=== PATIENT | female | born 1960 | race Caucasian/White ===

== ENCOUNTER 2017-11-16 03:11 | Inpatient (IN) | payer MEDICARE, OTHER ==
[2017-11-16] MEDS ORDERED: PROPOFOL 1,000 MG in EMPTY BAG 1 BAG IV ONE (03:20)
[2017-11-16] MEDS ORDERED: NALOXONE 0.4 MG/ML 1 ML VIAL IV PRN (03:48)
--- NOTE | 2017-11-16 03:53 | ED ---
General Adult HPI - General Chief complaint: Shortness of Breath Stated complaint: pneumonia Time Seen by Provider: 11/16/17 03:15 Source: EMS, RN notes reviewed, old records reviewed Mode of arrival: EMS Limitations: physical limitation - History of Present Illness Initial comments: This is a 57-year-old female to the ER for evaluation. Patient's transfer to [facility] in for evaluation of shortness of breath, patient is ambulate and abated secondary to respiratory failure. Patient is accepted in transfer for ICU admission - Related Data Allergies Allergy/AdvReac Type Severity Reaction Status Date / Time fentanyl AdvReac Unknown Verified 11/16/17 03:32 morphine AdvReac Unknown Verified 11/16/17 03:32 oxycodone AdvReac Unknown Verified 11/16/17 03:32 Penicillins AdvReac Unknown Verified 11/16/17 03:32 prednisone AdvReac Unknown Verified 11/16/17 03:44 pregabalin [From Lyrica] AdvReac Unknown Verified 11/16/17 03:32 Review of Systems ROS Statement: Those systems with pertinent positive or pertinent negative responses have been documented in the HPI. ROS Other: All systems not noted in ROS Statement are negative. Past Medical History Past Medical History: Asthma, Coronary Artery Disease (CAD), COPD, Fibromyalgia , Seizure Disorder Additional Past Medical History / Comment(s): arthritis, Headache, hypoglycemia , osteoporosis History of Any Multi-Drug Resistant Organisms: None Reported Past Surgical History: Hysterectomy Additional Past Surgical History / Comment(s): Arthroscopy of knee, Colonoscopy , EGD, c--section, neck-plate, carpal tunnel release, stents-, right rib 3 beningn tumors, ingrown toenail, liver biopsy, bunionectomy, catheterization of both left and right heart, mediport. Past Psychological History: Anxiety, Depression Smoking Status: Unknown if ever smoked Past Alcohol Use History: Unable to Obtain Past Drug Use History: Unable to Obtain General Exam Limitations: physical limitation General appearance: alert, obtunded, in distress Head exam: Present: atraumatic, normocephalic, normal inspection Eye exam: Present: normal appearance, PERRL, EOMI. Absent: scleral icterus, conjunctival injection, periorbital swelling ENT exam: Present: normal exam, mucous membranes moist Neck exam: Present: normal inspection. Absent: tenderness, meningismus, lymphadenopathy Respiratory exam: Present: respiratory distress, wheezes, accessory muscle use, decreased breath sounds, prolonged expiratory. Absent: rales, rhonchi, stridor Cardiovascular Exam: Present: regular rate, normal rhythm, normal heart sounds. Absent: systolic murmur, diastolic murmur, rubs, gallop, clicks GI/Abdominal exam: Present: soft, normal bowel sounds. Absent: distended, tenderness, guarding, rebound, rigid Extremities exam: Present: normal inspection, full ROM, normal capillary refill. Absent: tenderness, pedal edema, joint swelling, calf tenderness Back exam: Present: normal inspection Neurological exam: Present: alert, oriented X3, CN II-XII intact Psychiatric exam: Present: normal affect, normal mood Skin exam: Present: warm, dry, intact, normal color. Absent: rash Course Vital Signs 11/16/17 03:22 Temperature 97.5 F L Pulse Rate 100 Respiratory 16 Rate Blood Pressure 118/66 O2 Sat by Pulse 100 Oximetry - Reevaluation(s) Reevaluation #1: 11/16/17 03:52 Transferring paperwork is reviewed Reevaluation #2: 11/16/17 03:52 Spoke with transferring facility physician re patient condition Medical Decision Making - Medical Decision Making 57 female the ER for evaluation regarding respiratory failure, no history of lung cancer with severe Estrace stress, no improvement with breathing treatments per secondary facility. Patient was intubated and transferred to Hospital for ICU treatment - Radiology Data Radiology results: report reviewed (Chest x-ray positive pulmonary edema), image reviewed Critical Care Time Critical Care Time: Yes Total Critical Care Time: 31 Disposition Clinical Impression: Acute pulmonary edema, Pleural effusion, Acute respiratory failure Disposition: ADMITTED IP TO THIS [facility] Condition: Critical Referrals: Nonstaff,Physician [Primary Care Provider] - 1-2 days
[2017-11-16 03:58] LABS: ABG Base Excess 8.6 mmol/L; ABG HCO3 35 mmol/L (21-25); ABG PH 7.31 (7.35-7.45); ABG PO2 138 mmHg (83-108); ABG TCO2 37 mmol/L (19-24)
[2017-11-16] MEDS ORDERED: DEXTROSE 5%-0.45% NACL 1,000 ML IV SCH (04:00)
[2017-11-16 04:01] LABS: ABG PCO2 70 mmHg (35-45)
--- NOTE | 2017-11-16 04:17 | XR ---
EXAM: XR Chest, 1 View CLINICAL HISTORY: ITS.REASON XR Reason: Pain TECHNIQUE: Frontal view of the chest. COMPARISON: Chest x-ray dated 01/01/2016. FINDINGS: Lungs: Interval development of mild interstitial prominence in both perihilar and suprahilar regions. This is most notable in the right upper lobe with there is more focal opacity. Mild atelectasis in both lung bases. Pleural space: Unremarkable. No pneumothorax. Heart: Unremarkable. No cardiomegaly. Mediastinum: See above. Bones/joints: Unremarkable. Tubes, lines and devices: Endotracheal tube terminates approximately 1. 5 cm above the yamil. Recommend pulling back slightly. Other findings: Postop findings related to anterior cervical fusion. IMPRESSION: 1. Endotracheal tube terminates approximately 1.5 cm above the yamil. Recommend pulling back slightly. 2. Interval development of mild interstitial prominence in both perihilar and suprahilar regions. This is most notable in the right upper lobe with there is more focal opacity. This may represent scarring with possible superimposed pneumonia.
[2017-11-16 06:09] LABS: Glucose,Whole Blood 242 mg/dL (75-99)
[2017-11-16 06:09] LABS: Glucose,Whole Blood 235 mg/dL (75-99)
[2017-11-16] MEDS: PROPOFOL 1,000 MG in EMPTY BAG 1 BAG IV SCH ×4 (06:10→22:33)
[2017-11-16 06:53] LABS: Basophils % (A) 0 %; Eosinophils % (A) 0 %; HCT 32.9 % (34.0-46.0); HGB 10.4 gm/dL (11.4-16.0); Hypochromasia Slight; Lymphocytes # (A) 0.2 k/uL (1.0-4.8); Lymphocytes % (A) 2 %; MCH 29.9 pg (25.0-35.0); MCHC 31.4 g/dL (31.0-37.0); MCV 95.2 fL (80.0-100.0); Mean Platelet Volume 7.8; Monocytes # (A) 0.4 k/uL (0-1.0); Monocytes % (A) 3 %; Neutrophils # (A) 12.5 k/uL (1.3-7.7); Neutrophils % (A) 95 %; Platelet Count 192 k/uL (150-450); RBC 3.46 m/uL (3.80-5.40); RDW 15.3 % (11.5-15.5); WBC 13.2 k/uL (3.8-10.6)
[2017-11-16 07:11] LABS: Appearance,Urine Clear (Clear); Bacteria,Urine Rare /hpf; Bilirubin,Urine Negative (Negative); Blood,Urine Trace (Negative); Color,Urine Yellow; Glucose,Urine (UA) Negative (Negative); Hyaline Casts,Urine 7 /lpf (0-2); Ketones,Urine Negative (Negative); Leukocyte Esterase,Urine Negative (Negative); Mucus,Urine Few /hpf; Nitrite,Urine Negative (Negative); Protein,Urine 1+ (Negative); RBC,Urine 13 /hpf (0-5); Squamous Epithelial Cell,Urine 1 /hpf (0-4); Urobilinogen,Urine <2.0 mg/dL (<2.0); WBC,Urine 4 /hpf (0-5)
[2017-11-16] MEDS: SODIUM CHLORIDE 0.9% 1,000 ML IV SCH ×3 (07:11→23:49)
[2017-11-16 07:13] LABS: Anion Gap 11 mmol/L; Blood Urea Nitrogen 14 mg/dL (7-17); Calcium 8.8 mg/dL (8.4-10.2); Carbon Dioxide 31 mmol/L (22-30); Chloride 98 mmol/L (98-107); Glucose 214 mg/dL (74-99); Magnesium 2.1 mg/dL (1.6-2.3); Phosphorus 3.6 mg/dL (2.5-4.5); Potassium 3.7 mmol/L (3.5-5.1); Sodium 140 mmol/L (137-145)
[2017-11-16] MEDS: IPRATROPIUM-ALBUTEROL 3 ML NEB INHALATION SCH ×4 (07:30→19:32)
[2017-11-16] MEDS: LEVOFLOXACIN 750MG-D5W PMX 750 MG in DEXTROSE/WATER 1 150ML.BAG IVPB SCH (07:56)
[2017-11-16] MEDS: CHLORHEXIDINE GLUCONATE 15 ML CUP MUCOUS MEM SCH ×2 (07:56→20:10)
[2017-11-16] MEDS ORDERED: Potassium Replacement Protocol 1 EACH MISC MISCELLANE PRN (08:03)
[2017-11-16] MEDS: PANTOPRAZOLE 40 MG/10 ML VIAL IV SCH (08:28)
[2017-11-16] MEDS: ENOXAPARIN 40 MG/0.4 ML SYRINGE SQ SCH (08:28)
[2017-11-16] MEDS ORDERED: POTASSIUM BICARBONATE/CIT AC 20 MEQ TABLET.EFF NG-TUBE SCH (09:00)
[2017-11-16] MEDS: AZTREONAM 1 GM in SODIUM CHLORIDE 0.9% 50 ML IVPB SCH ×3 (10:01→23:49)
[2017-11-16 10:48] LABS: Glucose,Whole Blood 157 mg/dL (75-99)
--- NOTE | 2017-11-16 11:35 | P.HPIM ---
History of Present Illness Patient is a pleasant 57-year-old female came in intubated from [facility]. Patient wasn't a day with the severe exacerbation patient went into respiratory failure initially was on BiPAP subsequently intubated patient is presently on 50% FiO2 PEEP of 5 pedal edema 400. RASS 0 to -1. Patient had occasional upper lobe opacity because of which patient is on antibiotics in the form of levofloxacin and Azetreonam. Patient doesn't have any fevers. No significant out put endotracheal tube. Patient has an NG tube in place. Review of Systems Unable to obtain due to her clinical condition. Past Medical History Past Medical History: Asthma, Coronary Artery Disease (CAD), Cancer, Chest Pain / Angina, COPD, CVA/TIA, Fibromyalgia, GERD/Reflux, Hyperlipidemia, Hypertension , Myocardial Infarction ([place]), Osteoarthritis (OA), Respiratory Disorder, Seizure Disorder, Syncope Additional Past Medical History / Comment(s): Chronic respiratory failure, home O2 2L/NC ATC, R Lung cancer with surgery/chemo/radiation about 1.5 yrs ago (tx at [facility]), bronchitis, [place]-many years ago-exact date unknown, TIA, migraines, last seizure 2012, DJD, chronic back/cervical pain, limited ROM in neck, R knee pain/derangement, osteoporosis, IBS, benign colon lesion, diarrhea- chronic, hiatal hernia, insomnia, hypoglycemia, rhinitis, TMJ syndrome, R hand thumb tendon surgery-limited ROM and pt is R handed. Brother and caregiver state that pt has a very good apetite and eats well but continues to lose weight. Caregiver also jsut learned and is concerned that pt's last BM was a week ago. Last Myocardial Infarction Date:: unkn-years ago History of Any Multi-Drug Resistant Organisms: None Reported Past Surgical History: Section, Heart Catheterization, Heart Catheterization With Stent, Hysterectomy Additional Past Surgical History / Comment(s): R lung lobectomy, mediport, R rib 3 benign tumors, liver bx-nonmalignant tumor, PCI with stent 2011, EGDs, colonoscopy, cervical plate, knee arthroscopy-laterallity unknown, R carpal tunnel release, tendons cut toes bilateral feet, bilateral great toes bunionectomy/ingrown toenails, R thumb tendon surgery. Past Anesthesia/Blood Transfusion Reactions: No Reported Reaction Date of Last Stent Placement:: 08/03/12 Smoking Status: Current every day smoker - Past Family History Father History Unknown: Yes Additional Family Medical History / Comment(s): Father was an alcoholic and was murdered at the age of 52 yrs. Mother Family Medical History: Cancer, Coronary Artery Disease (CAD), Hypertension Additional Family Medical History / Comment(s): Mother of metastatic cancer -primary unknown to family. Medications and Allergies Home Medications Medication Instructions Recorded Confirmed Type Aspirin 81 mg PO DAILY 11/16/17 11/16/17 History Clopidogrel [Plavix] 75 mg PO DAILY 11/16/17 11/16/17 History Dronedarone [Multaq] 400 mg PO AC-BID 11/16/17 11/16/17 History Ezetimibe [Zetia] 10 mg PO DAILY 11/16/17 11/16/17 History Fludrocortisone [Florinef] 0.1 mg PO BID 11/16/17 11/16/17 History Fluticasone/Salmeterol [Advair 1 puff INHALATION RT-DAILY 11/16/17 11/16/17 History 500-50 Diskus] HYDROcodone/APAP 10-325MG [Mojave 10 mg PO TID 11/16/17 11/16/17 History 10-325] Ipratropium/Albuterol Sulfate 1 puff INHALATION RT-QID 11/16/17 11/16/17 History [Combivent Respimat Inhaler] Isosorbide Mononitrate ER [Imdur] 30 mg PO DAILY 11/16/17 11/16/17 History LORazepam [Ativan] 0.5 mg PO BID 11/16/17 11/16/17 History Lubiprostone [Amitiza] 8 mcg PO DAILY 11/16/17 11/16/17 History Midodrine [ProAmatine] 5 mg PO TID 11/16/17 11/16/17 History Montelukast [Singulair] 10 mg PO DAILY 11/16/17 11/16/17 History Nitroglycerin Sl Tabs [Nitrostat] 0.4 mg SUBLINGUAL Q5M PRN 11/16/17 11/16/17 History Pitavastatin Calcium [Livalo] 4 mg PO DAILY 11/16/17 11/16/17 History Potassium Chloride ER [K-Dur 20] 20 meq PO DAILY 11/16/17 11/16/17 History Ranolazine [Ranexa] 500 mg PO BID 11/16/17 11/16/17 History lamoTRIgine [LaMICtal] 200 mg PO DAILY 11/16/17 11/16/17 History Allergies Allergy/AdvReac Type Severity Reaction Status Date / Time fentanyl AdvReac Unknown Verified 11/16/17 07:48 morphine AdvReac Unknown Verified 11/16/17 07:48 oxycodone AdvReac Unknown Verified 11/16/17 07:48 Penicillins AdvReac Unknown Verified 11/16/17 07:48 prednisone AdvReac Unknown Verified 11/16/17 07:48 pregabalin [From Lyrica] AdvReac Unknown Verified 11/16/17 07:48 Physical Exam Vitals: Vital Signs Temp Pulse Resp BP Pulse Ox 11/16/17 11:00 97.2 F L 90 20 133/69 97 11/16/17 10:30 91 18 137/73 97 11/16/17 10:00 89 17 118/65 96 11/16/17 09:30 88 14 125/68 99 11/16/17 09:00 88 19 116/63 100 11/16/17 08:30 89 19 122/66 100 11/16/17 08:00 96.9 F L 90 20 110/64 100 11/16/17 07:52 91 11/16/17 07:33 88 11/16/17 07:30 88 19 111/65 100 11/16/17 07:00 89 20 104/59 100 11/16/17 06:30 89 21 100/58 99 11/16/17 06:15 98.0 F 89 19 140/61 100 11/16/17 06:06 91 11/16/17 05:23 90 16 139/70 94 L 11/16/17 04:30 92 16 116/60 100 11/16/17 03:58 16 11/16/17 03:30 91 18 118/66 100 11/16/17 03:22 97.5 F L 100 16 118/66 100 Intake and Output 11/15/17 11/16/17 11/16/17 22:59 06:59 14:59 Intake Total 1.169 505.923 Output Total 325 160 Balance -323.831 345.923 Intake: IV 475 Sodium Chloride 0.9% 1, 475 000 ml @ 125 mls/hr IV . Q8H [facility] Rx#:[id number] Intake, IV Titration 1.169 30.923 Amount Propofol 1,000 mg In 1.169 Empty Bag 1 bag @ Titrate IV .Q0M [facility] Rx#: [id number] Propofol 1,000 mg In 30.923 Empty Bag 1 bag @ Titrate IV .Q0M [facility] Rx#: [id number] Output: Gastric Drainage 175 Urine 150 160 Uretheral (Bass) 150 Other: Voiding Method Incontinent Incontinent Weight 41.1 kg 41.1 kg PHYSICAL EXAMINATION: GENERAL: Intubated arousable, ventilator settings as mentioned above. HEENT: Pupils are round and equally reacting to light. EOMI. No scleral icterus. No conjunctival pallor. Normocephalic, atraumatic. No pharyngeal erythema. No thyromegaly. CARDIOVASCULAR: S1 and S2 present. No murmurs, rubs, or gallops. PULMONARY: Decreased air entry with expiratory wheezing ABDOMEN: Soft, nontender, nondistended, normoactive bowel sounds. No palpable organomegaly. MUSCULOSKELETAL: No joint swelling or deformity. EXTREMITIES: No cyanosis, clubbing, or pedal edema. NEUROLOGICAL: Moving all 4 limbs SKIN: No rashes. Results CBC & Chem 7: 11/16/17 06:33 11/16/17 06:33 Labs: Abnormal Lab Results - Last 24 Hours (Table) 11/16/17 11/16/17 11/16/17 Range/Units 03:54 06:06 06:07 WBC (3.8-10.6) k/uL RBC (3.80-5.40) m/uL Hgb (11.4-16.0) gm/dL Hct (34.0-46.0) % Neutrophils # (1.3-7.7) k/uL Lymphocytes # (1.0-4.8) k/uL ABG pH 7.31 L (7.35-7.45) ABG pCO2 70 H* (35-45) mmHg ABG pO2 138 H (83-108) mmHg ABG HCO3 35 H (21-25) mmol/L ABG Total CO2 37 H (19-24) mmol/L ABG O2 Saturation 99.0 H (94-97) % Carbon Dioxide (22-30) mmol/L Creatinine (0.52-1.04) mg/dL Glucose (74-99) mg/dL POC Glucose (mg/dL) 242 H 235 H (75-99) mg/dL Urine Protein (Negative) Urine Blood (Negative) Urine RBC (0-5) /hpf Urine Bacteria (None) /hpf Hyaline Casts (0-2) /lpf Urine Mucus (None) /hpf 11/16/17 11/16/17 11/16/17 Range/Units 06:33 06:33 06:45 WBC 13.2 H (3.8-10.6) k/uL RBC 3.46 L (3.80-5.40) m/uL Hgb 10.4 L (11.4-16.0) gm/dL Hct 32.9 L (34.0-46.0) % Neutrophils # 12.5 H (1.3-7.7) k/uL Lymphocytes # 0.2 L (1.0-4.8) k/uL ABG pH (7.35-7.45) ABG pCO2 (35-45) mmHg ABG pO2 (83-108) mmHg ABG HCO3 (21-25) mmol/L ABG Total CO2 (19-24) mmol/L ABG O2 Saturation (94-97) % Carbon Dioxide 31 H (22-30) mmol/L Creatinine 0.35 L (0.52-1.04) mg/dL Glucose 214 H (74-99) mg/dL POC Glucose (mg/dL) (75-99) mg/dL Urine Protein 1+ H (Negative) Urine Blood Trace H (Negative) Urine RBC 13 H (0-5) /hpf Urine Bacteria Rare H (None) /hpf Hyaline Casts 7 H (0-2) /lpf Urine Mucus Few H (None) /hpf 11/16/17 Range/Units 10:45 WBC (3.8-10.6) k/uL RBC (3.80-5.40) m/uL Hgb (11.4-16.0) gm/dL Hct (34.0-46.0) % Neutrophils # (1.3-7.7) k/uL Lymphocytes # (1.0-4.8) k/uL ABG pH (7.35-7.45) ABG pCO2 (35-45) mmHg ABG pO2 (83-108) mmHg ABG HCO3 (21-25) mmol/L ABG Total CO2 (19-24) mmol/L ABG O2 Saturation (94-97) % Carbon Dioxide (22-30) mmol/L Creatinine (0.52-1.04) mg/dL Glucose (74-99) mg/dL POC Glucose (mg/dL) 157 H (75-99) mg/dL Urine Protein (Negative) Urine Blood (Negative) Urine RBC (0-5) /hpf Urine Bacteria (None) /hpf Hyaline Casts (0-2) /lpf Urine Mucus (None) /hpf Microbiology - Last 24 Hours (Table) 11/16/17 03:24 Sputum Culture - Preliminary Sputum 11/16/17 06:45 Urine Culture - Preliminary Urine,Catheterized Thrombosis Risk Factor Assmnt - Choose All That Apply Any of the Below Risk Factors Present?: Yes Each Factor Represents 1 point: Abnormal pulmonary function (COPD), Age 41-60 years, Serious lung disease incl. pneumonia (< 1month) Other Risk Factors: Yes Each Risk Factor Represents 2 Points: Patient confined to bed, Malignancy Other congenital or acquired thrombophilia - If yes, enter type in comment: No Thrombosis Risk Factor Assessment Total Risk Factor Score: 7 Thrombosis Risk Factor Assessment Level: High Risk Assessment and Plan Plan: -Acute hypercapnic respiratory failure: Secondary to COPD exacerbation patient is ventilator dependent at this point of time. Doing clinically well can you assist with strides and medics as mentioned above. She doesn't use oxygen at home. -right upper lobe pneumonia -Mild protein Malnutrition: From chronic smoking. Carotid artery disease -Hyperlipidemia -hypertension -Gases patient is reflux disease for rest of the above-mentioned chronic medical problems patient will be resumed on appropriate home medications.
--- NOTE | 2017-11-16 13:31 | P.CNPUL ---
History of Present Illness Consult date: 11/16/17 Requesting physician: Lori Juarez Reason for consult: other (Acute hypoxic and hypercapnic respiratory failure secondary to COPD) Chief complaint: Shortness of breath cough History of present illness: This is a 57-year-old female with history of severe underlying COPD, patient is O2 dependent, but not prednisone dependent. Known history of lung cancer and previous lobectomy followed by chemotherapy and radiation therapy done in [facility]. Patient never seen a morning nanny, has been followed mostly by her oncologist all along. She is also followed by her primary care physician Dr. Nguyen. On Monday, the patient presented to [facility] complaining of shortness of breath and cough, some workup was done according to the family including a CT of the chest, patient was discharged home and advised to follow-up with her primary care physician. She was told that the workup did not show any significant abnormalities. However she was reevaluated again in the ER complaining of worsening shortness of breath cough and wheezing. Apparently she was in severe respiratory distress and she was intubated. Transferred to [facility], admitted to the ICU, and I was asked to see her on consultation. Patient was felt to have severe hypoxic and hypercapnic respiratory failure requiring intubation and mechanical ventilation. Chest x-ray showed adequate placement of the endotracheal tube, it also showed some mild interstitial prominence in the perihilar and suprahilar regions and a minimal focal opacity noted in the right upper lobe. This is a new finding compared to chest x-ray from December of 2015. Patient was placed on bronchodilators, antibiotics, steroids, and she was also placed on GI and DVT prophylaxis/vent bundle. Patient is sedated, on propofol, however I was able to obtain adequate history from family members at bedside. Review of Systems According to the family patient has been losing significant amount of weight over the last few months. ROS unobtainable: due to endotracheal tube (According to the family, patient has been relatively asymptomatic until 2 days ago. Please refer to the history of present illness. No history suggestive recurrent lung cancer, no headaches no blurred vision no dizziness, no nausea no vomiting no abdominal pain no melena no hematemesis no dysuria and no frequency no urgency.) All systems: negative (Some weight loss according to family members over the last few months.) Past Medical History Past Medical History: Asthma, Coronary Artery Disease (CAD), Cancer, Chest Pain / Angina, COPD, CVA/TIA, Fibromyalgia, GERD/Reflux, Hyperlipidemia, Hypertension , Myocardial Infarction (AR), Osteoarthritis (OA), Respiratory Disorder, Seizure Disorder, Syncope Additional Past Medical History / Comment(s): Chronic respiratory failure, home O2 2L/NC ATC, R Lung cancer with surgery/chemo/radiation about 1.5 yrs ago (tx at [facility]), bronchitis, AR-many years ago-exact date unknown, TIA, migraines, last seizure 2012, DJD, chronic back/cervical pain, limited ROM in neck, R knee pain/derangement, osteoporosis, IBS, benign colon lesion, diarrhea- chronic, hiatal hernia, insomnia, hypoglycemia, rhinitis, TMJ syndrome, R hand thumb tendon surgery-limited ROM and pt is R handed. Brother and caregiver state that pt has a very good apetite and eats well but continues to lose weight. Caregiver also jsut learned and is concerned that pt's last BM was a week ago. Last Myocardial Infarction Date:: unkn-years ago History of Any Multi-Drug Resistant Organisms: None Reported Past Surgical History: Section, Heart Catheterization, Heart Catheterization With Stent, Hysterectomy Additional Past Surgical History / Comment(s): R lung lobectomy, mediport, R rib 3 benign tumors, liver bx-nonmalignant tumor, PCI with stent 2011, EGDs, colonoscopy, cervical plate, knee arthroscopy-laterallity unknown, R carpal tunnel release, tendons cut toes bilateral feet, bilateral great toes bunionectomy/ingrown toenails, R thumb tendon surgery. Past Anesthesia/Blood Transfusion Reactions: No Reported Reaction Date of Last Stent Placement:: 08/03/12 Smoking Status: Current every day smoker - Past Family History Father History Unknown: Yes Additional Family Medical History / Comment(s): Father was an alcoholic and was murdered at the age of 52 yrs. Mother Family Medical History: Cancer, Coronary Artery Disease (CAD), Hypertension Additional Family Medical History / Comment(s): Mother of metastatic cancer -primary unknown to family. Medications and Allergies Home Medications Medication Instructions Recorded Confirmed Type Aspirin 81 mg PO DAILY 11/16/17 11/16/17 History Clopidogrel [Plavix] 75 mg PO DAILY 11/16/17 11/16/17 History Dronedarone [Multaq] 400 mg PO AC-BID 11/16/17 11/16/17 History Ezetimibe [Zetia] 10 mg PO DAILY 11/16/17 11/16/17 History Fludrocortisone [Florinef] 0.1 mg PO BID 11/16/17 11/16/17 History Fluticasone/Salmeterol [Advair 1 puff INHALATION RT-DAILY 11/16/17 11/16/17 History 500-50 Diskus] HYDROcodone/APAP 10-325MG [[place] 10 mg PO TID 11/16/17 11/16/17 History 10-325] Ipratropium/Albuterol Sulfate 1 puff INHALATION RT-QID 11/16/17 11/16/17 History [Combivent Respimat Inhaler] Isosorbide Mononitrate ER [Imdur] 30 mg PO DAILY 11/16/17 11/16/17 History LORazepam [Ativan] 0.5 mg PO BID 11/16/17 11/16/17 History Lubiprostone [Amitiza] 8 mcg PO DAILY 11/16/17 11/16/17 History Midodrine [ProAmatine] 5 mg PO TID 11/16/17 11/16/17 History Montelukast [Singulair] 10 mg PO DAILY 11/16/17 11/16/17 History Nitroglycerin Sl Tabs [Nitrostat] 0.4 mg SUBLINGUAL Q5M PRN 11/16/17 11/16/17 History Pitavastatin Calcium [Livalo] 4 mg PO DAILY 11/16/17 11/16/17 History Potassium Chloride ER [K-Dur 20] 20 meq PO DAILY 11/16/17 11/16/17 History Ranolazine [Ranexa] 500 mg PO BID 11/16/17 11/16/17 History lamoTRIgine [LaMICtal] 200 mg PO DAILY 11/16/17 11/16/17 History Allergies Allergy/AdvReac Type Severity Reaction Status Date / Time fentanyl AdvReac Unknown Verified 11/16/17 07:48 morphine AdvReac Unknown Verified 11/16/17 07:48 oxycodone AdvReac Unknown Verified 11/16/17 07:48 Penicillins AdvReac Unknown Verified 11/16/17 07:48 prednisone AdvReac Unknown Verified 11/16/17 07:48 pregabalin [From Lyrica] AdvReac Unknown Verified 11/16/17 07:48 Physical Exam Vitals: Vital Signs Temp Pulse Resp BP Pulse Ox 11/16/17 13:00 100 18 163/79 96 11/16/17 12:30 90 20 156/75 99 11/16/17 12:00 97.2 F L 90 17 161/80 100 11/16/17 11:57 92 11/16/17 11:33 89 11/16/17 11:30 88 14 154/79 99 11/16/17 11:00 97.2 F L 90 20 133/69 97 11/16/17 10:30 91 18 137/73 97 11/16/17 10:00 89 17 118/65 96 11/16/17 09:30 88 14 125/68 99 11/16/17 09:00 88 19 116/63 100 11/16/17 08:30 89 19 122/66 100 11/16/17 08:00 96.9 F L 90 20 110/64 100 11/16/17 07:52 91 11/16/17 07:33 88 11/16/17 07:30 88 19 111/65 100 11/16/17 07:00 89 20 104/59 100 11/16/17 06:30 89 21 100/58 99 11/16/17 06:15 98.0 F 89 19 140/61 100 11/16/17 06:06 91 11/16/17 05:23 90 16 139/70 94 L 11/16/17 04:30 92 16 116/60 100 11/16/17 03:58 16 11/16/17 03:30 91 18 118/66 100 11/16/17 03:22 97.5 F L 100 16 118/66 100 Intake and Output 11/15/17 11/16/17 11/16/17 22:59 06:59 14:59 Intake Total 1.169 755.923 Output Total 325 275 Balance -323.831 480.923 Intake: IV 725 Sodium Chloride 0.9% 1, 725 000 ml @ 125 mls/hr IV . Q8H [facility] Rx#:[id number] Intake, IV Titration 1.169 30.923 Amount Propofol 1,000 mg In 1.169 Empty Bag 1 bag @ Titrate IV .Q0M [facility] Rx#: [id number] Propofol 1,000 mg In 30.923 Empty Bag 1 bag @ Titrate IV .Q0M [facility] Rx#: [id number] Output: Gastric Drainage 175 Urine 150 275 Uretheral (Bass) 150 Other: Voiding Method Incontinent Incontinent Weight 41.1 kg 41.1 kg Physical Exam: Revealed a 57-year-old female, intubated, on mechanical ventilation. Patient looks cachectic, and chronically ill, frail. Head: Atraumatic, normocephalic, Eyes: PERRLA, EOMI, no icterus. HEENT: Dry mucous membranes. [Neck is supple.] [No neck masses.] [No thyromegaly.] [No JVD.] Endotracheal tube seems to be intact. Chest: [Diminished breath sounds at the bases, some wheezing bilaterally, no chest wall tenderness, symmetrical expansion noted. Cardiac Exam: [Normal S1 and S2, no S3 gallop, no murmur.] Abdomen: [Soft, nontender, no megaly, no rebound, no guarding, normal bowel sounds.] Extremities: [No clubbing, no edema, no cyanosis.] Neurological Exam: Arousable, follows simple instructions, presently on propofol. Psychiatric: Could not be assessed while on mechanical ventilation. Musculoskeletal: Could not be fully assessed. Results - Laboratory Findings CBC and BMP: 11/16/17 06:33 11/16/17 06:33 ABG ABG pH 7.31 (7.35-7.45) L 11/16/17 03:54 ABG pCO2 70 mmHg (35-45) H* 11/16/17 03:54 ABG pO2 138 mmHg (83-108) H 11/16/17 03:54 ABG O2 Saturation 99.0 % (94-97) H 11/16/17 03:54 Abnormal lab findings: Abnormal Labs 11/16/17 11/16/17 11/16/17 03:54 06:06 06:07 WBC RBC Hgb Hct Neutrophils # Lymphocytes # ABG pH 7.31 L ABG pCO2 70 H* ABG pO2 138 H ABG HCO3 35 H ABG Total CO2 37 H ABG O2 Saturation 99.0 H Carbon Dioxide Creatinine Glucose POC Glucose (mg/dL) 242 H 235 H Urine Protein Urine Blood Urine RBC Urine Bacteria Hyaline Casts Urine Mucus 11/16/17 11/16/17 11/16/17 06:33 06:33 06:45 WBC 13.2 H RBC 3.46 L Hgb 10.4 L Hct 32.9 L Neutrophils # 12.5 H Lymphocytes # 0.2 L ABG pH ABG pCO2 ABG pO2 ABG HCO3 ABG Total CO2 ABG O2 Saturation Carbon Dioxide 31 H Creatinine 0.35 L Glucose 214 H POC Glucose (mg/dL) Urine Protein 1+ H Urine Blood Trace H Urine RBC 13 H Urine Bacteria Rare H Hyaline Casts 7 H Urine Mucus Few H 11/16/17 10:45 WBC RBC Hgb Hct Neutrophils # Lymphocytes # ABG pH ABG pCO2 ABG pO2 ABG HCO3 ABG Total CO2 ABG O2 Saturation Carbon Dioxide Creatinine Glucose POC Glucose (mg/dL) 157 H Urine Protein Urine Blood Urine RBC Urine Bacteria Hyaline Casts Urine Mucus - Diagnostic Findings Chest x-ray: image reviewed (As noted in HPI.) Assessment and Plan Assessment: Impression: 1 acute hypoxic and hypercapnic respiratory failure requiring intubation and mechanical ventilation secondary to COPD, suspect underlying right upper lobe community-acquired pneumonia. 2 history of bronchogenic carcinoma, previous lobectomy followed by radiation and chemotherapy in the last few years. 3 acute community-acquired the right upper lobe pneumonia is strongly suspected. 4 history of coronary artery disease 5 history of fibromyalgia 6 history of benign essential hypertension 7 history of previous AR 8 history of seizure disorder, last seizure was in 2012. 9 history of GERD 10 history of migraine cephalgia. 11 history of irritable bowel syndrome with chronic diarrhea. And intermittent constipation. Recommendation: Continue present supportive care measures, continue mechanical ventilation, antibiotics, bronchodilators, steroids, nutritional support, GI and DVT prophylaxis, had a long discussion with all family members at bedside, plan to address reevaluation for possible weaning in the next 24 hours. All her labs, x-rays, medications, were all reviewed. We'll continue to follow closely. Critical care time is 45 minutes. Time with Patient: Greater than 30
[2017-11-16] MEDS: DEXAMETHASONE SOD PHOSPHATE 4 MG/ML 1 ML VIAL IV SCH ×3 (14:14→23:50)
[2017-11-16 14:50] LABS: Hemoglobin A1C 5.5 % (4.0-6.0)
[2017-11-16] MEDS: ATENOLOL 25 MG TAB PO SCH ×2 (15:21→20:10)
[2017-11-16] MEDS ORDERED: ISOSORBIDE MONONITRATE ER 30 MG TAB.ER.24H PO SCH ×2 (15:59→17:00)
[2017-11-16 17:33] LABS: Glucose,Whole Blood 109 mg/dL (75-99)
[2017-11-16] MEDS: ISOSORBIDE DINITRATE 10 MG TAB PO SCH ×2 (17:38→23:49)
[2017-11-16] MEDS: LORazepam 2 MG/ML INJ IV PRN ×2 (18:37→21:34)
[2017-11-16] MEDS: lamoTRIgine 100 MG TAB PO SCH (20:11)
[2017-11-16] MEDS: hydrALAZINE HCL 20 MG/ML 1 ML VIAL IVP PRN (22:34)
[2017-11-17 01:56] LABS: Glucose,Whole Blood 149 mg/dL (75-99)
[2017-11-17 04:44] LABS: Basophils % (A) 0 %; Eosinophils % (A) 0 %; HCT 31.2 % (34.0-46.0); HGB 9.9 gm/dL (11.4-16.0); Hypochromasia Slight; Lymphocytes # (A) 0.3 k/uL (1.0-4.8); Lymphocytes % (A) 4 %; MCH 29.8 pg (25.0-35.0); MCHC 31.6 g/dL (31.0-37.0); MCV 94.5 fL (80.0-100.0); Mean Platelet Volume 8.6; Monocytes # (A) 0.3 k/uL (0-1.0); Monocytes % (A) 4 %; Neutrophils # (A) 7.4 k/uL (1.3-7.7); Neutrophils % (A) 92 %; Platelet Count 187 k/uL (150-450); RDW 15.4 % (11.5-15.5); WBC 8.1 k/uL (3.8-10.6)
[2017-11-17 05:04] LABS: ALT 28 U/L (9-52); AST 11 U/L (14-36); Albumin 2.7 g/dL (3.5-5.0); Alkaline Phosphatase 78 U/L (38-126); Anion Gap 8 mmol/L; Blood Urea Nitrogen 17 mg/dL (7-17); Calcium 9.1 mg/dL (8.4-10.2); Carbon Dioxide 29 mmol/L (22-30); Chloride 103 mmol/L (98-107); Glucose 150 mg/dL (74-99); Magnesium 1.9 mg/dL (1.6-2.3); Phosphorus 3.7 mg/dL (2.5-4.5); Potassium 3.9 mmol/L (3.5-5.1); Sodium 140 mmol/L (137-145); Total Bilirubin 0.2 mg/dL (0.2-1.3); Total Protein 5.2 g/dL (6.3-8.2)
[2017-11-17] MEDS ORDERED: Magnesium Replacement Protocol 1 EACH MISC MISCELLANE PRN (05:30)
[2017-11-17 05:37] LABS: Glucose,Whole Blood 139 mg/dL (75-99)
[2017-11-17] MEDS ORDERED: POTASSIUM BICARBONATE/CIT AC 20 MEQ TABLET.EFF NG-TUBE SCH (06:00)
[2017-11-17] MEDS: MAGNESIUM SULFATE-D5W PMX 1 GM in DEXTROSE/WATER 1 100ML.BAG IVPB SCH ×2 (06:03→08:48)
[2017-11-17] MEDS: DEXAMETHASONE SOD PHOSPHATE 4 MG/ML 1 ML VIAL IV SCH ×3 (06:03→18:31)
[2017-11-17] MEDS: SODIUM CHLORIDE 0.9% 1,000 ML IV SCH ×3 (06:34→23:03)
[2017-11-17] MEDS: LEVOFLOXACIN 750MG-D5W PMX 750 MG in DEXTROSE/WATER 1 150ML.BAG IVPB SCH (07:07)
[2017-11-17] MEDS: IPRATROPIUM-ALBUTEROL 3 ML NEB INHALATION SCH ×4 (07:10→18:33)
[2017-11-17 08:23] LABS: ABG Base Excess 7.8 mmol/L; ABG HCO3 32 mmol/L (21-25); ABG Oxygen Saturation 97.7 % (94-97); ABG PCO2 45 mmHg (35-45); ABG PH 7.46 (7.35-7.45); ABG PO2 102 mmHg (83-108); ABG TCO2 33 mmol/L (19-24)
[2017-11-17] MEDS: PROPOFOL 1,000 MG in EMPTY BAG 1 BAG IV SCH ×2 (08:44→17:12)
[2017-11-17] MEDS: LORazepam 2 MG/ML INJ IV PRN ×2 (08:44→16:18)
[2017-11-17] MEDS: CHLORHEXIDINE GLUCONATE 15 ML CUP MUCOUS MEM SCH ×2 (08:52→21:09)
[2017-11-17] MEDS: ISOSORBIDE DINITRATE 10 MG TAB PO SCH ×3 (08:52→21:09)
[2017-11-17] MEDS: ATENOLOL 25 MG TAB PO SCH ×2 (08:52→21:09)
[2017-11-17] MEDS: ENOXAPARIN 40 MG/0.4 ML SYRINGE SQ SCH (08:52)
[2017-11-17] MEDS: PANTOPRAZOLE 40 MG/10 ML VIAL IV SCH (08:53)
[2017-11-17] MEDS: lamoTRIgine 100 MG TAB PO SCH (08:54)
[2017-11-17] MEDS ORDERED: ISOSORBIDE MONONITRATE ER 30 MG TAB.ER.24H PO SCH (09:00)
[2017-11-17] MEDS ORDERED: lamoTRIgine 100 MG TAB PO SCH (09:00)
--- NOTE | 2017-11-17 09:15 | XR ---
EXAMINATION TYPE: XR chest 1V DATE OF EXAM: 11/17/2017 COMPARISON: 11/16/2017 HISTORY: Pain TECHNIQUE: Single frontal view of the chest is obtained. FINDINGS: Hyperinflation compatible COPD and there is blunting of both costophrenic angles. Prominen ce the right hilum noted. ET tube noted with Mediport catheter. Surgical change overlying the cervica l spine. No sizable pneumothorax. Interstitium is stable. Tenting of the right hemidiaphragm likely i s chronic. IMPRESSION: Correlate for COPD. There is mild improvement of the interstitium. The right hilum does appear to be prominent in size and there is previous surgery. Correlate clinically. Follow-up CT scan could BE obtained as clinically warranted.
[2017-11-17] MEDS ORDERED: BISACODYL 10 MG SUPP RECTAL STA (09:51)
[2017-11-17] MEDS: LACTULOSE 20 GM/30 ML CUP PO SCH ×2 (10:07→21:10)
[2017-11-17] MEDS: AZTREONAM 1 GM in SODIUM CHLORIDE 0.9% 50 ML IVPB SCH (10:10)
[2017-11-17 12:07] LABS: Glucose,Whole Blood 110 mg/dL (75-99)
--- NOTE | 2017-11-17 12:35 | P.PN ---
Subjective Progress Note Date: 11/17/17 Principal diagnosis: Acute hypoxic and hypercapnic respiratory failure secondary to COPD and right upper lobe community-acquired pneumonia. This is a 57-year-old female with history of severe underlying COPD, patient is O2 dependent, but not prednisone dependent. Known history of lung cancer and previous lobectomy followed by chemotherapy and radiation therapy done in [facility]. Patient never seen a professional model, has been followed mostly by her oncologist all along. She is also followed by her primary care physician Dr. Nguyen. On Monday, the patient presented to [facility] complaining of shortness of breath and cough, some workup was done according to the family including a CT of the chest, patient was discharged home and advised to follow-up with her primary care physician. She was told that the workup did not show any significant abnormalities. However she was reevaluated again in the ER complaining of worsening shortness of breath cough and wheezing. Apparently she was in severe respiratory distress and she was intubated. Transferred to [facility], admitted to the ICU, and I was asked to see her on consultation. Patient was felt to have severe hypoxic and hypercapnic respiratory failure requiring intubation and mechanical ventilation. Chest x-ray showed adequate placement of the endotracheal tube, it also showed some mild interstitial prominence in the perihilar and suprahilar regions and a minimal focal opacity noted in the right upper lobe. This is a new finding compared to chest x-ray from December of 2015. Patient was placed on bronchodilators, antibiotics, steroids, and she was also placed on GI and DVT prophylaxis/vent bundle. Patient is sedated, on propofol, however I was able to obtain adequate history from family members at bedside. Reevaluated today on 11/17/2017, patient remains on mechanical ventilation, same vent settings, no evidence of receiving pink, and her plateau pressures are in the teens. ABG showed a pO2 of 102 pCO2 of 45 pH of 7.46. Patient remains on propofol, and at times was given Ativan for sedation and for significantly elevated blood pressure she is also on Apresoline as needed for high blood pressure. Patient continues to have significant amount of secretions via the endotracheal tube, hence no plans to wean and extubate today. Patient has been appropriate as far as the mental status is concerned, I lower dose of sedation she seems to follow all instructions. Her CBC is relatively normal except for hemoglobin of 9.9. Electrolytes and basic metabolic profile are normal. ABG showed a pO2 of 102 pCO2 of 45 pH of 7.46. Reflecting mostly a picture of metabolic alkalosis. And adequate respiratory compensation. Chest x-ray showed mild improvement, however the right hilum does appear a bit prominent. Objective - Vital Signs Vital signs: Vital Signs Temp 98.1 F 11/17/17 08:00 Pulse 84 11/17/17 11:20 Resp 20 11/17/17 11:00 BP 144/78 11/17/17 11:00 Pulse Ox 99 11/17/17 11:00 Intake & Output 11/16/17 11/17/17 11/17/17 18:59 06:59 18:59 Intake Total 9611.153 9221.6 889.667 Output Total 665 900 480 Balance 527.031 7087.6 409.667 Weight 41.1 kg 39.2 kg Intake: IV 1350 1500 325 Sodium Chloride 0.9% 1, 1350 1500 325 000 ml @ 125 mls/hr IV . Q8H [facility] Rx#:[id number] Intake, IV Titration 119.770 161.6 314.667 Amount Aztreonam 1 gm In Sodium 50 Chloride 0.9% 50 ml @ 100 mls/hr IVPB Q8HR [facility] Rx# :[id number] Levofloxacin 750Mg-D5w 150 Pmx 750 mg In Dextrose/ Water 1 150ml.bag @ 100 mls/hr IVPB Q24H [facility] Rx#: [id number] Magnesium Sulfate-D5w Pmx 100 1 gm In Dextrose/Water 1 100ml.bag @ 100 mls/hr IVPB Q1H [facility] Rx#: [id number] Propofol 1,000 mg In 119.770 161.6 14.667 Empty Bag 1 bag @ Titrate IV .Q0M [facility] Rx#: [id number] Tube Feeding 20 322 120 Other 60 130 Output: Urine 665 900 480 Other: Voiding Method Incontinent Indwelling Catheter Indwelling Catheter - Exam Physical Exam: Revealed a 57-year-old female, intubated, on mechanical ventilation. Patient looks cachectic, and chronically ill, frail. Head: Atraumatic, normocephalic, Eyes: PERRLA, EOMI, no icterus. HEENT: Dry mucous membranes. [Neck is supple.] [No neck masses.] [No thyromegaly.] [No JVD.] Endotracheal tube seems to be intact. Chest: [Diminished breath sounds at the bases, some wheezing bilaterally, no chest wall tenderness, symmetrical expansion noted. Cardiac Exam: [Normal S1 and S2, no S3 gallop, no murmur.] Abdomen: [Soft, nontender, no megaly, no rebound, no guarding, normal bowel sounds.] Extremities: [No clubbing, no edema, no cyanosis.] Neurological Exam: Arousable, follows simple instructions, presently on propofol. Psychiatric: Could not be assessed while on mechanical ventilation. Musculoskeletal: Could not be fully assessed. - Labs CBC & Chem 7: 11/17/17 04:32 11/17/17 04:32 Labs: Abnormal Lab Results - Last 24 Hours (Table) 11/16/17 11/17/17 11/17/17 Range/Units 17:31 01:53 04:32 RBC 3.30 L (3.80-5.40) m/uL Hgb 9.9 L (11.4-16.0) gm/dL Hct 31.2 L (34.0-46.0) % Lymphocytes # 0.3 L (1.0-4.8) k/uL ABG pH (7.35-7.45) ABG HCO3 (21-25) mmol/L ABG Total CO2 (19-24) mmol/L ABG O2 Saturation (94-97) % Creatinine (0.52-1.04) mg/dL Glucose (74-99) mg/dL POC Glucose (mg/dL) 109 H 149 H (75-99) mg/dL AST (14-36) U/L Total Protein (6.3-8.2) g/dL Albumin (3.5-5.0) g/dL 11/17/17 11/17/17 11/17/17 Range/Units 04:32 05:36 08:20 RBC (3.80-5.40) m/uL Hgb (11.4-16.0) gm/dL Hct (34.0-46.0) % Lymphocytes # (1.0-4.8) k/uL ABG pH 7.46 H (7.35-7.45) ABG HCO3 32 H (21-25) mmol/L ABG Total CO2 33 H (19-24) mmol/L ABG O2 Saturation 97.7 H (94-97) % Creatinine 0.40 L (0.52-1.04) mg/dL Glucose 150 H (74-99) mg/dL POC Glucose (mg/dL) 139 H (75-99) mg/dL AST 11 L (14-36) U/L Total Protein 5.2 L (6.3-8.2) g/dL Albumin 2.7 L (3.5-5.0) g/dL 11/17/17 Range/Units 12:05 RBC (3.80-5.40) m/uL Hgb (11.4-16.0) gm/dL Hct (34.0-46.0) % Lymphocytes # (1.0-4.8) k/uL ABG pH (7.35-7.45) ABG HCO3 (21-25) mmol/L ABG Total CO2 (19-24) mmol/L ABG O2 Saturation (94-97) % Creatinine (0.52-1.04) mg/dL Glucose (74-99) mg/dL POC Glucose (mg/dL) 110 H (75-99) mg/dL AST (14-36) U/L Total Protein (6.3-8.2) g/dL Albumin (3.5-5.0) g/dL Microbiology - Last 24 Hours (Table) 11/16/17 03:24 Gram Stain - Preliminary Sputum Sputum Culture - Preliminary Moraxella(branhamella) catarra Gram Neg Bacilli 11/16/17 06:45 Urine Culture - Final Urine,Catheterized Assessment and Plan Assessment: Impression: 1 acute hypoxic and hypercapnic respiratory failure requiring intubation and mechanical ventilation secondary to COPD, suspect underlying right upper lobe community-acquired pneumonia. 2 history of bronchogenic carcinoma, previous lobectomy followed by radiation and chemotherapy in the last few years. 3 acute community-acquired the right upper lobe pneumonia is strongly suspected. 4 history of coronary artery disease 5 history of fibromyalgia 6 history of benign essential hypertension 7 history of previous VT 8 history of seizure disorder, last seizure was in 2012. 9 history of GERD 10 history of migraine cephalgia. 11 history of irritable bowel syndrome with chronic diarrhea. And intermittent constipation. Recommendation: Continue present supportive care measures, continue mechanical ventilation, antibiotics, bronchodilators, steroids, nutritional support, GI and DVT prophylaxis, patient will be given lactulose and Dulcolax suppository for her chronic constipation, we'll continue enteral feeding, discussed her condition with family at bedside, clearly the patient is not quite ready to be extubated at this point, would like to see less endotracheal tube secretions before we start any weaning trials. Will continue daily interruption of sedation, and daily assessment. Prognosis remains guarded considering her underlying COPD and underlying bronchogenic carcinoma. Critical care time is 35 minutes. Time with Patient: Greater than 30
[2017-11-17] MEDS: hydrALAZINE HCL 20 MG/ML 1 ML VIAL IVP PRN (13:15)
--- NOTE | 2017-11-17 13:21 | P.PN ---
Subjective Remains intubated patient is found to have Moraxella catarrhalis in his sputum. Patient is having copious amount of sputum production because of which patient did undergo weaning trial today. Patient is on tidal volume of 400, PEEP of 5 FiO2 of 40% on propofol for sedation patient will be continued on levofloxacin other antibiotic will be discontinued. Objective - Vital Signs Vital signs: Vital Signs Temp 99.4 F 11/17/17 12:00 Pulse 87 11/17/17 13:00 Resp 28 H 11/17/17 13:00 BP 177/92 11/17/17 13:00 Pulse Ox 99 11/17/17 13:00 Intake & Output 11/16/17 11/17/17 11/17/17 18:59 06:59 18:59 Intake Total 2059.445 2600.6 1211.667 Output Total 665 900 554 Balance 138.823 4611.6 657.667 Weight 41.1 kg 39.2 kg Intake: IV 1350 1500 575 Sodium Chloride 0.9% 1, 1350 1500 575 000 ml @ 125 mls/hr IV . Q8H [facility] Rx#:[id number] Intake, IV Titration 119.770 161.6 314.667 Amount Aztreonam 1 gm In Sodium 50 Chloride 0.9% 50 ml @ 100 mls/hr IVPB Q8HR [facility] Rx# :[id number] Levofloxacin 750Mg-D5w 150 Pmx 750 mg In Dextrose/ Water 1 150ml.bag @ 100 mls/hr IVPB Q24H [facility] Rx#: [id number] Magnesium Sulfate-D5w Pmx 100 1 gm In Dextrose/Water 1 100ml.bag @ 100 mls/hr IVPB Q1H [facility] Rx#: [id number] Propofol 1,000 mg In 119.770 161.6 14.667 Empty Bag 1 bag @ Titrate IV .Q0M [facility] Rx#: [id number] Tube Feeding 20 322 192 Other 60 130 Output: Urine 665 900 554 Other: Voiding Method Incontinent Indwelling Catheter Indwelling Catheter - Exam PHYSICAL EXAMINATION: GENERAL: Intubated arousable, ventilator settings as mentioned above. HEENT: Pupils are round and equally reacting to light. EOMI. No scleral icterus. No conjunctival pallor. Normocephalic, atraumatic. No pharyngeal erythema. No thyromegaly. CARDIOVASCULAR: S1 and S2 present. No murmurs, rubs, or gallops. PULMONARY: Decreased air entry with expiratory wheezing ABDOMEN: Soft, nontender, nondistended, normoactive bowel sounds. No palpable organomegaly. MUSCULOSKELETAL: No joint swelling or deformity. EXTREMITIES: No cyanosis, clubbing, or pedal edema. NEUROLOGICAL: Moving all 4 limbs SKIN: No rashes. - Labs CBC & Chem 7: 11/17/17 04:32 11/17/17 04:32 Labs: Abnormal Lab Results - Last 24 Hours (Table) 11/16/17 11/17/17 11/17/17 Range/Units 17:31 01:53 04:32 RBC 3.30 L (3.80-5.40) m/uL Hgb 9.9 L (11.4-16.0) gm/dL Hct 31.2 L (34.0-46.0) % Lymphocytes # 0.3 L (1.0-4.8) k/uL ABG pH (7.35-7.45) ABG HCO3 (21-25) mmol/L ABG Total CO2 (19-24) mmol/L ABG O2 Saturation (94-97) % Creatinine (0.52-1.04) mg/dL Glucose (74-99) mg/dL POC Glucose (mg/dL) 109 H 149 H (75-99) mg/dL AST (14-36) U/L Total Protein (6.3-8.2) g/dL Albumin (3.5-5.0) g/dL 11/17/17 11/17/17 11/17/17 Range/Units 04:32 05:36 08:20 RBC (3.80-5.40) m/uL Hgb (11.4-16.0) gm/dL Hct (34.0-46.0) % Lymphocytes # (1.0-4.8) k/uL ABG pH 7.46 H (7.35-7.45) ABG HCO3 32 H (21-25) mmol/L ABG Total CO2 33 H (19-24) mmol/L ABG O2 Saturation 97.7 H (94-97) % Creatinine 0.40 L (0.52-1.04) mg/dL Glucose 150 H (74-99) mg/dL POC Glucose (mg/dL) 139 H (75-99) mg/dL AST 11 L (14-36) U/L Total Protein 5.2 L (6.3-8.2) g/dL Albumin 2.7 L (3.5-5.0) g/dL 11/17/17 Range/Units 12:05 RBC (3.80-5.40) m/uL Hgb (11.4-16.0) gm/dL Hct (34.0-46.0) % Lymphocytes # (1.0-4.8) k/uL ABG pH (7.35-7.45) ABG HCO3 (21-25) mmol/L ABG Total CO2 (19-24) mmol/L ABG O2 Saturation (94-97) % Creatinine (0.52-1.04) mg/dL Glucose (74-99) mg/dL POC Glucose (mg/dL) 110 H (75-99) mg/dL AST (14-36) U/L Total Protein (6.3-8.2) g/dL Albumin (3.5-5.0) g/dL Microbiology - Last 24 Hours (Table) 11/16/17 03:24 Gram Stain - Preliminary Sputum Sputum Culture - Preliminary Moraxella(branhamella) catarra Gram Neg Bacilli 11/16/17 06:45 Urine Culture - Final Urine,Catheterized Assessment and Plan Plan: -Acute hypercapnic respiratory failure: Secondary to COPD exacerbation patient is ventilator dependent at this point of time. Doing clinically well can you assist with strides and medics as mentioned above. She doesn't use oxygen at home. -right upper lobe pneumonia Moroxiella catarrhalis, community-acquired patient will be continued on levofloxacin -Mild protein Malnutrition: From chronic smoking. Carotid artery disease -Hyperlipidemia -hypertension -Gases patient is reflux disease for rest of the above-mentioned chronic medical problems patient will be resumed on appropriate home medications.
[2017-11-17 20:10] LABS: Glucose,Whole Blood 119 mg/dL (75-99)
[2017-11-18] MEDS: DEXAMETHASONE SOD PHOSPHATE 4 MG/ML 1 ML VIAL IV SCH ×4 (00:13→18:03)
[2017-11-18] MEDS: LORazepam 2 MG/ML INJ IV PRN ×3 (02:55→22:14)
[2017-11-18] MEDS: hydrALAZINE HCL 20 MG/ML 1 ML VIAL IVP PRN ×3 (03:08→18:01)
[2017-11-18 04:26] LABS: Basophils % (A) 0 %; Eosinophils % (A) 0 %; HCT 30.4 % (34.0-46.0); Hypochromasia Slight; Lymphocytes # (A) 0.3 k/uL (1.0-4.8); Lymphocytes % (A) 4 %; MCH 30.6 pg (25.0-35.0); MCHC 32.9 g/dL (31.0-37.0); MCV 93.1 fL (80.0-100.0); Mean Platelet Volume 7.9; Monocytes # (A) 0.3 k/uL (0-1.0); Monocytes % (A) 4 %; Neutrophils % (A) 91 %; Platelet Count 190 k/uL (150-450); RBC 3.27 m/uL (3.80-5.40); RDW 15.4 % (11.5-15.5); WBC 7.7 k/uL (3.8-10.6)
[2017-11-18 04:41] LABS: Anion Gap 8 mmol/L; Blood Urea Nitrogen 17 mg/dL (7-17); Carbon Dioxide 29 mmol/L (22-30); Chloride 105 mmol/L (98-107); Glucose 124 mg/dL (74-99); Phosphorus 4.4 mg/dL (2.5-4.5); Potassium 4.1 mmol/L (3.5-5.1); Sodium 142 mmol/L (137-145)
[2017-11-18] MEDS: SODIUM CHLORIDE 0.9% 1,000 ML IV SCH (06:20)
[2017-11-18] MEDS: LEVOFLOXACIN 750MG-D5W PMX 750 MG in DEXTROSE/WATER 1 150ML.BAG IVPB SCH (06:20)
--- NOTE | 2017-11-18 06:33 | XR ---
EXAMINATION TYPE: XR chest 1V DATE OF EXAM: 11/18/2017 HISTORY: intubated. REFERENCE: Previous study dated 11/17/2017. FINDINGS: There has been a previous ACDF. There is a MediPort in place on the left. Its tip is in the superior vena cava. The patient is ET tube and NG tube remain in place, unchanged in appearance. The lungs are overinflated. There are coarse interstitial changes. The heart is upper limits of normal i n size. There is blunting of the right CP angle. IMPRESSION: 1. COPD. 2. COARSENED INTERSTITIUM. PART OF THIS APPEARS CHRONIC. IT WOULD BE DIFFICULT TO EXCLUDE SOME SUPERI MPOSED EDEMA. 3. I CANNOT EXCLUDE A SMALL RIGHT EFFUSION.
[2017-11-18] MEDS: IPRATROPIUM-ALBUTEROL 3 ML NEB INHALATION SCH ×4 (07:33→20:08)
[2017-11-18 07:42] LABS: ABG Base Excess 6.6 mmol/L; ABG HCO3 30 mmol/L (21-25); ABG Oxygen Saturation 98.8 % (94-97); ABG PCO2 42 mmHg (35-45); ABG PH 7.46 (7.35-7.45); ABG PO2 107 mmHg (83-108); ABG TCO2 32 mmol/L (19-24)
[2017-11-18 07:44] LABS: Glucose,Whole Blood 122 mg/dL (75-99)
[2017-11-18] MEDS: CHLORHEXIDINE GLUCONATE 15 ML CUP MUCOUS MEM SCH (08:02)
[2017-11-18] MEDS: ENOXAPARIN 40 MG/0.4 ML SYRINGE SQ SCH (08:02)
[2017-11-18] MEDS: ISOSORBIDE DINITRATE 10 MG TAB PO SCH ×3 (08:02→21:40)
[2017-11-18] MEDS: ATENOLOL 25 MG TAB PO SCH ×2 (08:02→20:43)
[2017-11-18] MEDS: LACTULOSE 20 GM/30 ML CUP PO SCH ×2 (08:02→20:43)
[2017-11-18] MEDS: lamoTRIgine 100 MG TAB PO SCH (08:03)
[2017-11-18] MEDS: PANTOPRAZOLE 40 MG/10 ML VIAL IV SCH (08:20)
[2017-11-18] MEDS: PROPOFOL 1,000 MG in EMPTY BAG 1 BAG IV SCH (08:39)
--- NOTE | 2017-11-18 10:48 | P.PN ---
Subjective Progress Note Date: 11/18/17 Principal diagnosis: Acute hypoxic and hypercapnic respiratory failure secondary to COPD and right upper lobe community-acquired pneumonia. This is a 57-year-old female with history of severe underlying COPD, patient is O2 dependent, but not prednisone dependent. Known history of lung cancer and previous lobectomy followed by chemotherapy and radiation therapy done in [facility]. Patient never seen a digital retoucher, has been followed mostly by her oncologist all along. She is also followed by her primary care physician Dr. Nguyen. On Monday, the patient presented to [facility] complaining of shortness of breath and cough, some workup was done according to the family including a CT of the chest, patient was discharged home and advised to follow-up with her primary care physician. She was told that the workup did not show any significant abnormalities. However she was reevaluated again in the ER complaining of worsening shortness of breath cough and wheezing. Apparently she was in severe respiratory distress and she was intubated. Transferred to [facility], admitted to the ICU, and I was asked to see her on consultation. Patient was felt to have severe hypoxic and hypercapnic respiratory failure requiring intubation and mechanical ventilation. Chest x-ray showed adequate placement of the endotracheal tube, it also showed some mild interstitial prominence in the perihilar and suprahilar regions and a minimal focal opacity noted in the right upper lobe. This is a new finding compared to chest x-ray from December of 2015. Patient was placed on bronchodilators, antibiotics, steroids, and she was also placed on GI and DVT prophylaxis/vent bundle. Patient is sedated, on propofol, however I was able to obtain adequate history from family members at bedside. Reevaluated today on 11/17/2017, patient remains on mechanical ventilation, same vent settings, no evidence of receiving pink, and her plateau pressures are in the teens. ABG showed a pO2 of 102 pCO2 of 45 pH of 7.46. Patient remains on propofol, and at times was given Ativan for sedation and for significantly elevated blood pressure she is also on Apresoline as needed for high blood pressure. Patient continues to have significant amount of secretions via the endotracheal tube, hence no plans to wean and extubate today. Patient has been appropriate as far as the mental status is concerned, I lower dose of sedation she seems to follow all instructions. Her CBC is relatively normal except for hemoglobin of 9.9. Electrolytes and basic metabolic profile are normal. ABG showed a pO2 of 102 pCO2 of 45 pH of 7.46. Reflecting mostly a picture of metabolic alkalosis. And adequate respiratory compensation. Chest x-ray showed mild improvement, however the right hilum does appear a bit prominent. Reevaluated today on 11/18/2017, patient remains on mechanical ventilation, same vent settings on assist control mode of mechanical ventilation. ABG showed a pO2 of 107 pCO2 of 42 pH of 7.46. Rest of the labs were noted to be unremarkable. Normal CBC except for hemoglobin of 10 normal basic metabolic profile, normal renal profile. Objective - Vital Signs Vital signs: Vital Signs Temp 98.9 F 11/18/17 08:00 Pulse 84 11/18/17 10:00 Resp 21 11/18/17 10:00 BP 163/82 11/18/17 10:00 Pulse Ox 99 11/18/17 10:00 Intake & Output 11/17/17 11/18/17 11/18/17 18:59 06:59 18:59 Intake Total 6636.922 5855 602.578 Output Total 1054 1140 175 Balance 806.667 869 427.578 Weight 39.2 kg 39.2 kg Intake: IV 1200 1625 300 Sodium Chloride 0.9% 1, 1200 1625 300 000 ml @ 125 mls/hr IV . Q8H [facility] Rx#:[id number] Intake, IV Titration 314.667 260.578 Amount Aztreonam 1 gm In Sodium 50 Chloride 0.9% 50 ml @ 100 mls/hr IVPB Q8HR [facility] Rx# :[id number] Levofloxacin 750Mg-D5w 150 150 Pmx 750 mg In Dextrose/ Water 1 150ml.bag @ 100 mls/hr IVPB Q24H [facility] Rx#: [id number] Magnesium Sulfate-D5w Pmx 100 1 gm In Dextrose/Water 1 100ml.bag @ 100 mls/hr IVPB Q1H [facility] Rx#: [id number] Propofol 1,000 mg In 14.667 110.578 Empty Bag 1 bag @ Titrate IV .Q0M [facility] Rx#: [id number] Tube Feeding 216 384 12 Other 130 30 Output: Urine 1054 1140 175 Other: Voiding Method Indwelling Catheter Indwelling Catheter Indwelling Catheter # Bowel Movements 1 1 - Exam Physical Exam: Revealed a 57-year-old female, intubated, on mechanical ventilation. Patient looks cachectic, and chronically ill, frail. On mechanical ventilation. Head: Atraumatic, normocephalic, Eyes: PERRLA, EOMI, no icterus. HEENT: Dry mucous membranes. [Neck is supple.] [No neck masses.] [No thyromegaly.] [No JVD.] Endotracheal tube seems to be intact. Chest: [Diminished breath sounds at the bases, some wheezing bilaterally, no chest wall tenderness, symmetrical expansion noted. Cardiac Exam: [Normal S1 and S2, no S3 gallop, no murmur.] Abdomen: [Soft, nontender, no megaly, no rebound, no guarding, normal bowel sounds.] Extremities: [No clubbing, no edema, no cyanosis.] Neurological Exam: Arousable, follows simple instructions, off propofol Psychiatric: Could not be assessed while on mechanical ventilation. Musculoskeletal: Normal range of motion, no focal deficit noted, no deformities. - Labs CBC & Chem 7: 11/18/17 03:58 11/18/17 03:58 Labs: Abnormal Lab Results - Last 24 Hours (Table) 11/17/17 11/17/17 11/18/17 Range/Units 12:05 20:08 03:58 RBC 3.27 L (3.80-5.40) m/uL Hgb 10.0 L (11.4-16.0) gm/dL Hct 30.4 L (34.0-46.0) % Lymphocytes # 0.3 L (1.0-4.8) k/uL ABG pH (7.35-7.45) ABG HCO3 (21-25) mmol/L ABG Total CO2 (19-24) mmol/L ABG O2 Saturation (94-97) % Creatinine (0.52-1.04) mg/dL Glucose (74-99) mg/dL POC Glucose (mg/dL) 110 H 119 H (75-99) mg/dL 11/18/17 11/18/17 11/18/17 Range/Units 03:58 07:39 07:41 RBC (3.80-5.40) m/uL Hgb (11.4-16.0) gm/dL Hct (34.0-46.0) % Lymphocytes # (1.0-4.8) k/uL ABG pH 7.46 H (7.35-7.45) ABG HCO3 30 H (21-25) mmol/L ABG Total CO2 32 H (19-24) mmol/L ABG O2 Saturation 98.8 H (94-97) % Creatinine 0.40 L (0.52-1.04) mg/dL Glucose 124 H (74-99) mg/dL POC Glucose (mg/dL) 122 H (75-99) mg/dL Microbiology - Last 24 Hours (Table) 11/16/17 03:24 Gram Stain - Preliminary Sputum Sputum Culture - Preliminary Moraxella(branhamella) catarra Gram Neg Bacilli 11/16/17 06:45 Urine Culture - Final Urine,Catheterized Assessment and Plan Assessment: Impression: 1 acute hypoxic and hypercapnic respiratory failure requiring intubation and mechanical ventilation secondary to COPD, suspect underlying right upper lobe community-acquired pneumonia. 2 history of bronchogenic carcinoma, previous lobectomy followed by radiation and chemotherapy in the last few years. 3 acute community-acquired the right upper lobe pneumonia is strongly suspected. 4 history of coronary artery disease 5 history of fibromyalgia 6 history of benign essential hypertension 7 history of previous OR 8 history of seizure disorder, last seizure was in 2012. 9 history of GERD 10 history of migraine cephalgia. 11 history of irritable bowel syndrome with chronic diarrhea. And intermittent constipation. Recommendation: Patient will be given a trial of pressure support and CPAP, will check weaning parameters, and if they are both reasonable, we'll proceed with extubating the patient. Discussed her condition with all her family members at bedside. And I will likely proceed to extubating the patient today. Postextubation the patient will be kept on oxygen, antibiotics, bronchodilators, steroids, and will adjust diet accordingly. We'll continue GI and DVT prophylaxis. And continue antibiotics. Critical care time is 40 minutes. Time with Patient: Greater than 30
[2017-11-18] MEDS: HYDROcodone/APAP 10-325MG 1 EACH TAB PO PRN ×2 (12:23→19:45)
--- NOTE | 2017-11-18 12:50 | P.PN ---
Subjective Remains intubated patient is found to have Moraxella catarrhalis in his sputum. Patient is having copious amount of sputum production because of which patient did undergo weaning trial today. Patient is on tidal volume of 400, PEEP of 5 FiO2 of 40% on propofol for sedation patient will be continued on levofloxacin other antibiotic will be discontinued. 11/18/2017 Patient is expected clinical doing well wanted to be discharged patient has pseudomonas as well as the Moraxella, sensitive to levofloxacin which will be continued. Patient wanted to go home. She is presently on 4 L fogs and which we're tapering down.Constitutional: Denied any fatigue denied any fever. Cardio vascular: denied any chest pain, palpitations Gastrointestinal denied any nausea vomiting Pulmonary: Denied any shortness of breath cough Neurologic denied any new focal deficits Objective - Vital Signs Vital signs: Vital Signs Temp 98.1 F 11/18/17 12:00 Pulse 94 11/18/17 12:00 Resp 16 11/18/17 12:00 BP 177/82 11/18/17 12:00 Pulse Ox 96 11/18/17 12:00 Intake & Output 11/17/17 11/18/17 11/18/17 18:59 06:59 18:59 Intake Total 0471.061 3867 852.578 Output Total 1054 1140 950 Balance 806.667 869 -97.422 Weight 39.2 kg 41.5 kg Intake: IV 1200 1625 550 Sodium Chloride 0.9% 1, 1200 1625 550 000 ml @ 125 mls/hr IV . Q8H [facility] Rx#:[id number] Intake, IV Titration 314.667 260.578 Amount Aztreonam 1 gm In Sodium 50 Chloride 0.9% 50 ml @ 100 mls/hr IVPB Q8HR [facility] Rx# :[id number] Levofloxacin 750Mg-D5w 150 150 Pmx 750 mg In Dextrose/ Water 1 150ml.bag @ 100 mls/hr IVPB Q24H [facility] Rx#: [id number] Magnesium Sulfate-D5w Pmx 100 1 gm In Dextrose/Water 1 100ml.bag @ 100 mls/hr IVPB Q1H [facility] Rx#: [id number] Propofol 1,000 mg In 14.667 110.578 Empty Bag 1 bag @ Titrate IV .Q0M [facility] Rx#: [id number] Tube Feeding 216 384 12 Other 130 30 Output: Urine 1054 1140 950 Other: Voiding Method Indwelling Catheter Indwelling Catheter Indwelling Catheter # Bowel Movements 1 1 - Exam PHYSICAL EXAMINATION: GENERAL: The patient is alert and oriented x3, not in any acute distress. Thin built HEENT: Pupils are round and equally reacting to light. EOMI. No scleral icterus. No conjunctival pallor. Normocephalic, atraumatic. No pharyngeal erythema. No thyromegaly. CARDIOVASCULAR: S1 and S2 present. No murmurs, rubs, or gallops. PULMONARY: Chest is clear to auscultation, no wheezing or crackles. ABDOMEN: Soft, nontender, nondistended, normoactive bowel sounds. No palpable organomegaly. MUSCULOSKELETAL: No joint swelling or deformity. EXTREMITIES: No cyanosis, clubbing, or pedal edema. NEUROLOGICAL: Gross neurological examination did not reveal any focal deficits. SKIN: No rashes. - Labs CBC & Chem 7: 11/18/17 03:58 11/18/17 03:58 Labs: Abnormal Lab Results - Last 24 Hours (Table) 11/17/17 11/18/17 11/18/17 Range/Units 20:08 03:58 03:58 RBC 3.27 L (3.80-5.40) m/uL Hgb 10.0 L (11.4-16.0) gm/dL Hct 30.4 L (34.0-46.0) % Lymphocytes # 0.3 L (1.0-4.8) k/uL ABG pH (7.35-7.45) ABG HCO3 (21-25) mmol/L ABG Total CO2 (19-24) mmol/L ABG O2 Saturation (94-97) % Creatinine 0.40 L (0.52-1.04) mg/dL Glucose 124 H (74-99) mg/dL POC Glucose (mg/dL) 119 H (75-99) mg/dL 11/18/17 11/18/17 Range/Units 07:39 07:41 RBC (3.80-5.40) m/uL Hgb (11.4-16.0) gm/dL Hct (34.0-46.0) % Lymphocytes # (1.0-4.8) k/uL ABG pH 7.46 H (7.35-7.45) ABG HCO3 30 H (21-25) mmol/L ABG Total CO2 32 H (19-24) mmol/L ABG O2 Saturation 98.8 H (94-97) % Creatinine (0.52-1.04) mg/dL Glucose (74-99) mg/dL POC Glucose (mg/dL) 122 H (75-99) mg/dL Microbiology - Last 24 Hours (Table) 11/16/17 03:24 Gram Stain - Final Sputum Sputum Culture - Final Moraxella(branhamella) catarra Pseudomonas aeruginosa 11/16/17 06:45 Urine Culture - Final Urine,Catheterized Assessment and Plan Plan: -Acute hypercapnic respiratory failure: Secondary to COPD exacerbation patient is ventilator dependent at this point of time. Patient is extubated clinically doing well -right upper lobe pneumonia Moroxiella catarrhalis, and a pseudomonal pneumonia community-acquired patient will be continued on levofloxacin -Mild protein calorie Malnutrition: From chronic smoking. Carotid artery disease -Hyperlipidemia -hypertension -Gases patient is reflux disease for rest of the above-mentioned chronic medical problems patient will be resumed on appropriate home medications.
[2017-11-18 13:10] LABS: Glucose,Whole Blood 93 mg/dL (75-99)
[2017-11-18] MEDS ORDERED: CEFEPIME 1 GM in SODIUM CHLORIDE 0.9% 50 ML IVPB SCH (16:00)
[2017-11-18] MEDS: amLODIPine 5 MG TAB PO SCH (20:43)
[2017-11-18] MEDS ORDERED: amLODIPine 5 MG TAB PO SCH (21:00)
[2017-11-18] MEDS: NICOTINE 21MG/24HR PATCH TRANSDERM SCH (21:39)
[2017-11-18 21:46] LABS: Glucose,Whole Blood 150 mg/dL (75-99)
[2017-11-19] MEDS: DEXAMETHASONE SOD PHOSPHATE 4 MG/ML 1 ML VIAL IV SCH ×3 (00:41→15:42)
[2017-11-19] MEDS: hydrALAZINE HCL 20 MG/ML 1 ML VIAL IVP PRN ×3 (00:41→21:48)
[2017-11-19] MEDS: LORazepam 2 MG/ML INJ IV PRN (00:42)
[2017-11-19] MEDS: HYDROcodone/APAP 10-325MG 1 EACH TAB PO PRN ×4 (01:27→22:27)
[2017-11-19 05:08] LABS: Basophils % (A) 0 %; Eosinophils # (A) 0.1 k/uL (0-0.7); Eosinophils % (A) 1 %; HCT 38.8 % (34.0-46.0); HGB 12.2 gm/dL (11.4-16.0); Hypochromasia Slight; Lymphocytes # (A) 0.4 k/uL (1.0-4.8); Lymphocytes % (A) 4 %; MCH 29.4 pg (25.0-35.0); MCHC 31.5 g/dL (31.0-37.0); MCV 93.5 fL (80.0-100.0); Mean Platelet Volume 9.7; Monocytes # (A) 0.3 k/uL (0-1.0); Monocytes % (A) 2 %; Neutrophils # (A) 10.3 k/uL (1.3-7.7); Neutrophils % (A) 93 %; Platelet Count 274 k/uL (150-450); RBC 4.16 m/uL (3.80-5.40); RDW 15.4 % (11.5-15.5); WBC 11.1 k/uL (3.8-10.6)
[2017-11-19 05:38] LABS: Anion Gap 13 mmol/L; Blood Urea Nitrogen 11 mg/dL (7-17); Calcium 9.3 mg/dL (8.4-10.2); Carbon Dioxide 31 mmol/L (22-30); Chloride 98 mmol/L (98-107); Glucose 146 mg/dL (74-99); Magnesium 1.7 mg/dL (1.6-2.3); Phosphorus 3.6 mg/dL (2.5-4.5); Potassium 3.9 mmol/L (3.5-5.1); Sodium 142 mmol/L (137-145)
--- NOTE | 2017-11-19 06:42 | XR ---
EXAMINATION TYPE: XR chest 1V DATE OF EXAM: 11/19/2017 HISTORY: intubated. REFERENCE: Previous study dated 11/18/2017. FINDINGS: There has been a previous ACDF of the lower cervical spine. The patient is ET tube and NG tube have been removed. There is a Mediport in place on the left. Its t ip is in the superior vena cava. The lungs are overinflated. There is chronic tenting of the right hemidiaphragm. Lungs otherwise rosalba r. Pleural space are clear. The heart is not enlarged. IMPRESSION: COPD.
[2017-11-19] MEDS: MAGNESIUM SULFATE-D5W PMX 1 GM in DEXTROSE/WATER 1 100ML.BAG IVPB SCH ×2 (06:54→08:18)
[2017-11-19] MEDS ORDERED: POTASSIUM CHLORIDE ER 20 MEQ TAB.ER PO SCH (07:00)
[2017-11-19 07:27] LABS: Glucose,Whole Blood 132 mg/dL (75-99)
[2017-11-19] MEDS: LEVOFLOXACIN 750MG-D5W PMX 750 MG in DEXTROSE/WATER 1 150ML.BAG IVPB SCH (07:51)
[2017-11-19] MEDS: SODIUM CHLORIDE 0.9% 1,000 ML IV SCH (07:53)
[2017-11-19] MEDS: amLODIPine 5 MG TAB PO SCH ×2 (08:18→20:49)
[2017-11-19] MEDS: NICOTINE 21MG/24HR PATCH TRANSDERM SCH (08:21)
[2017-11-19] MEDS: PANTOPRAZOLE 40 MG/10 ML VIAL IV SCH (08:21)
[2017-11-19] MEDS: LACTULOSE 20 GM/30 ML CUP PO SCH ×2 (08:22→09:03)
[2017-11-19] MEDS: ENOXAPARIN 40 MG/0.4 ML SYRINGE SQ SCH (08:22)
[2017-11-19] MEDS: ATENOLOL 25 MG TAB PO SCH ×2 (08:22→20:49)
[2017-11-19] MEDS: ISOSORBIDE DINITRATE 10 MG TAB PO SCH ×3 (08:24→21:49)
[2017-11-19] MEDS: lamoTRIgine 100 MG TAB PO SCH (08:24)
[2017-11-19] MEDS: IPRATROPIUM-ALBUTEROL 3 ML NEB INHALATION SCH ×4 (08:45→20:32)
[2017-11-19] MEDS ORDERED: LORazepam 0.5 MG TAB PO SCH ×2 (09:00→21:00)
[2017-11-19] MEDS ORDERED: cloNIDine HCL 0.1 MG TAB PO SCH (09:00)
[2017-11-19] MEDS ORDERED: amLODIPine 5 MG TAB PO SCH (09:00)
[2017-11-19 12:07] LABS: Glucose,Whole Blood 482 mg/dL (75-99)
[2017-11-19 12:24] LABS: Glucose,Whole Blood 133 mg/dL (75-99)
[2017-11-19 12:24] LABS: Glucose,Whole Blood 136 mg/dL (75-99)
--- NOTE | 2017-11-19 12:24 | P.PN ---
Subjective Progress Note Date: 11/19/17 Principal diagnosis: Acute hypoxic and hypercapnic respiratory failure secondary to COPD and right upper lobe community-acquired pneumonia. This is a 57-year-old female with history of severe underlying COPD, patient is O2 dependent, but not prednisone dependent. Known history of lung cancer and previous lobectomy followed by chemotherapy and radiation therapy done in [facility]. Patient never seen a supply chain generalist, has been followed mostly by her oncologist all along. She is also followed by her primary care physician Dr. Nguyen. On Monday, the patient presented to [place] ER complaining of shortness of breath and cough, some workup was done according to the family including a CT of the chest, patient was discharged home and advised to follow-up with her primary care physician. She was told that the workup did not show any significant abnormalities. However she was reevaluated again in the ER complaining of worsening shortness of breath cough and wheezing. Apparently she was in severe respiratory distress and she was intubated. Transferred to [facility], admitted to the ICU, and I was asked to see her on consultation. Patient was felt to have severe hypoxic and hypercapnic respiratory failure requiring intubation and mechanical ventilation. Chest x-ray showed adequate placement of the endotracheal tube, it also showed some mild interstitial prominence in the perihilar and suprahilar regions and a minimal focal opacity noted in the right upper lobe. This is a new finding compared to chest x-ray from December of 2015. Patient was placed on bronchodilators, antibiotics, steroids, and she was also placed on GI and DVT prophylaxis/vent bundle. Patient is sedated, on propofol, however I was able to obtain adequate history from family members at bedside. Reevaluated today on 11/17/2017, patient remains on mechanical ventilation, same vent settings, no evidence of receiving pink, and her plateau pressures are in the teens. ABG showed a pO2 of 102 pCO2 of 45 pH of 7.46. Patient remains on propofol, and at times was given Ativan for sedation and for significantly elevated blood pressure she is also on Apresoline as needed for high blood pressure. Patient continues to have significant amount of secretions via the endotracheal tube, hence no plans to wean and extubate today. Patient has been appropriate as far as the mental status is concerned, I lower dose of sedation she seems to follow all instructions. Her CBC is relatively normal except for hemoglobin of 9.9. Electrolytes and basic metabolic profile are normal. ABG showed a pO2 of 102 pCO2 of 45 pH of 7.46. Reflecting mostly a picture of metabolic alkalosis. And adequate respiratory compensation. Chest x-ray showed mild improvement, however the right hilum does appear a bit prominent. Reevaluated today on 11/18/2017, patient remains on mechanical ventilation, same vent settings on assist control mode of mechanical ventilation. ABG showed a pO2 of 107 pCO2 of 42 pH of 7.46. Rest of the labs were noted to be unremarkable. Normal CBC except for hemoglobin of 10 normal basic metabolic profile, normal renal profile. Reevaluated today on 11/19/2017, patient was extubated yesterday, tolerated the extubation quite well. Overnight we had some issues with her elevated blood pressure, however now she is on atenolol, Norvasc, and clonidine. She is also on her usual dose of Ativan, seems to be working quite well. No cough, she continues to have intermittent wheezing, no fever no chills no hemoptysis and no chest pain.labs from today were unremarkable including CBC and basic metabolic profile.chest x-ray showed improvement, there is hyperinflation, no evidence of infiltrate at present, and there is chronic deformity of the right hemidiaphragm. Objective - Vital Signs Vital signs: Vital Signs Temp 97.7 F 11/19/17 12:00 Pulse 83 11/19/17 12:00 Resp 16 11/19/17 12:00 BP 115/66 11/19/17 12:00 Pulse Ox 98 11/19/17 12:00 Intake & Output 11/18/17 11/19/17 11/19/17 18:59 06:59 18:59 Intake Total 1287.578 840 430 Output Total 2024 2400 1100 Balance -737.422 -1560 -670 Weight 41.5 kg 39.4 kg 39.4 kg Intake: IV 985 240 80 Sodium Chloride 0.9% 1, 985 240 80 000 ml @ 20 mls/hr IV . Q24H [facility] Rx#:[id number] Intake, IV Titration 260.578 350 Amount Levofloxacin 750Mg-D5w 150 Pmx 750 mg In Dextrose/ Water 1 150ml.bag @ 100 mls/hr IVPB Q24H [facility] Rx#: [id number] Levofloxacin 750Mg-D5w 150 Pmx 750 mg In Dextrose/ Water 1 150ml.bag @ 100 mls/hr IVPB Q24H [facility] Rx#: [id number] Magnesium Sulfate-D5w Pmx 200 1 gm In Dextrose/Water 1 100ml.bag @ 100 mls/hr IVPB Q1H [facility] Rx#: [id number] Propofol 1,000 mg In 110.578 Empty Bag 1 bag @ Titrate IV .Q0M [facility] Rx#: [id number] Oral 600 Tube Feeding 12 Other 30 Output: Urine 5 2400 1100 Other: Voiding Method Indwelling Catheter Indwelling Catheter Indwelling Catheter # Bowel Movements 1 1 - Exam Physical Exam: Revealed a 57-year-old female, sitting in chair, on 3liters oxygen via nasal cannula, in no distress. Head: Atraumatic, normocephalic, Eyes: PERRLA, EOMI, no icterus. HEENT: Dry mucous membranes. [Neck is supple.] [No neck masses.] [No thyromegaly.] [No JVD.] Chest: [Diminished breath sounds at the bases, some wheezing bilaterally, no chest wall tenderness, symmetrical expansion noted. Cardiac Exam: [Normal S1 and S2, no S3 gallop, no murmur.] Abdomen: [Soft, nontender, no megaly, no rebound, no guarding, normal bowel sounds.] Extremities: [No clubbing, no edema, no cyanosis.] Neurological Exam: alert oriented 3, no gross focal neurologic deficit. Psychiatric: normal mood affect and normal mental status examination.. Musculoskeletal: Normal range of motion, no focal deficit noted, no deformities. - Labs CBC & Chem 7: 11/19/17 04:12 11/19/17 04:12 Labs: Abnormal Lab Results - Last 24 Hours (Table) 11/18/17 11/19/17 11/19/17 Range/Units 21:45 04:12 04:12 WBC 11.1 H (3.8-10.6) k/uL Neutrophils # 10.3 H (1.3-7.7) k/uL Lymphocytes # 0.4 L (1.0-4.8) k/uL Carbon Dioxide 31 H (22-30) mmol/L Creatinine 0.40 L (0.52-1.04) mg/dL Glucose 146 H (74-99) mg/dL POC Glucose (mg/dL) 150 H (75-99) mg/dL 11/19/17 11/19/17 Range/Units 07:26 12:06 WBC (3.8-10.6) k/uL Neutrophils # (1.3-7.7) k/uL Lymphocytes # (1.0-4.8) k/uL Carbon Dioxide (22-30) mmol/L Creatinine (0.52-1.04) mg/dL Glucose (74-99) mg/dL POC Glucose (mg/dL) 132 H 482 H (75-99) mg/dL Microbiology - Last 24 Hours (Table) 11/16/17 03:24 Gram Stain - Final Sputum Sputum Culture - Final Moraxella(branhamella) catarra Pseudomonas aeruginosa Assessment and Plan Assessment: Impression: 1 acute hypoxic and hypercapnic respiratory failure requiring intubation and mechanical ventilation secondary to COPD, suspect underlying right upper lobe community-acquired pneumonia.patient was extubated on 11/18/2017, tolerated the extubation quite well so far. 2 history of bronchogenic carcinoma, previous lobectomy followed by radiation and chemotherapy in the last few years. 3 acute community-acquired the right upper lobe pneumonia is strongly suspected.significantly improved on follow-up chest x-ray today. Patient remains on antibiotics. 4 history of coronary artery disease 5 history of fibromyalgia 6 history of benign essential hypertension 7 history of previous [place] 8 history of seizure disorder, last seizure was in 2012. 9 history of GERD 10 history of migraine cephalgia. 11 history of irritable bowel syndrome with chronic diarrhea. And intermittent constipation.patient responded well to lactulose Recommendation:continue present supportive care measures including bronchodilators, antibiotics, steroids, her dose of Decadron will be decreased, and will taper it further down in the next couple of days, patient will remain in the ICU today, and possible transfer to a medical floor in the next 24 hours. Time with Patient: Less than 30
[2017-11-19] MEDS: LORazepam 0.5 MG TAB PO PRN ×2 (15:17→22:27)
[2017-11-19] MEDS ORDERED: HYDROcodone/APAP 10-325MG 1 EACH TAB PO SCH (16:00)
[2017-11-19 16:55] LABS: Glucose,Whole Blood 99 mg/dL (75-99)
[2017-11-19] MEDS ORDERED: MIDODRINE 5 MG TAB PO SCH (17:30)
[2017-11-19] MEDS: cloNIDine HCL 0.1 MG TAB PO SCH (21:48)
[2017-11-19] MEDS: MAG HYDROX/AL HYDROX/SIMETH 30 ML CUP PO PRN (22:28)
[2017-11-19] MEDS: RANOLAZINE 500 MG TAB.ER.12H PO SCH (22:45)
[2017-11-20] MEDS: DEXAMETHASONE SOD PHOSPHATE 4 MG/ML 1 ML VIAL IV SCH ×4 (00:09→23:39)
[2017-11-20 00:15] LABS: Glucose,Whole Blood 141 mg/dL (75-99)
[2017-11-20] MEDS: MAG HYDROX/AL HYDROX/SIMETH 30 ML CUP PO PRN ×3 (02:04→14:19)
[2017-11-20] MEDS: HYDROcodone/APAP 10-325MG 1 EACH TAB PO PRN ×3 (04:18→19:11)
[2017-11-20] MEDS: hydrALAZINE HCL 20 MG/ML 1 ML VIAL IVP PRN (04:19)
[2017-11-20 04:41] LABS: Basophils % (A) 0 %; Eosinophils # (A) 0.1 k/uL (0-0.7); Eosinophils % (A) 1 %; HCT 38.1 % (34.0-46.0); HGB 12.5 gm/dL (11.4-16.0); Lymphocytes # (A) 0.6 k/uL (1.0-4.8); Lymphocytes % (A) 6 %; MCH 30.3 pg (25.0-35.0); MCHC 32.9 g/dL (31.0-37.0); Mean Platelet Volume 8.8; Monocytes # (A) 0.3 k/uL (0-1.0); Monocytes % (A) 3 %; Neutrophils # (A) 9.2 k/uL (1.3-7.7); Neutrophils % (A) 90 %; Platelet Count 256 k/uL (150-450); RBC 4.14 m/uL (3.80-5.40); RDW 15.1 % (11.5-15.5); WBC 10.2 k/uL (3.8-10.6)
[2017-11-20 04:55] LABS: Anion Gap 11 mmol/L; Blood Urea Nitrogen 13 mg/dL (7-17); Calcium 9.7 mg/dL (8.4-10.2); Carbon Dioxide 33 mmol/L (22-30); Chloride 95 mmol/L (98-107); Glucose 132 mg/dL (74-99); Magnesium 2.1 mg/dL (1.6-2.3); Phosphorus 4.3 mg/dL (2.5-4.5); Potassium 4.2 mmol/L (3.5-5.1); Sodium 139 mmol/L (137-145)
[2017-11-20] MEDS: LEVOFLOXACIN 750MG-D5W PMX 750 MG in DEXTROSE/WATER 1 150ML.BAG IVPB SCH (06:14)
[2017-11-20 07:25] LABS: Glucose,Whole Blood 139 mg/dL (75-99)
[2017-11-20] MEDS: IPRATROPIUM-ALBUTEROL 3 ML NEB INHALATION SCH ×4 (08:13→19:16)
[2017-11-20] MEDS: SYMBICORT 160-4.5 MCG INHALER INHALATION SCH ×2 (08:14→19:16)
[2017-11-20] MEDS: EZETIMIBE 10 MG TAB PO SCH (08:24)
[2017-11-20] MEDS: CLOPIDOGREL 75 MG TAB PO SCH (08:24)
[2017-11-20] MEDS: ATENOLOL 25 MG TAB PO SCH ×2 (08:25→20:36)
[2017-11-20] MEDS: ASPIRIN 81 MG PO SCH (08:25)
[2017-11-20] MEDS: MONTELUKAST 10 MG TAB PO SCH (08:25)
[2017-11-20] MEDS: ISOSORBIDE MONONITRATE ER 30 MG TAB.ER.24H PO SCH (08:25)
[2017-11-20] MEDS: cloNIDine HCL 0.1 MG TAB PO SCH ×2 (08:25→20:36)
[2017-11-20] MEDS: NICOTINE 21MG/24HR PATCH TRANSDERM SCH (08:25)
--- NOTE | 2017-11-20 08:25 | XR ---
EXAMINATION TYPE: XR chest 1V DATE OF EXAM: 11/20/2017 COMPARISON: 11/19/2017 HISTORY: intubated TECHNIQUE: Single frontal view of the chest is obtained. FINDINGS: Hyperinflation compatible COPD and there is blunting of both costophrenic angles. Prominen ce the right hilum noted. ET tube noted with Mediport catheter. Surgical change overlying the cervica l spine. No sizable pneumothorax. Interstitium is stable. Tenting of the right hemidiaphragm likely i s chronic. IMPRESSION: Correlate for COPD. There is mild improvement of the interstitium. The right hilum does appear to be prominent in size and there is previous surgery. Correlate clinically. .
[2017-11-20] MEDS: SODIUM CHLORIDE 0.9% 1,000 ML IV SCH (08:26)
[2017-11-20] MEDS: PANTOPRAZOLE 40 MG/10 ML VIAL IV SCH (08:26)
[2017-11-20] MEDS: amLODIPine 5 MG TAB PO SCH ×2 (08:26→20:36)
[2017-11-20] MEDS: ENOXAPARIN 40 MG/0.4 ML SYRINGE SQ SCH (08:26)
[2017-11-20] MEDS: ATORVASTATIN 20 MG TAB PO SCH (08:26)
[2017-11-20] MEDS: RANOLAZINE 500 MG TAB.ER.12H PO SCH ×2 (08:27→20:36)
[2017-11-20] MEDS: lamoTRIgine 100 MG TAB PO SCH (08:27)
[2017-11-20] MEDS: LACTULOSE 20 GM/30 ML CUP PO SCH ×2 (08:27→17:46)
[2017-11-20] MEDS ORDERED: NON-FORMULARY DRUG (Lamotrigine [Lamictal] 200 MG) PO SCH (09:00)
--- NOTE | 2017-11-20 09:28 | P.PN ---
Subjective Progress Note Date: 11/20/17 Principal diagnosis: Acute hypoxic and hypercapnic respiratory failure secondary to COPD and right upper lobe community-acquired pneumonia This is a 57-year-old female with history of severe underlying COPD, patient is O2 dependent, but not prednisone dependent. Known history of lung cancer and previous lobectomy followed by chemotherapy and radiation therapy done in [facility]. Patient never seen a pipe line maintenance supervisor, has been followed mostly by her oncologist all along. She is also followed by her primary care physician Dr. Nguyen. On Monday, the patient presented to [place] ER complaining of shortness of breath and cough, some workup was done according to the family including a CT of the chest, patient was discharged home and advised to follow-up with her primary care physician. She was told that the workup did not show any significant abnormalities. However she was reevaluated again in the ER complaining of worsening shortness of breath cough and wheezing. Apparently she was in severe respiratory distress and she was intubated. Transferred to [facility], admitted to the ICU, and I was asked to see her on consultation. Patient was felt to have severe hypoxic and hypercapnic respiratory failure requiring intubation and mechanical ventilation. Chest x-ray showed adequate placement of the endotracheal tube, it also showed some mild interstitial prominence in the perihilar and suprahilar regions and a minimal focal opacity noted in the right upper lobe. This is a new finding compared to chest x-ray from December of 2015. Patient was placed on bronchodilators, antibiotics, steroids, and she was also placed on GI and DVT prophylaxis/vent bundle. Patient is sedated, on propofol, however I was able to obtain adequate history from family members at bedside. Reevaluated today on 11/17/2017, patient remains on mechanical ventilation, same vent settings, no evidence of receiving pink, and her plateau pressures are in the teens. ABG showed a pO2 of 102 pCO2 of 45 pH of 7.46. Patient remains on propofol, and at times was given Ativan for sedation and for significantly elevated blood pressure she is also on Apresoline as needed for high blood pressure. Patient continues to have significant amount of secretions via the endotracheal tube, hence no plans to wean and extubate today. Patient has been appropriate as far as the mental status is concerned, I lower dose of sedation she seems to follow all instructions. Her CBC is relatively normal except for hemoglobin of 9.9. Electrolytes and basic metabolic profile are normal. ABG showed a pO2 of 102 pCO2 of 45 pH of 7.46. Reflecting mostly a picture of metabolic alkalosis. And adequate respiratory compensation. Chest x-ray showed mild improvement, however the right hilum does appear a bit prominent. Reevaluated today on 11/18/2017, patient remains on mechanical ventilation, same vent settings on assist control mode of mechanical ventilation. ABG showed a pO2 of 107 pCO2 of 42 pH of 7.46. Rest of the labs were noted to be unremarkable. Normal CBC except for hemoglobin of 10 normal basic metabolic profile, normal renal profile. Reevaluated today on 11/19/2017, patient was extubated yesterday, tolerated the extubation quite well. Overnight we had some issues with her elevated blood pressure, however now she is on atenolol, Norvasc, and clonidine. She is also on her usual dose of Ativan, seems to be working quite well. No cough, she continues to have intermittent wheezing, no fever no chills no hemoptysis and no chest pain.labs from today were unremarkable including CBC and basic metabolic profile.chest x-ray showed improvement, there is hyperinflation, no evidence of infiltrate at present, and there is chronic deformity of the right hemidiaphragm. On 11/20/2017 patient seen again in the intensive care unit. She is awake, alert, in no acute distress, sitting up in the chair, currently on 3 L per nasal cannula with O2 sat 97%, afebrile, hemodynamically stable. Today's chest x-ray has been reviewed and shows mostly normal chest x-ray with minimal atelectasis in the right lower lobe. Patient is currently on IV 0.9 normal saline at 20 mL an hour. Lung sounds are positive for scattered wheezes and rhonchi. Patient has occasional productive cough. Patient has been tolerating extubation well, she was extubated on 11/18/2017. Sputum culture was positive for Moraxella catarrhalis and pseudomonas aeruginosa with sensitivity to Levaquin, which the patient is currently on. Patient is tolerating oral intake. No acute events overnight. Bass catheter is in place draining clear yellow urine. From pulmonary standpoint patient is stable for transfer out of the intensive care today. Patient remains sinus rhythm on the monitor. Objective - Vital Signs Vital signs: Vital Signs Temp 98.0 F 11/20/17 08:00 Pulse 78 11/20/17 08:24 Resp 15 11/20/17 08:14 BP 137/69 11/20/17 08:00 Pulse Ox 97 11/20/17 08:00 Intake & Output 11/19/17 11/20/17 11/20/17 18:59 06:59 18:59 Intake Total 1370 840 510 Output Total 2375 2470 575 Balance -1005 -1630 -65 Weight 39.4 kg 39.4 kg Intake: IV 120 0 150 Levofloxacin 750Mg-D5w 150 Pmx 750 mg In Dextrose/ Water 1 150ml.bag @ 100 mls/hr IVPB Q24H [facility] Rx#: [id number] Sodium Chloride 0.9% 1, 120 0 000 ml @ 20 mls/hr IV . Q24H [facility] Rx#:[id number] Intake, IV Titration 350 Amount Levofloxacin 750Mg-D5w 150 Pmx 750 mg In Dextrose/ Water 1 150ml.bag @ 100 mls/hr IVPB Q24H [facility] Rx#: [id number] Magnesium Sulfate-D5w Pmx 200 1 gm In Dextrose/Water 1 100ml.bag @ 100 mls/hr IVPB Q1H [facility] Rx#: [id number] Oral 900 840 360 Output: Urine 2375 2470 575 Other: Voiding Method Indwelling Catheter Indwelling Catheter Indwelling Catheter # Bowel Movements 1 - Exam GENERAL EXAM: Alert, pleasant, thin 57-year-old white female comfortable in no apparent distress. HEAD: Normocephalic/atraumatic. EYES: Normal reaction of pupils, equal size. Conjunctiva pink, sclera white. NOSE: Clear with pink turbinates. THROAT: No erythema or exudates. NECK: No masses, no JVD, no thyroid enlargement, no adenopathy. CHEST: No chest wall deformity. Symmetrical expansion. LUNGS: Equal air entry scattered wheezes and coarse rhonchi, particularly over the right lung CVS: Regular rate and rhythm, normal S1 and S2, no gallops, no murmurs, no rubs ABDOMEN: Soft, nontender. No hepatosplenomegaly, normal bowel sounds, no guarding or rigidity. EXTREMITIES: No clubbing, no edema, no cyanosis, 2+ pulses and upper and lower extremities. MUSCULOSKELETAL: Muscle strength and tone normal. SPINE: No scoliosis or deformity SKIN: No rashes CENTRAL NERVOUS SYSTEM: Alert and oriented -3. No focal deficits, tone is normal in all 4 extremities. PSYCHIATRIC: Alert and oriented -3. Appropriate affect. Intact judgment and insight. - Labs CBC & Chem 7: 11/20/17 04:07 11/20/17 04:07 Labs: Abnormal Lab Results - Last 24 Hours (Table) 11/19/17 11/19/17 11/19/17 Range/Units 12:06 12:21 12:23 Neutrophils # (1.3-7.7) k/uL Lymphocytes # (1.0-4.8) k/uL Chloride (98-107) mmol/L Carbon Dioxide (22-30) mmol/L Creatinine (0.52-1.04) mg/dL Glucose (74-99) mg/dL POC Glucose (mg/dL) 482 H 133 H 136 H (75-99) mg/dL 11/20/17 11/20/17 11/20/17 Range/Units 00:13 04:07 04:07 Neutrophils # 9.2 H (1.3-7.7) k/uL Lymphocytes # 0.6 L (1.0-4.8) k/uL Chloride 95 L (98-107) mmol/L Carbon Dioxide 33 H (22-30) mmol/L Creatinine 0.40 L (0.52-1.04) mg/dL Glucose 132 H (74-99) mg/dL POC Glucose (mg/dL) 141 H (75-99) mg/dL 11/20/17 Range/Units 07:23 Neutrophils # (1.3-7.7) k/uL Lymphocytes # (1.0-4.8) k/uL Chloride (98-107) mmol/L Carbon Dioxide (22-30) mmol/L Creatinine (0.52-1.04) mg/dL Glucose (74-99) mg/dL POC Glucose (mg/dL) 139 H (75-99) mg/dL Assessment and Plan Plan: Assessment: 1 acute hypoxic and hypercapnic respiratory failure requiring intubation and mechanical ventilation secondary to COPD, suspect underlying right upper lobe community-acquired pneumonia.patient was extubated on 11/18/2017, tolerated the extubation quite well so far. 2 history of bronchogenic carcinoma, previous lobectomy followed by radiation and chemotherapy in the last few years. 3 acute community-acquired the right upper lobe pneumonia is strongly suspected.significantly improved on follow-up chest x-ray today. Patient remains on antibiotics. Sputum cultures positive for Moraxella catarrhalis and pseudomonas aeruginosa with sensitivity to Levaquin. Today's chest x-ray shows mostly normal chest x-ray with atelectasis in the right lower lobe 4 history of coronary artery disease 5 history of fibromyalgia 6 history of benign essential hypertension 7 history of previous [place] 8 history of seizure disorder, last seizure was in 2012. 9 history of GERD 10 history of migraine cephalgia. 11 history of irritable bowel syndrome with chronic diarrhea. And intermittent constipation.patient responded well to lactulose Plan: Increase activity as tolerated. Weaning FiO2, continue supportive care including bronchodilators, Levaquin, steroids. Patient remains stable, no acute events overnight, has been tolerating extubation quite well so far. Discontinue indwelling catheter, patient may transfer out of ICU to a regular medical surgical floor today. I performed a history & physical examination of the patient and discussed their management with my nurse practitioner, Pamela Cool. I reviewed the nurse practitioner's note and agree with the documented findings and plan of care. Lung sounds are positive for scattered wheezes and rhonchi on the right. The findings and the impression was discussed with the patient. I attest to the documentation by the nurse practitioner. Critical care time over 30 minutes Time with Patient: Greater than 30
[2017-11-20] MEDS: Lubiprostone [Amitiza] 8 MCG PO SCH (09:30)
[2017-11-20 10:21] VITALS: BMI 14.0
[2017-11-20] MEDS: LORazepam 0.5 MG TAB PO PRN ×2 (10:41→19:11)
[2017-11-20 17:12] LABS: Glucose,Whole Blood 155 mg/dL (75-99)
--- NOTE | 2017-11-20 18:47 | P.PN ---
Subjective Remains intubated patient is found to have Moraxella catarrhalis in his sputum. Patient is having copious amount of sputum production because of which patient did undergo weaning trial today. Patient is on tidal volume of 400, PEEP of 5 FiO2 of 40% on propofol for sedation patient will be continued on levofloxacin other antibiotic will be discontinued. 11/19/2017 Patient is expected clinical doing well wanted to be discharged patient has pseudomonas as well as the Moraxella, sensitive to levofloxacin which will be continued. Patient wanted to go home. She is presently on 4 L fogs and which we're tapering down. 11/20/2017 Patient is clinically doing well and will be transferred out of ICU probably can be discharged tomorrow. Constitutional: Denied any fatigue denied any fever. Cardio vascular: denied any chest pain, palpitations Gastrointestinal denied any nausea vomiting Pulmonary: Denied any shortness of breath cough Neurologic denied any new focal deficits Objective - Vital Signs Vital signs: Vital Signs Temp 97.9 F 11/20/17 15:00 Pulse 74 11/20/17 16:00 Resp 18 11/20/17 16:00 BP 126/60 11/20/17 15:00 Pulse Ox 97 11/20/17 15:00 Intake & Output 11/19/17 11/20/17 11/20/17 18:59 06:59 18:59 Intake Total 1370 840 510 Output Total 2375 2470 575 Balance -1005 -1630 -65 Weight 39.4 kg 39.4 kg Intake: IV 120 0 150 Levofloxacin 750Mg-D5w 150 Pmx 750 mg In Dextrose/ Water 1 150ml.bag @ 100 mls/hr IVPB Q24H [facility] Rx#: [id number] Sodium Chloride 0.9% 1, 120 0 000 ml @ 20 mls/hr IV . Q24H [facility] Rx#:[id number] Intake, IV Titration 350 Amount Levofloxacin 750Mg-D5w 150 Pmx 750 mg In Dextrose/ Water 1 150ml.bag @ 100 mls/hr IVPB Q24H [facility] Rx#: [id number] Magnesium Sulfate-D5w Pmx 200 1 gm In Dextrose/Water 1 100ml.bag @ 100 mls/hr IVPB Q1H [facility] Rx#: [id number] Oral 900 840 360 Output: Urine 2375 2470 575 Other: Voiding Method Indwelling Catheter Indwelling Catheter Indwelling Catheter # Voids 1 # Bowel Movements 1 - Exam PHYSICAL EXAMINATION: GENERAL: The patient is alert and oriented x3, not in any acute distress. Thin built HEENT: Pupils are round and equally reacting to light. EOMI. No scleral icterus. No conjunctival pallor. Normocephalic, atraumatic. No pharyngeal erythema. No thyromegaly. CARDIOVASCULAR: S1 and S2 present. No murmurs, rubs, or gallops. PULMONARY: Chest is clear to auscultation, no wheezing or crackles. ABDOMEN: Soft, nontender, nondistended, normoactive bowel sounds. No palpable organomegaly. MUSCULOSKELETAL: No joint swelling or deformity. EXTREMITIES: No cyanosis, clubbing, or pedal edema. NEUROLOGICAL: Gross neurological examination did not reveal any focal deficits. SKIN: No rashes. - Labs CBC & Chem 7: 11/20/17 04:07 11/20/17 04:07 Labs: Abnormal Lab Results - Last 24 Hours (Table) 11/20/17 11/20/17 11/20/17 Range/Units 00:13 04:07 04:07 Neutrophils # 9.2 H (1.3-7.7) k/uL Lymphocytes # 0.6 L (1.0-4.8) k/uL Chloride 95 L (98-107) mmol/L Carbon Dioxide 33 H (22-30) mmol/L Creatinine 0.40 L (0.52-1.04) mg/dL Glucose 132 H (74-99) mg/dL POC Glucose (mg/dL) 141 H (75-99) mg/dL 11/20/17 11/20/17 Range/Units 07:23 17:10 Neutrophils # (1.3-7.7) k/uL Lymphocytes # (1.0-4.8) k/uL Chloride (98-107) mmol/L Carbon Dioxide (22-30) mmol/L Creatinine (0.52-1.04) mg/dL Glucose (74-99) mg/dL POC Glucose (mg/dL) 139 H 155 H (75-99) mg/dL Assessment and Plan Plan: -Acute hypercapnic respiratory failure: Secondary to COPD exacerbation .. Patient is status post extubation regarding well probably can be discharged tomorrow -right upper lobe pneumonia Moroxiella catarrhalis, and a pseudomonal pneumonia community-acquired patient will be continued on levofloxacin -Mild protein calorie Malnutrition: From chronic smoking. Carotid artery disease -Hyperlipidemia -hypertension -Gases patient is reflux disease for rest of the above-mentioned chronic medical problems patient will be resumed on appropriate home medications.
[2017-11-20 19:58] LABS: Glucose,Whole Blood 201 mg/dL (75-99)
[2017-11-21] MEDS: HYDROcodone/APAP 10-325MG 1 EACH TAB PO PRN ×2 (05:57→14:18)
[2017-11-21] MEDS: LORazepam 0.5 MG TAB PO PRN ×2 (05:57→14:18)
[2017-11-21] MEDS ORDERED: LEVOFLOXACIN 750 MG TAB PO SCH (06:00)
[2017-11-21 06:13] LABS: Glucose,Whole Blood 163 mg/dL (75-99)
[2017-11-21] MEDS ORDERED: PANTOPRAZOLE 40 MG TABLET PO SCH (07:30)
[2017-11-21 07:52] LABS: Basophils % (A) 0 %; Eosinophils % (A) 0 %; HGB 12.3 gm/dL (11.4-16.0); Hypochromasia Slight; Lymphocytes # (A) 0.6 k/uL (1.0-4.8); Lymphocytes % (A) 7 %; MCH 29.2 pg (25.0-35.0); MCHC 31.5 g/dL (31.0-37.0); MCV 92.7 fL (80.0-100.0); Mean Platelet Volume 8.5; Monocytes # (A) 0.4 k/uL (0-1.0); Monocytes % (A) 5 %; Neutrophils # (A) 7.5 k/uL (1.3-7.7); Neutrophils % (A) 86 %; Platelet Count 283 k/uL (150-450); RBC 4.21 m/uL (3.80-5.40); RDW 15.6 % (11.5-15.5); WBC 8.7 k/uL (3.8-10.6)
[2017-11-21 07:56] VITALS: BP 139/71; TEMP 98.1
[2017-11-21] MEDS: NICOTINE 21MG/24HR PATCH TRANSDERM SCH (08:01)
[2017-11-21] MEDS: EZETIMIBE 10 MG TAB PO SCH (08:02)
[2017-11-21] MEDS: lamoTRIgine 100 MG TAB PO SCH (08:02)
[2017-11-21] MEDS: ATENOLOL 25 MG TAB PO SCH (08:02)
[2017-11-21] MEDS: RANOLAZINE 500 MG TAB.ER.12H PO SCH (08:02)
[2017-11-21] MEDS: CLOPIDOGREL 75 MG TAB PO SCH (08:02)
[2017-11-21] MEDS: ATORVASTATIN 20 MG TAB PO SCH (08:02)
[2017-11-21 08:03] LABS: Anion Gap 11 mmol/L; Blood Urea Nitrogen 15 mg/dL (7-17); Calcium 9.4 mg/dL (8.4-10.2); Carbon Dioxide 30 mmol/L (22-30); Chloride 95 mmol/L (98-107); Glucose 116 mg/dL (74-99); Phosphorus 3.8 mg/dL (2.5-4.5); Potassium 4.5 mmol/L (3.5-5.1); Sodium 136 mmol/L (137-145)
[2017-11-21] MEDS: MONTELUKAST 10 MG TAB PO SCH (08:03)
[2017-11-21] MEDS: ISOSORBIDE MONONITRATE ER 30 MG TAB.ER.24H PO SCH (08:03)
[2017-11-21] MEDS: ASPIRIN 81 MG PO SCH (08:03)
[2017-11-21] MEDS: amLODIPine 5 MG TAB PO SCH (08:03)
[2017-11-21] MEDS: ENOXAPARIN 40 MG/0.4 ML SYRINGE SQ SCH (08:03)
[2017-11-21] MEDS: DEXAMETHASONE SOD PHOSPHATE 4 MG/ML 1 ML VIAL IV SCH ×2 (08:04→15:28)
[2017-11-21] MEDS: cloNIDine HCL 0.1 MG TAB PO SCH (08:04)
[2017-11-21] MEDS: LACTULOSE 20 GM/30 ML CUP PO SCH (08:05)
[2017-11-21] MEDS: IPRATROPIUM-ALBUTEROL 3 ML NEB INHALATION SCH ×2 (09:09→12:27)
[2017-11-21] MEDS: SYMBICORT 160-4.5 MCG INHALER INHALATION SCH (09:09)
[2017-11-21 09:11] VITALS: RESP 18
--- NOTE | 2017-11-21 10:33 | XR ---
EXAMINATION TYPE: XR chest 2V DATE OF EXAM: 11/21/2017 COMPARISON: Prior chest x-ray 11/20/2017 HISTORY: Shortness of breath, COPD, lung cancer TECHNIQUE: Frontal and lateral views of the chest are obtained. FINDINGS: Port-A-Cath is stable, distal tip is present over the right atrium. Postop changes noted t o the cervical spine thoracic spine level. Prominent lung volumes may be indicative of COPD. Volume l oss present in the right hemithorax, some tenting of the right hemidiaphragm. Possible calcified gall stone right upper quadrant. The heart is small. IMPRESSION: Postop changes. No acute abnormality. Correlate for possible cholelithiasis.
[2017-11-21] MEDS: Lubiprostone [Amitiza] 8 MCG PO SCH (10:45)
[2017-11-21 11:23] LABS: Glucose,Whole Blood 173 mg/dL (75-99)
[2017-11-21 12:29] VITALS: PULSE 84
--- NOTE | 2017-11-21 12:46 | P.PN ---
Subjective Progress Note Date: 11/21/17 Principal diagnosis: Acute hypoxic and hypercapnic respiratory failure secondary to COPD and right upper lobe community-acquired pneumonia This is a 57-year-old female with history of severe underlying COPD, patient is O2 dependent, but not prednisone dependent. Known history of lung cancer and previous lobectomy followed by chemotherapy and radiation therapy done in [facility]. Patient never seen a ndt inspector, has been followed mostly by her oncologist all along. She is also followed by her primary care physician Dr. Nguyen. On Monday, the patient presented to [place] [facility] complaining of shortness of breath and cough, some workup was done according to the family including a CT of the chest, patient was discharged home and advised to follow-up with her primary care physician. She was told that the workup did not show any significant abnormalities. However she was reevaluated again in the ER complaining of worsening shortness of breath cough and wheezing. Apparently she was in severe respiratory distress and she was intubated. Transferred to [facility], admitted to the ICU, and I was asked to see her on consultation. Patient was felt to have severe hypoxic and hypercapnic respiratory failure requiring intubation and mechanical ventilation. Chest x-ray showed adequate placement of the endotracheal tube, it also showed some mild interstitial prominence in the perihilar and suprahilar regions and a minimal focal opacity noted in the right upper lobe. This is a new finding compared to chest x-ray from December of 2015. Patient was placed on bronchodilators, antibiotics, steroids, and she was also placed on GI and DVT prophylaxis/vent bundle. Patient is sedated, on propofol, however I was able to obtain adequate history from family members at bedside. Reevaluated today on 11/17/2017, patient remains on mechanical ventilation, same vent settings, no evidence of receiving pink, and her plateau pressures are in the teens. ABG showed a pO2 of 102 pCO2 of 45 pH of 7.46. Patient remains on propofol, and at times was given Ativan for sedation and for significantly elevated blood pressure she is also on Apresoline as needed for high blood pressure. Patient continues to have significant amount of secretions via the endotracheal tube, hence no plans to wean and extubate today. Patient has been appropriate as far as the mental status is concerned, I lower dose of sedation she seems to follow all instructions. Her CBC is relatively normal except for hemoglobin of 9.9. Electrolytes and basic metabolic profile are normal. ABG showed a pO2 of 102 pCO2 of 45 pH of 7.46. Reflecting mostly a picture of metabolic alkalosis. And adequate respiratory compensation. Chest x-ray showed mild improvement, however the right hilum does appear a bit prominent. Reevaluated today on 11/18/2017, patient remains on mechanical ventilation, same vent settings on assist control mode of mechanical ventilation. ABG showed a pO2 of 107 pCO2 of 42 pH of 7.46. Rest of the labs were noted to be unremarkable. Normal CBC except for hemoglobin of 10 normal basic metabolic profile, normal renal profile. Reevaluated today on 11/19/2017, patient was extubated yesterday, tolerated the extubation quite well. Overnight we had some issues with her elevated blood pressure, however now she is on atenolol, Norvasc, and clonidine. She is also on her usual dose of Ativan, seems to be working quite well. No cough, she continues to have intermittent wheezing, no fever no chills no hemoptysis and no chest pain.labs from today were unremarkable including CBC and basic metabolic profile.chest x-ray showed improvement, there is hyperinflation, no evidence of infiltrate at present, and there is chronic deformity of the right hemidiaphragm. On 11/20/2017 patient seen again in the intensive care unit. She is awake, alert, in no acute distress, sitting up in the chair, currently on 3 L per nasal cannula with O2 sat 97%, afebrile, hemodynamically stable. Today's chest x-ray has been reviewed and shows mostly normal chest x-ray with minimal atelectasis in the right lower lobe. Patient is currently on IV 0.9 normal saline at 20 mL an hour. Lung sounds are positive for scattered wheezes and rhonchi. Patient has occasional productive cough. Patient has been tolerating extubation well, she was extubated on 11/18/2017. Sputum culture was positive for Moraxella catarrhalis and pseudomonas aeruginosa with sensitivity to Levaquin, which the patient is currently on. Patient is tolerating oral intake. No acute events overnight. Bass catheter is in place draining clear yellow urine. From pulmonary standpoint patient is stable for transfer out of the intensive care today. Patient remains sinus rhythm on the monitor. On 11/21/2017 patient seen in follow-up. Overall she reports significant improvement, denies any dyspnea, denies any chest wall tenderness, denies any fever or chills. Lung sounds are positive for just a few scattered rhonchi, no wheezes, no rhonchi noted. On 3 L per nasal cannula, with O2 sat at 97%, afebrile, vital signs are stable. Sputum culture from 11/16/2017 was positive for Moraxella catarrhalis, and pseudomonas aeruginosa for which the patient is on Levaquin. Today's labs were reviewed, WBCs within normal limits at 8.7, sodium is 136, potassium is 4.5, chloride is 95, renal profile is within normal limits, no acute events overnight, from pulmonary standpoint patient is stable for discharge home today. Follow up with her regular ndt inspector from the [facility]. Objective - Vital Signs Vital signs: Vital Signs Temp 98.1 F 11/21/17 07:00 Pulse 84 11/21/17 12:38 Resp 18 11/21/17 09:09 BP 139/71 11/21/17 07:00 Pulse Ox 97 11/21/17 07:00 Intake & Output 11/20/17 11/21/17 11/21/17 18:59 06:59 18:59 Intake Total 510 Output Total 575 Balance -65 Weight 39.4 kg 39.4 kg Intake: IV 150 Levofloxacin 750Mg-D5w 150 Pmx 750 mg In Dextrose/ Water 1 150ml.bag @ 100 mls/hr IVPB Q24H [facility] Rx#: [id number] Oral 360 Output: Urine 575 Other: Voiding Method Indwelling Catheter Toilet Toilet # Voids 1 2 - Exam GENERAL EXAM: Alert, pleasant, thin 57-year-old white female comfortable in no apparent distress. HEAD: Normocephalic/atraumatic. EYES: Normal reaction of pupils, equal size. Conjunctiva pink, sclera white. NOSE: Clear with pink turbinates. THROAT: No erythema or exudates. NECK: No masses, no JVD, no thyroid enlargement, no adenopathy. CHEST: No chest wall deformity. Symmetrical expansion. LUNGS: Equal air entry with a few scattered rhonchi, particularly over the right lung CVS: Regular rate and rhythm, normal S1 and S2, no gallops, no murmurs, no rubs ABDOMEN: Soft, nontender. No hepatosplenomegaly, normal bowel sounds, no guarding or rigidity. EXTREMITIES: No clubbing, no edema, no cyanosis, 2+ pulses and upper and lower extremities. MUSCULOSKELETAL: Muscle strength and tone normal. SPINE: No scoliosis or deformity SKIN: No rashes CENTRAL NERVOUS SYSTEM: Alert and oriented -3. No focal deficits, tone is normal in all 4 extremities. PSYCHIATRIC: Alert and oriented -3. Appropriate affect. Intact judgment and insight. - Labs CBC & Chem 7: 11/21/17 07:08 11/21/17 07:08 Labs: Abnormal Lab Results - Last 24 Hours (Table) 11/20/17 11/20/17 11/21/17 Range/Units 17:10 19:56 06:11 RDW (11.5-15.5) % Lymphocytes # (1.0-4.8) k/uL Sodium (137-145) mmol/L Chloride (98-107) mmol/L Creatinine (0.52-1.04) mg/dL Glucose (74-99) mg/dL POC Glucose (mg/dL) 155 H 201 H 163 H (75-99) mg/dL 11/21/17 11/21/17 11/21/17 Range/Units 07:08 07:08 11:21 RDW 15.6 H (11.5-15.5) % Lymphocytes # 0.6 L (1.0-4.8) k/uL Sodium 136 L (137-145) mmol/L Chloride 95 L (98-107) mmol/L Creatinine 0.37 L (0.52-1.04) mg/dL Glucose 116 H (74-99) mg/dL POC Glucose (mg/dL) 173 H (75-99) mg/dL Assessment and Plan Plan: Assessment: 1 acute hypoxic and hypercapnic respiratory failure requiring intubation and mechanical ventilation secondary to COPD, suspect underlying right upper lobe community-acquired pneumonia.patient was extubated on 11/18/2017, tolerated the extubation quite well so far. 2 history of bronchogenic carcinoma, previous lobectomy followed by radiation and chemotherapy in the last few years. 3 acute community-acquired the right upper lobe pneumonia is strongly suspected.significantly improved on follow-up chest x-ray today. Patient remains on antibiotics. Sputum cultures positive for Moraxella catarrhalis and pseudomonas aeruginosa with sensitivity to Levaquin. Today's chest x-ray shows mostly normal chest x-ray with atelectasis in the right lower lobe 4 history of coronary artery disease 5 history of fibromyalgia 6 history of benign essential hypertension 7 history of previous DE 8 history of seizure disorder, last seizure was in 2012. 9 history of GERD 10 history of migraine cephalgia. 11 history of irritable bowel syndrome with chronic diarrhea. And intermittent constipation.patient responded well to lactulose Plan: Patient continues to improve, vital signs are stable, denies any fever or chills , denies any chest wall tenderness, denies any worsening dyspnea, tolerating activity well, tolerating oral intake, no acute events overnight, patient remains on Levaquin for evidence of Moraxella catarrhalis and pseudomonas aeruginosa in her sputum. Smoking cessation was strongly advised. From pulmonary standpoint patient is stable for discharge home today, she can follow up with her regular ndt inspector from the [facility]. I performed a history & physical examination of the patient and discussed their management with my nurse practitioner, Pamela Cool. I reviewed the nurse practitioner's note and agree with the documented findings and plan of care. Lung sounds are positive for scattered rhonchi on the right. The findings and the impression was discussed with the patient. I attest to the documentation by the nurse practitioner. Critical care time over 30 minutes Time with Patient: Less than 30
--- NOTE | 2017-11-21 17:24 | P.DS ---
Providers Date of admission: 11/16/17 03:48 Expected date of discharge: 11/21/17 Attending physician: Opal Juarez Consults: 11/16/17 03:48 Consult Physician Routine Consulting Provider: Suhas Chin Consult Reason/Comments: icy Do you want consulting provider notified?: Yes Primary care physician: Physician Nonstaff Hospital Course: Final Diagnoses: -Acute hypercapnic respiratory failure: Secondary to COPD exacerbation .. Patient is status post extubation regarding well probably can be discharged tomorrow -right upper lobe pneumonia Moroxiella catarrhalis, and a pseudomonal pneumonia community-acquired patient will be continued on levofloxacin -Mild protein calorie Malnutrition: From chronic smoking. Carotid artery disease -Hyperlipidemia -hypertension -Gases patient is reflux disease Hospital course:Patient is a pleasant 57-year-old female came in intubated from [facility]. Patient wasn't a day with the severe exacerbation patient went into respiratory failure initially was on BiPAP subsequently intubated patient is presently on 50% FiO2 PEEP of 5 pedal edema 400. RASS 0 to -1. Patient had occasional upper lobe opacity because of which patient is on antibiotics in the form of levofloxacin and Azetreonam. Patient doesn't have any fevers. No significant out put endotracheal tube. Patient has an NG tube in place. Evaluated by pulmonary. Extubated, maintaining O2 sats in the high 90s on 3 L nasal cannula. Maintained on IV antibiotics; Moraxella catarrhalis and pseudomonas in her sputum. Significant clinical improvement. Patient has been cleared for discharge by pulmonary. Patient is being discharged home in stable condition with guarded prognosis. Physical Exam:VSS, alert and oriented 3 no acute distress. CARDIOVASCULAR: S1 and S2 present. No murmurs, rubs, or gallops. PULMONARY: Chest is clear to auscultation, no wheezing or crackles.ABDOMEN: Soft , nontender, nondistended, normoactive bowel sounds. NEUROLOGICAL: Gross neurological examination did not reveal any focal deficits The impression and plan of care has been dictated as directed. : I performed a history and examination of this patient, discussed the same with the dictator. I agree with the dictator's note ,documented as a scribe. Any additional findings or plans will be noted. Time taken: 35 minutes Patient Condition at Discharge: Stable Plan - Discharge Summary Discharge Rx Participant: Yes New Discharge Prescriptions: New Ipratropium-Albuterol Nebulize [Duoneb 0.5 mg-3 mg/3 ml Soln] 3 ml INHALATION RT-QID #120 ampul.neb Levofloxacin [Levaquin] 500 mg PO DAILY #9 tab amLODIPine [Norvasc] 5 mg PO BID #60 tab cloNIDine HCL [Catapres] 0.1 mg PO BID #60 tab Lactulose [Cephulac] 30 gm PO DAILY #300 ml Nicotine 21Mg/24Hr Patch [Habitrol] 1 patch TRANSDERM DAILY #30 patch Pantoprazole [Protonix] 40 mg PO AC-BRKFST #15 tablet. Atenolol [Tenormin] 25 mg PO BID #60 tab Continue Fludrocortisone [Florinef] 0.1 mg PO BID Ranolazine [Ranexa] 500 mg PO BID Pitavastatin Calcium [Livalo] 4 mg PO DAILY Montelukast [Singulair] 10 mg PO DAILY Midodrine [ProAmatine] 5 mg PO TID LORazepam [Ativan] 0.5 mg PO BID HYDROcodone/APAP 10-325MG [[place] 10-325] 1 tab PO TID Fluticasone/Salmeterol [Advair 500-50 Diskus] 1 puff INHALATION RT-DAILY Aspirin 81 mg PO DAILY lamoTRIgine [LaMICtal] 200 mg PO DAILY Potassium Chloride ER [K-Dur 20] 20 meq PO DAILY Nitroglycerin Sl Tabs [Nitrostat] 0.4 mg SUBLINGUAL Q5M PRN PRN Reason: Chest Pain Ipratropium/Albuterol Sulfate [Combivent Respimat Inhaler] 1 puff INHALATION RT-QID Ezetimibe [Zetia] 10 mg PO DAILY Lubiprostone [Amitiza] 8 mcg PO DAILY Clopidogrel [Plavix] 75 mg PO DAILY Isosorbide Mononitrate ER [Imdur] 30 mg PO DAILY Discontinued Dronedarone [Multaq] 400 mg PO AC-BID Discharge Medication List Aspirin 81 mg PO DAILY 11/16/17 [History] Clopidogrel [Plavix] 75 mg PO DAILY 11/16/17 [History] Ezetimibe [Zetia] 10 mg PO DAILY 11/16/17 [History] Fludrocortisone [Florinef] 0.1 mg PO BID 11/16/17 [History] Fluticasone/Salmeterol [Advair 500-50 Diskus] 1 puff INHALATION RT-DAILY [History] HYDROcodone/APAP 10-325MG [[place] 10-325] 1 tab PO TID 11/16/17 [History] Ipratropium/Albuterol Sulfate [Combivent Respimat Inhaler] 1 puff INHALATION RT- QID 11/16/17 [History] Isosorbide Mononitrate ER [Imdur] 30 mg PO DAILY 11/16/17 [History] LORazepam [Ativan] 0.5 mg PO BID 11/16/17 [History] Lubiprostone [Amitiza] 8 mcg PO DAILY 11/16/17 [History] Midodrine [ProAmatine] 5 mg PO TID 11/16/17 [History] Montelukast [Singulair] 10 mg PO DAILY 11/16/17 [History] Nitroglycerin Sl Tabs [Nitrostat] 0.4 mg SUBLINGUAL Q5M PRN 11/16/17 [History] Pitavastatin Calcium [Livalo] 4 mg PO DAILY 11/16/17 [History] Potassium Chloride ER [K-Dur 20] 20 meq PO DAILY 11/16/17 [History] Ranolazine [Ranexa] 500 mg PO BID 11/16/17 [History] lamoTRIgine [LaMICtal] 200 mg PO DAILY 11/16/17 [History] Atenolol [Tenormin] 25 mg PO BID #60 tab 11/21/17 [Rx] Ipratropium-Albuterol Nebulize [Duoneb 0.5 mg-3 mg/3 ml Soln] 3 ml INHALATION RT -QID #120 ampul.neb 11/21/17 [Rx] Lactulose [Cephulac] 30 gm PO DAILY #300 ml 11/21/17 [Rx] Levofloxacin [Levaquin] 500 mg PO DAILY #9 tab 11/21/17 [Rx] Nicotine 21Mg/24Hr Patch [Habitrol] 1 patch TRANSDERM DAILY #30 patch 11/21/17 [ Rx] Pantoprazole [Protonix] 40 mg PO AC-BRKFST #15 tablet. 11/21/17 [Rx] amLODIPine [Norvasc] 5 mg PO BID #60 tab 11/21/17 [Rx] cloNIDine HCL [Catapres] 0.1 mg PO BID #60 tab 11/21/17 [Rx] Follow up Appointment(s)/Referral(s): Dr. Navi PCP in [place] [Other] - 1 Week Suhas Chin MD [STAFF PHYSICIAN] - 12/12/17 1:00 pm Ambulatory/Diagnostic Orders: Complete Blood Count w/diff [LAB.AMB] Time Frame: 3 Days, Location: Determined By Patient Patient Instructions/Handouts: Atenolol (By mouth), Clonidine (By mouth), Nicotine (Absorbed through the skin), Lactulose (By mouth), Amlodipine (By mouth ), Levofloxacin (By mouth), Ipratropium/Albuterol (By breathing), Dexamethasone (By mouth), Pantoprazole (By mouth), COPD (Chronic Obstructive Pulmonary Disease ) (DC) Activity/Diet/Wound Care/Special Instructions: Decadron taper, manual rx given Discharge Disposition: HOME SELF-CARE
== END 2017-11-21 16:57 | disposition home or self-care (01) | DRG 208 ==
LOC: EC 03:11 → 6ICU 03:48 → 5ONC 11-20 09:33
PROVIDERS: ADMIT Hospitalist; ATTEND Hospitalist
PROC: 5A1945Z Respiratory Ventilation, 24-96 Consecutive Hours (ICD-10-PCS; principal; 2017-11-16)
DX: J96.22 Acute and chronic respiratory failure with hypercapnia (principal); J15.6 Pneumonia due to other Gram-negative bacteria; J15.1 Pneumonia due to Pseudomonas; R64 Cachexia; E44.1 Mild protein-calorie malnutrition; E87.3 Alkalosis; J44.0 Chronic obstructive pulmonary disease with (acute) lower respiratory infection; J44.1 Chronic obstructive pulmonary disease with (acute) exacerbation; Z68.1 Body mass index [BMI] 19.9 or less, adult; J98.11 Atelectasis; J96.21 Acute and chronic respiratory failure with hypoxia; Z99.81 Dependence on supplemental oxygen; I10 Essential (primary) hypertension; I25.10 Atherosclerotic heart disease of native coronary artery without angina pectoris; E78.5 Hyperlipidemia, unspecified; K21.9 Gastro-esophageal reflux disease without esophagitis; M79.7 Fibromyalgia; I25.2 Old myocardial infarction; M19.91 Primary osteoarthritis, unspecified site; G40.909 Epilepsy, unspecified, not intractable, without status epilepticus; G43.909 Migraine, unspecified, not intractable, without status migrainosus; M81.0 Age-related osteoporosis without current pathological fracture; K58.0 Irritable bowel syndrome with diarrhea; K44.9 Diaphragmatic hernia without obstruction or gangrene; G47.00 Insomnia, unspecified; J31.0 Chronic rhinitis; I77.9 Disorder of arteries and arterioles, unspecified; M26.609 Unspecified temporomandibular joint disorder, unspecified side; M54.2 Cervicalgia; M54.9 Dorsalgia, unspecified; G89.29 Other chronic pain; F17.200 Nicotine dependence, unspecified, uncomplicated; Z71.6 Tobacco abuse counseling; Z79.82 Long term (current) use of aspirin; Z79.02 Long term (current) use of antithrombotics/antiplatelets; Z79.51 Long term (current) use of inhaled steroids; Z79.899 Other long term (current) drug therapy; Z74.01 Bed confinement status; Z95.5 Presence of coronary angioplasty implant and graft; Z90.710 Acquired absence of both cervix and uterus; Z98.1 Arthrodesis status; Z85.118 Personal history of other malignant neoplasm of bronchus and lung; Z90.2 Acquired absence of lung [part of]; Z92.3 Personal history of irradiation; Z92.21 Personal history of antineoplastic chemotherapy; Z87.19 Personal history of other diseases of the digestive system; Z88.5 Allergy status to narcotic agent; Z88.0 Allergy status to penicillin; Z88.8 Allergy status to other drugs, medicaments and biological substances; Z86.73 Personal history of transient ischemic attack (TIA), and cerebral infarction without residual deficits; Z81.1 Family history of alcohol abuse and dependence; Z80.9 Family history of malignant neoplasm, unspecified; Z82.49 Family history of ischemic heart disease and other diseases of the circulatory system
CPT/HCPCS: 36600; 51702; 71045; 71046; 80048; 80053; 81001; 82805; 83036; 83605; 83735; 83880; 84100; 85025; 87070; 87077; 87086; 87186; 87205; 94002; 94003; 94640; 96365; 96366; 99291

== ENCOUNTER 2018-01-20 14:14 | Inpatient (IN) | payer MEDICARE, OTHER ==
[2018-01-20] MEDS ORDERED: ALBUTEROL NEBULIZED 2.5 MG/3 ML INHALATION STA (14:24)
[2018-01-20] MEDS ORDERED: SODIUM CHLORIDE 0.9% 1,000 ML IV STA (14:24)
[2018-01-20] MEDS ORDERED: EPINEPHrine 1 MG/ML 1 ML AMP SQ STA (14:24)
[2018-01-20] MEDS ORDERED: LORazepam 2 MG/ML INJ IV STA ×2 (14:39→16:11)
[2018-01-20 14:56] LABS: ABG Base Excess 13.2 mmol/L; ABG Oxygen Saturation 99.6 % (94-97); ABG PH 7.31 (7.35-7.45); ABG PO2 247 mmHg (83-108); ABG TCO2 42 mmol/L (19-24)
[2018-01-20 15:00] LABS: Anisocytosis Slight; Basophils % (A) 0 %; Eosinophils # (A) 0.1 k/uL (0-0.7); Eosinophils % (A) 1 %; HCT 38.5 % (34.0-46.0); HGB 12.4 gm/dL (11.4-16.0); Hypochromasia Slight; Lymphocytes # (A) 0.3 k/uL (1.0-4.8); Lymphocytes % (A) 3 %; MCH 29.5 pg (25.0-35.0); MCHC 32.1 g/dL (31.0-37.0); MCV 91.8 fL (80.0-100.0); Mean Platelet Volume 8.1; Monocytes # (A) 0.3 k/uL (0-1.0); Monocytes % (A) 3 %; Neutrophils # (A) 9.6 k/uL (1.3-7.7); Neutrophils % (A) 92 %; Platelet Count 209 k/uL (150-450); RDW 16.7 % (11.5-15.5); WBC 10.5 k/uL (3.8-10.6)
[2018-01-20 15:02] LABS: ALT 35 U/L (9-52); AST 26 U/L (14-36); Albumin 3.7 g/dL (3.5-5.0); Alkaline Phosphatase 100 U/L (38-126); Anion Gap 13 mmol/L; Blood Urea Nitrogen 20 mg/dL (7-17); Calcium 9.5 mg/dL (8.4-10.2); Carbon Dioxide 36 mmol/L (22-30); Chloride 92 mmol/L (98-107); Glucose 122 mg/dL (74-99); INR 1.2 (<1.2); Potassium 3.8 mmol/L (3.5-5.1); Prothrombin Time 11.1 sec (9.0-12.0); Sodium 141 mmol/L (137-145); Total Bilirubin 0.3 mg/dL (0.2-1.3); Total Protein 6.4 g/dL (6.3-8.2)
[2018-01-20 15:06] LABS: ABG HCO3 40 mmol/L (21-25); ABG PCO2 79 mmHg (35-45)
[2018-01-20 15:16] LABS: Creatine Kinase 44 U/L (30-135)
[2018-01-20 15:17] LABS: D-Dimer 0.79 mg/L FEU (<0.60); Partial Thromboplastin Time 19.2 sec (22.0-30.0)
[2018-01-20 15:27] LABS: Troponin I <0.012 ng/mL (0.000-0.034)
--- NOTE | 2018-01-20 15:43 | XR ---
EXAMINATION TYPE: XR chest 1V portable DATE OF EXAM: 01/20/2018 COMPARISON: 11/21/2017 HISTORY: Shortness of breath TECHNIQUE: Single frontal view of the chest is obtained. FINDINGS: Port-A-Cath is stable, distal tip is present over the right atrium. Postop changes noted t o the cervical spine . Prominent lung volumes may be indicative of COPD. Volume loss present in the r ight hemithorax, some tenting of the right hemidiaphragm. Possible calcified gallstone right upper qu adrant. The heart is stable. IMPRESSION: 1. Stable chronic pleural-parenchymal changes on the right with right hilar fullness which may relate a history of malignancy. 2. There is new area of consolidation involving the right lung apex could been the basis of infiltrat e. Correlate clinically.
[2018-01-20] MEDS ORDERED: TEMAZEPAM 15 MG CAP PO PRN (16:37)
[2018-01-20] MEDS ORDERED: ALPRAZolam 0.25 MG TAB PO PRN (16:37)
[2018-01-20] MEDS ORDERED: NITROGLYCERIN SL TABS 0.4 MG TAB SUBLINGUAL PRN (16:39)
[2018-01-20] MEDS ORDERED: IPRATROPIUM-ALBUTEROL 3 ML NEB INHALATION SCH (16:45)
[2018-01-20] MEDS ORDERED: INSULIN ASPART 100 UNIT/ML 1 ML 10 ML VIAL SQ SCH (17:30)
--- NOTE | 2018-01-20 18:06 | CT ---
EXAMINATION TYPE: CT angio chest DATE OF EXAM: 01/20/2018 5:47 PM COMPARISON: Chest x-ray 01/20/2018 and 11/21/2017 HISTORY: Difficulty breathing. CT DLP: 117.1 mGycm Automated exposure control for dose reduction was used. CONTRAST: CTA scan of the thorax is performed with IV Contrast, patient injected with 63ml mL of Isovue 370, pu lmonary embolism protocol. . FINDINGS: LUNGS: There is soft tissue fullness along the right paratracheal region extending in the right lung apex. This could represent adenopathy or mass. Right-sided pleural effusion and consolidation noted. There is abnormal attenuation the subcarinal region. This may represent adenopathy. This extends comfort g the right periaortic region. Chronic underlying interstitial lung disease suspected. There is no pn eumothorax. Traction bronchiectasis involving the right upper lobe noted. 1 cm nodule along the left hemidiaphragm. MEDIASTINUM: There is satisfactory enhancement of the pulmonary artery and its branches, there is no CT evidence for pulmonary embolism. There are no greater than 1 cm hilar or mediastinal lymph nodes. No pericardial effusion is seen. Pulmonary arteries enhance normally. Atherosclerotic change of th e aorta. No evidence of aneurysm. OTHER: Hypertrophic and degenerative changes of the vertebral column. Postsurgical change involving the cervical spine. Simple esophageal wall is thickened correlate clinically for esophagitis. Liver i s diffusely reduced in attenuation. There is a large area of soft tissue edema in the mesentery surro unding the aorta extending of liver which may represent massive adenopathy. IMPRESSION: 1. No diagnostic evidence of pulmonary embolism 2. Pleural-parenchymal changes on the right which appear to be chronic, however, there appears to be increased attenuation along the right paraspinal line, periaortic region, subcarinal soft tissue dens ity and particularly noted in the right hilum and right paratracheal structures extending into the ri ght lung apex relative to the previous chest x-ray. This appears to be new finding relative to the pr evious chest x-ray. This could represent progression of neoplastic disease or adenopathy. Differentia l diagnosis would also include infiltrates with regard to the right upper lobe. 3. There is a 1 cm left lower lobe nodule adjacent to the diaphragm. Neoplastic process in the differ ential diagnosis. 4. Findings suggest underlying COPD with chronic interstitial lung disease. 5. Reduced attenuation the liver may represent hepatic steatosis. However, there is marked abnormal s oft tissue mesentery extending into the periaortic region suggestive of massive adenopathy.
[2018-01-20] MEDS: NICOTINE 14MG/24HR PATCH TRANSDERM SCH (18:08)
[2018-01-20] MEDS: LEVOFLOXACIN 500MG-D5W PMX 500 MG in DEXTROSE/WATER 1 100ML.BAG IVPB SCH (18:09)
[2018-01-20] MEDS ORDERED: IPRATROPIUM-ALBUTEROL 3 ML NEB INHALATION PRN (18:43)
--- NOTE | 2018-01-20 18:43 | ED ---
SOB HPI - General Chief Complaint: Shortness of Breath Stated Complaint: DIFFICULTY BREATHING Time Seen by Provider: 01/20/18 14:23 Source: EMS Mode of arrival: EMS Limitations: no limitations - History of Present Illness Initial Comments: 57 years O female comes with a shortness of breath shortness of breath is ongoing for a few hours, it got to the point that she can even converse she does wear oxygen at home 3 L EMS reported that on their arrival to her house O2 sat was 84% room she is complaining about chest pain it gets worse with the deep breaths denies she is coughing with purulent sputum. Denies any abdominal pain no frequency urgency dysuria no symptoms of TIA or CVA - Related Data Home Medications Medication Instructions Recorded Confirmed Aspirin 81 mg PO DAILY 11/16/17 01/20/18 Clopidogrel [Plavix] 75 mg PO DAILY 11/16/17 01/20/18 Ezetimibe [Zetia] 10 mg PO DAILY 11/16/17 01/20/18 Fludrocortisone [Florinef] 0.1 mg PO BID 11/16/17 01/20/18 Fluticasone/Salmeterol [Advair 1 puff INHALATION RT-DAILY 11/16/17 01/20/18 500-50 Diskus] HYDROcodone/APAP 10-325MG [[place] 1 tab PO TID 11/16/17 01/20/18 10-325] Ipratropium/Albuterol Sulfate 1 puff INHALATION RT-QID 11/16/17 01/20/18 [Combivent Respimat Inhaler] Isosorbide Mononitrate ER [Imdur] 30 mg PO DAILY 11/16/17 01/20/18 LORazepam [Ativan] 0.5 mg PO QID PRN 11/16/17 01/20/18 Lubiprostone [Amitiza] 8 mcg PO DAILY 11/16/17 01/20/18 Montelukast [Singulair] 10 mg PO DAILY 11/16/17 01/20/18 Nitroglycerin Sl Tabs [Nitrostat] 0.4 mg SUBLINGUAL Q5M PRN 11/16/17 01/20/18 Pitavastatin Calcium [Livalo] 4 mg PO DAILY 11/16/17 01/20/18 Potassium Chloride ER [K-Dur 20] 20 meq PO DAILY 11/16/17 01/20/18 Ranolazine [Ranexa] 500 mg PO BID 11/16/17 01/20/18 lamoTRIgine [LaMICtal] 200 mg PO DAILY 11/16/17 01/20/18 Cyproheptadine HCl [Periactin] 4 mg PO TID 01/20/18 01/20/18 Dronedarone [Multaq] 400 mg PO AC-BID 01/20/18 01/20/18 Escitalopram [Lexapro] 20 mg PO DAILY 01/20/18 01/20/18 Gabapentin [Neurontin] 300 mg PO BID 01/20/18 01/20/18 Omeprazole [PriLOSEC] 40 mg PO BID 01/20/18 01/20/18 Previous Rx's Medication Instructions Recorded Atenolol [Tenormin] 25 mg PO BID #60 tab 11/21/17 Ipratropium-Albuterol Nebulize 3 ml INHALATION RT-QID #120 11/21/17 [Duoneb 0.5 mg-3 mg/3 ml Soln] ampul.neb Lactulose [Cephulac] 30 gm PO DAILY #300 ml 11/21/17 amLODIPine [Norvasc] 5 mg PO BID #60 tab 11/21/17 cloNIDine HCL [Catapres] 0.1 mg PO BID #60 tab 11/21/17 Allergies Allergy/AdvReac Type Severity Reaction Status Date / Time fentanyl AdvReac Unknown Verified 01/20/18 15:53 morphine AdvReac Unknown Verified 01/20/18 15:53 oxycodone AdvReac Unknown Verified 01/20/18 15:53 Penicillins AdvReac Unknown Verified 01/20/18 15:53 prednisone AdvReac Unknown Verified 01/20/18 15:53 pregabalin [From Lyrica] AdvReac Unknown Verified 01/20/18 15:53 Review of Systems ROS Statement: Those systems with pertinent positive or pertinent negative responses have been documented in the HPI. ROS Other: All systems not noted in ROS Statement are negative. Past Medical History Past Medical History: Asthma, Coronary Artery Disease (CAD), Cancer, Chest Pain / Angina, COPD, CVA/TIA, Fibromyalgia, GERD/Reflux, Hyperlipidemia, Hypertension , Myocardial Infarction ([place]), Osteoarthritis (OA), Respiratory Disorder, Seizure Disorder, Syncope Additional Past Medical History / Comment(s): Chronic respiratory failure, home O2 2L/NC ATC, R Lung cancer with surgery/chemo/radiation about 1.5 yrs ago (tx at [facility]), bronchitis, [place]-many years ago-exact date unknown, TIA, migraines, last seizure 2012, DJD, chronic back/cervical pain, limited ROM in neck, R knee pain/derangement, osteoporosis, IBS, benign colon lesion, diarrhea- chronic, hiatal hernia, insomnia, hypoglycemia, rhinitis, TMJ syndrome, R hand thumb tendon surgery-limited ROM and pt is R handed. Brother and caregiver state that pt has a very good apetite and eats well but continues to lose weight. Caregiver also jsut learned and is concerned that pt's last BM was a week ago. Last Myocardial Infarction Date:: unkn-years ago History of Any Multi-Drug Resistant Organisms: None Reported Past Surgical History: Section, Heart Catheterization, Heart Catheterization With Stent, Hysterectomy Additional Past Surgical History / Comment(s): R lung lobectomy, mediport, R rib 3 benign tumors, liver bx-nonmalignant tumor, PCI with stent 2011, EGDs, colonoscopy, cervical plate, knee arthroscopy-laterallity unknown, R carpal tunnel release, tendons cut toes bilateral feet, bilateral great toes bunionectomy/ingrown toenails, R thumb tendon surgery. Past Anesthesia/Blood Transfusion Reactions: No Reported Reaction Date of Last Stent Placement:: 08/03/12 Past Psychological History: Anxiety, Depression Smoking Status: Current every day smoker Past Alcohol Use History: None Reported Past Drug Use History: None Reported - Past Family History Father History Unknown: Yes Additional Family Medical History / Comment(s): Father was an alcoholic and was murdered at the age of 52 yrs. Mother Family Medical History: Cancer, Coronary Artery Disease (CAD), Hypertension Additional Family Medical History / Comment(s): Mother of metastatic cancer -primary unknown to family. General Exam - General Exam Comments Initial Comments: General: The patient is awake and alert, in in severe distress him unable to talk, using accessory muscles Skin: Skin is warm and dry and no rashes or lesions are noted. Eye: Pupils are equal, round and reactive to light, extra-ocular movements are intact; there is normal conjunctiva bilaterally. Ears, nose, mouth and throat: There are moist mucous membranes and no oral lesions. Neck: The neck is supple, there is no tenderness Cardiovascular: There is a regular rate and rhythm. No murmur, rub or gallop is appreciated. Respiratory: To auscultation bilateral, barely moving any air Gastrointestinal: Soft, non-distended, non-tender abdomen without masses or organomegaly noted. There is no rebound or guarding present. Bowel sounds are unremarkable. Back: There is no tenderness to palpation in the midline. There is no obvious deformity. Musculoskeletal: Normal ROM, no tenderness, There is no pedal edema. There is no calf tenderness or swelling. No cords were appreciated. Neurological: CN II-XII intact, Cranial nerves III through XII are intact. There are no obvious motor or sensory deficits. Coordination appears grossly intact. Speech is normal. Psychiatric: Cooperative, appropriate mood & affect, normal judgment. Limitations: no limitations Course Vital Signs 01/20/18 01/20/18 01/20/18 14:20 14:56 15:07 Temperature 97 F L Pulse Rate 108 H 108 H 108 H Respiratory 24 24 Rate Blood Pressure 155/71 155/71 O2 Sat by Pulse 99 100 Oximetry 01/20/18 01/20/18 01/20/18 15:12 15:16 15:55 Temperature Pulse Rate 125 H 118 H 117 H Respiratory 30 H 28 H Rate Blood Pressure 167/94 143/67 O2 Sat by Pulse 100 98 Oximetry 01/20/18 17:32 Temperature Pulse Rate 112 H Respiratory 28 H Rate Blood Pressure 166/77 O2 Sat by Pulse 99 Oximetry EKG is a sinus tachycardia ventricular rate is 107 VA interval is 148 QRS duration is 90 QT is/QTc is 376/501 review of this EKG does not reveal any ST elevation or ST depression Medical Decision Making - Lab Data Result diagrams: 01/20/18 14:25 01/20/18 14:25 Lab Results 01/20/18 01/20/18 01/20/18 Range/Units 14:25 14:25 14:25 WBC 10.5 (3.8-10.6) k/uL RBC 4.20 (3.80-5.40) m/uL Hgb 12.4 (11.4-16.0) gm/dL Hct 38.5 (34.0-46.0) % MCV 91.8 (80.0-100.0) fL MCH 29.5 (25.0-35.0) pg MCHC 32.1 (31.0-37.0) g/dL RDW 16.7 H (11.5-15.5) % Plt Count 209 (150-450) k/uL Neutrophils % 92 % Lymphocytes % 3 % Monocytes % 3 % Eosinophils % 1 % Basophils % 0 % Neutrophils # 9.6 H (1.3-7.7) k/uL Lymphocytes # 0.3 L (1.0-4.8) k/uL Monocytes # 0.3 (0-1.0) k/uL Eosinophils # 0.1 (0-0.7) k/uL Basophils # 0.0 (0-0.2) k/uL Hypochromasia Slight Anisocytosis Slight PT (9.0-12.0) sec INR (<1.2) APTT (22.0-30.0) sec D-Dimer (<0.60) mg/L FEU Sample Site ABG pH (7.35-7.45) ABG pCO2 (35-45) mmHg ABG pO2 (83-108) mmHg ABG HCO3 (21-25) mmol/L ABG Total CO2 (19-24) mmol/L ABG O2 Saturation (94-97) % ABG Base Excess mmol/L Edgardo Test FiO2 % Sodium 141 (137-145) mmol/L Potassium 3.8 (3.5-5.1) mmol/L Chloride 92 L (98-107) mmol/L Carbon Dioxide 36 H (22-30) mmol/L Anion Gap 13 mmol/L BUN 20 H (7-17) mg/dL Creatinine 0.40 L (0.52-1.04) mg/dL Est GFR (CKD-EPI)AfAm >90 (>60 ml/min/1.73 sqM) Est GFR (CKD-EPI)NonAf >90 (>60 ml/min/1.73 sqM) Glucose 122 H (74-99) mg/dL Calcium 9.5 (8.4-10.2) mg/dL Total Bilirubin 0.3 (0.2-1.3) mg/dL AST 26 (14-36) U/L ALT 35 (9-52) U/L Alkaline Phosphatase 100 (38-126) U/L Total Creatine Kinase 44 (30-135) U/L CK-MB (CK-2) 3.0 H* (0.0-2.4) ng/mL CK-MB (CK-2) Rel Index 6.8 Troponin I <0.012 (0.000-0.034) ng/mL NT-Pro-B Natriuret Pep pg/mL Total Protein 6.4 (6.3-8.2) g/dL Albumin 3.7 (3.5-5.0) g/dL 01/20/18 01/20/18 01/20/18 Range/Units 14:25 14:25 14:50 WBC (3.8-10.6) k/uL RBC (3.80-5.40) m/uL Hgb (11.4-16.0) gm/dL Hct (34.0-46.0) % MCV (80.0-100.0) fL MCH (25.0-35.0) pg MCHC (31.0-37.0) g/dL RDW (11.5-15.5) % Plt Count (150-450) k/uL Neutrophils % % Lymphocytes % % Monocytes % % Eosinophils % % Basophils % % Neutrophils # (1.3-7.7) k/uL Lymphocytes # (1.0-4.8) k/uL Monocytes # (0-1.0) k/uL Eosinophils # (0-0.7) k/uL Basophils # (0-0.2) k/uL Hypochromasia Anisocytosis PT 11.1 (9.0-12.0) sec INR 1.2 H (<1.2) APTT 19.2 L (22.0-30.0) sec D-Dimer 0.79 H (<0.60) mg/L FEU Sample Site L RAD ABG pH 7.31 L (7.35-7.45) ABG pCO2 79 H* (35-45) mmHg ABG pO2 247 H (83-108) mmHg ABG HCO3 40 H* (21-25) mmol/L ABG Total CO2 42 H (19-24) mmol/L ABG O2 Saturation 99.6 H (94-97) % ABG Base Excess 13.2 mmol/L Edgardo Test Yes FiO2 60 % Sodium (137-145) mmol/L Potassium (3.5-5.1) mmol/L Chloride (98-107) mmol/L Carbon Dioxide (22-30) mmol/L Anion Gap mmol/L BUN (7-17) mg/dL Creatinine (0.52-1.04) mg/dL Est GFR (CKD-EPI)AfAm (>60 ml/min/1.73 sqM) Est GFR (CKD-EPI)NonAf (>60 ml/min/1.73 sqM) Glucose (74-99) mg/dL Calcium (8.4-10.2) mg/dL Total Bilirubin (0.2-1.3) mg/dL AST (14-36) U/L ALT (9-52) U/L Alkaline Phosphatase (38-126) U/L Total Creatine Kinase (30-135) U/L CK-MB (CK-2) (0.0-2.4) ng/mL CK-MB (CK-2) Rel Index Troponin I (0.000-0.034) ng/mL NT-Pro-B Natriuret Pep 363 pg/mL Total Protein (6.3-8.2) g/dL Albumin (3.5-5.0) g/dL Critical Care Time Total Critical Care Time: 30 Critical Care Time: She came in now with a tachycardia and tachypnea she was so distressed out she couldn't speak she was in a CPAP when EMS and we converted that to BiPAP CBC is unremarkable d-dimer is quite elevated CO2 is 80, his metabolic panel is unremarkable troponin is normal EKG was unremarkable x-rays showed pneumonia and now there is a question of mass lung mass in his question of lung nodules patient be admitted with the bronchodilators with IV steroids with the inhaled steroids be consulted with pulmonary medicine Dr. Chin or she be admitted to Dr. Webster service Disposition Clinical Impression: Tachycardia, Tachypnea, Lung mass, Lung nodule Disposition: ADMITTED IP TO THIS HOSP Condition: Good Referrals: None,Stated [Primary Care Provider] - 1-2 days
--- NOTE | 2018-01-20 19:07 | HP ---
HISTORY AND PHYSICAL CHIEF COMPLAINT: Shortness of breath. HISTORY OF PRESENT ILLNESS: This 57-year-old woman with a past medical history of multiple medical problems including COPD, history of CAD, fibromyalgia, hypertension, hyperlipidemia, being followed by Dr. Denney from the [facility], was admitted COPD acute exacerbation. Patient apparently continues to smoke. The patient's shortness of breath increasing for the last several days. Patient had shortness of breath for the last 2 months and the patient came to [facility] and found to have acute hypoxic respiratory failure. Patient started on BiPAP at 50% and 14 and 5 and the patient has been closely monitored at this time. There is no history of fever, rigors. No history of headache, loss of consciousness, seizures. PAST MEDICAL HISTORY: Asthma, COPD, history of CVA, TIA, fibromyalgia, GERD, hypertension, hyperlipidemia. MEDICATIONS: Prior to admission, home medications are reviewed and include: 1. Lamictal 200 mg p.o. daily. 2. Catapres 0.1 p.o. b.i.d. 3. Norvasc 5 mg p.o. b.i.d. 4. Ranexa 500 mg p.o. b.i.d. 5. K-Dur 20 mg p.o. daily. 6. Livalo 4 mg p.o. daily. 7. Prilosec 40 mg p.o. daily. 8. Nitrostat 0.4 sublingual p.r.n. 10.Amitiza 8 mcg p.o. daily. 11.Cephulac 30 30 g. p.o. daily. 12.Ativan 0.5 mg q.i.d. p.r.n. 13.Imdur 30 mg p.o. daily. 14.Combivent q.i.d. and DuoNeb q.i.d. and p.r.n. 15.[place] 10 mg t.i.d. 16.Neurontin 300 mg p.o. b.i.d. 17.Advair 5 one puff b.i.d. 18.Florinef 0.1 p.o. b.i.d. 19.Zetia 10 mg p.o. daily. 20.Lexapro 20 mg. 21.Multaq 400 mg a.c. b.i.d. 22.Periactin 4 mg p.o. t.i.d. 23.Plavix 75 mg p.o. daily. 24.Tenormin 25 mg p.o. b.i.d. 25.Aspirin 81 mg p.o. daily. ALLERGIES: VENTOLIN, MORPHINE, OXYCODONE, PENICILLIN, PREDNISONE, LYRICA. FAMILY HISTORY: History of CAD, cancer, hypertension, alcohol in the family. SOCIAL HISTORY: History of alcohol. History of smoking. REVIEW OF SYSTEMS: ENT: Diminished hearing or vision. CARDIOVASCULAR: No angina. RESPIRATORY: As mentioned earlier. GI: No nausea. : No dysuria. NERVOUS SYSTEM: As mentioned earlier. ALLERGY/IMMUNOLOGY: No asthma. MUSCULOSKELETAL: As mentioned earlier. HEMATOLOGY/ONCOLOGY: No history of anemia. ENDOCRINE: As mentioned earlier. CONSTITUTIONAL: As mentioned earlier. DERMATOLOGY: Negative. RHEUMATOLOGY: Negative. PSYCHIATRIC: As mentioned earlier. PHYSICAL EXAM: Patient is alert, oriented x3. The pulse is 118, blood pressure 160/94, respirations 30, temperature normal. Pulse ox 100% on BiPAP. HEENT: Conjunctivae normal. Oral mucosa moist. Breathing efforts are markedly increased. Patient is on BiPAP. Neck is no jugular venous distention. No carotid bruit. No lymph node enlargement. CARDIOVASCULAR: S1, S2. RESPIRATORY: Breath sounds diminished in the bases. Bilateral scattered rhonchi and coarse crackles bilaterally. Breathing efforts are markedly increased. Expiratory wheezing also present. ABDOMEN: Soft, scaphoid, nontender. LEGS: No edema, no swelling. NERVOUS SYSTEM: Higher function as mentioned, moves all 4 limbs. No focal motor deficits. LYMPHATICS: No lymphadenopathy in the neck, axillae, groin. SKIN: No ulcer, rash, bleeding. LABS: WBC 10.5, hemoglobin 12.4, and creatinine 0.4. ABG showed pH of 7.31, pCO2 of 79, and PO2 of 247. ASSESSMENT: 1. Acute hypoxic hypercapnic respiratory failure with chronic obstructive pulmonary disease acute exacerbation and as well as acute purulent tracheobronchitis. 2. Continued ongoing nicotine dependence. 3. Mild protein calorie malnutrition. 4. History of asthma, chronic obstructive pulmonary disease. 5. History of coronary artery disease. 6. Cerebrovascular accident, transient ischemic attack. 7. Fibromyalgia. 8. Gastroesophageal reflux disease. 9. Hypertension. 10.Hyperlipidemia. 11.History of myocardial infarction. 12.History of seizure disorder. 13.Chronic hypoxic respiratory failure on 2 L nasal cannula. 14.History of right lung cancer treated at [facility] previously. 15.History of transient ischemic attack. 16.History of migraine. 17.History of coronary artery disease, stent. 18.History anxiety, depression. RECOMMENDATIONS AND DISCUSSION: This 57-year-old woman who presented with multiple complex medical issues, will monitor the patient closely. Continue the current management, symptomatic treatment. Will initiate broad-spectrum IV antibiotics, otherwise I would also recommend intensive bronchodilators. Patient is ALLERGIC TO STEROIDS so we will continue to monitor and further recommendations to follow. Will closely follow with Dr. Chin. Prognosis guarded. Smoking cessation advice has been given. Further recommendations to follow. MMODL / IJN: [id number] / MTDHomar
[2018-01-20] MEDS ORDERED: HYDROcodone/APAP 10-325MG 1 EACH TAB PO ONE (19:30)
[2018-01-20] MEDS ORDERED: IPRATROPIUM 0.5 MG/2.5 ML NEBU INHALATION SCH (20:00)
[2018-01-20] MEDS: ATENOLOL 25 MG TAB PO SCH (20:48)
[2018-01-20] MEDS: FLUDROCORTISONE 0.1 MG TAB PO SCH (20:48)
[2018-01-20] MEDS: GABAPENTIN 300 MG CAP PO SCH (20:48)
[2018-01-20] MEDS: HEPARIN SODIUM,PORCINE 5,000 UNIT/ML 1 ML VIAL SQ SCH (20:48)
[2018-01-20] MEDS: DRONEDARONE 400 MG TAB PO SCH (20:48)
[2018-01-20] MEDS: RANOLAZINE 500 MG TAB.ER.12H PO SCH (20:49)
[2018-01-20] MEDS: CYPROHEPTADINE 4 MG TABLET PO SCH (20:49)
[2018-01-20] MEDS ORDERED: amLODIPine 5 MG TAB PO STA (20:51)
[2018-01-20] MEDS ORDERED: ISOSORBIDE MONONITRATE ER 30 MG TAB.ER.24H PO STA (20:54)
[2018-01-20] MEDS ORDERED: cloNIDine HCL 0.1 MG TAB PO SCH (21:00)
[2018-01-20] MEDS ORDERED: amLODIPine 5 MG TAB PO SCH (21:00)
[2018-01-20 21:07] LABS: Glucose,Whole Blood 139 mg/dL (75-99)
[2018-01-20] MEDS: FORMOTEROL FUMARATE 20 MCG/2 ML NEBU INHALATION SCH (21:14)
[2018-01-20] MEDS: BUDESONIDE 0.5 MG/2 ML NEBU INHALATION SCH (21:14)
[2018-01-20] MEDS: IPRATROPIUM-ALBUTEROL 3 ML NEB INHALATION SCH (21:14)
[2018-01-20] MEDS: LORazepam 0.5 MG TAB PO PRN (21:41)
[2018-01-20] MEDS ORDERED: PROPOFOL 100 ML IV ONE (22:48)
[2018-01-20] MEDS: PROPOFOL 1,000 MG in EMPTY BAG 1 BAG IV SCH (22:50)
--- NOTE | 2018-01-20 23:29 | XR ---
EXAMINATION TYPE: XR chest 1V portable DATE OF EXAM: 01/20/2018 COMPARISON: Today HISTORY: Intubation TECHNIQUE: Single frontal view of the chest is obtained. FINDINGS: Endotracheal tube is 2.5 cm from the yamil. There is a mild infiltrate in the periphery o f the right upper lobe. There is left side central venous catheter with the tip in the superior vena cava. Cervical spine fusion surgery is noted. There is slight blunting of right costophrenic angle. T here is no heart failure. IMPRESSION: Endotracheal tube is in fairly good position. There is an infiltrate in the periphery of the right upper lobe that is new compared to exam earlier today. No heart failure. Stable small righ t pleural effusion.
[2018-01-20 23:30] LABS: Glucose,Whole Blood 140 mg/dL (75-99)
[2018-01-20 23:36] LABS: Hemoglobin A1C 5.7 % (4.0-6.0)
[2018-01-20 23:39] LABS: ABG PH 7.31 (7.35-7.45)
[2018-01-20 23:40] LABS: ABG Base Excess 6.6 mmol/L; ABG HCO3 34 mmol/L (21-25); ABG Oxygen Saturation 92.7 % (94-97); ABG PCO2 71 mmHg (35-45); ABG PO2 71 mmHg (83-108)
--- NOTE | 2018-01-20 23:40 | XR ---
EXAMINATION TYPE: XR chest 1V DATE OF EXAM: 01/20/2018 COMPARISON: Today HISTORY: Tube placement TECHNIQUE: Single frontal view of the chest is obtained. FINDINGS: Endotracheal tube is 2.5 cm from the yamil. There is nasogastric tube in good position. C ervical spine fusion surgery is noted. There are chest leads. There is left-sided central venous cath eter with the tip in the superior vena cava. There is no pneumothorax. There is some tubing over the right upper chest that is producing some artifact. There is blunting of right costophrenic angle. IMPRESSION: Artifact over the right chest. I do not see definite infiltrate in the right lung. There is stable Right pleural effusion compared to earlier exam. Nasogastric tube appears in good position . No heart failure.
[2018-01-20] MEDS: HYDROcodone/APAP 10-325MG 1 EACH TAB PO SCH (23:53)
[2018-01-21] MEDS ORDERED: methylPREDNISolone SOD SUCCI 125 MG/2 ML VIAL IV SCH
[2018-01-21] MEDS: AZTREONAM 1 GM in SODIUM CHLORIDE 0.9% 50 ML IVPB SCH ×4 (00:09→23:25)
[2018-01-21] MEDS: DEXAMETHASONE SOD PHOSPHATE 4 MG/ML 1 ML VIAL IV SCH ×5 (00:10→23:25)
[2018-01-21] MEDS: CHLORHEXIDINE GLUCONATE 15 ML CUP MUCOUS MEM SCH ×3 (01:54→20:27)
[2018-01-21 05:04] LABS: Anisocytosis Slight; Basophils % (A) 0 %; Eosinophils % (A) 1 %; HCT 37.4 % (34.0-46.0); HGB 11.7 gm/dL (11.4-16.0); Hypochromasia Slight; Lymphocytes # (A) 0.4 k/uL (1.0-4.8); Lymphocytes % (A) 5 %; MCH 29.1 pg (25.0-35.0); MCHC 31.4 g/dL (31.0-37.0); MCV 92.5 fL (80.0-100.0); Mean Platelet Volume 7.9; Monocytes # (A) 0.2 k/uL (0-1.0); Monocytes % (A) 3 %; Neutrophils # (A) 6.1 k/uL (1.3-7.7); Neutrophils % (A) 90 %; Platelet Count 224 k/uL (150-450); RBC 4.04 m/uL (3.80-5.40); RDW 16.8 % (11.5-15.5); WBC 6.8 k/uL (3.8-10.6)
[2018-01-21] MEDS: HYDROcodone/APAP 10-325MG 1 EACH TAB PO SCH (05:09)
[2018-01-21] MEDS ORDERED: ACETAMINOPHEN IV (For NPO) 1,000 MG in EMPTY BAG 1 BAG IVPB PRN (05:15)
[2018-01-21 05:22] LABS: Anion Gap 12 mmol/L; Blood Urea Nitrogen 19 mg/dL (7-17); Calcium 9.3 mg/dL (8.4-10.2); Carbon Dioxide 33 mmol/L (22-30); Chloride 98 mmol/L (98-107); Glucose 98 mg/dL (74-99); Potassium 3.9 mmol/L (3.5-5.1); Sodium 143 mmol/L (137-145)
[2018-01-21] MEDS: PROPOFOL 1,000 MG in EMPTY BAG 1 BAG IV SCH ×3 (06:25→17:56)
[2018-01-21] MEDS ORDERED: PANTOPRAZOLE 40 MG TABLET PO SCH ×2 (07:30)
--- NOTE | 2018-01-21 07:31 | XR ---
EXAMINATION: XR chest 1V portable DATE AND TIME: 01/21/2018 6:26 AM ORDERING PROVIDER: Suhas Chin MD~[id number] CLINICAL INDICATION: resp failure TECHNIQUE: AP portable upright COMPARISON: 01/20/2018 at 11:26 PM DESCRIPTION: ET tube tip superimposed over the mid trachea. Left subclavian Port-A-Cath tip superimposed over the cavoatrial junction. Small right pleural effusion. No pneumothorax. Chronic right-sided cicatrizing changes redemonstrated; no definite acute pulmonary process. Cardiac silhouette and bones and soft tissues are unremarkable. IMPRESSION: STABLE APPEARANCE.
[2018-01-21] MEDS: IPRATROPIUM-ALBUTEROL 3 ML NEB INHALATION SCH ×4 (07:59→19:51)
[2018-01-21] MEDS: BUDESONIDE 0.5 MG/2 ML NEBU INHALATION SCH (07:59)
[2018-01-21] MEDS: FORMOTEROL FUMARATE 20 MCG/2 ML NEBU INHALATION SCH ×2 (07:59→19:51)
[2018-01-21 08:13] LABS: ABG Base Excess 9.2 mmol/L; ABG HCO3 34 mmol/L (21-25); ABG Oxygen Saturation 99.6 % (94-97); ABG PCO2 60 mmHg (35-45); ABG PH 7.37 (7.35-7.45); ABG PO2 234 mmHg (83-108); ABG TCO2 36 mmol/L (19-24)
[2018-01-21] MEDS: DRONEDARONE 400 MG TAB PO SCH ×2 (08:56→17:08)
[2018-01-21] MEDS ORDERED: ISOSORBIDE MONONITRATE ER 30 MG TAB.ER.24H PO SCH (09:00)
[2018-01-21] MEDS: ASPIRIN 81 MG PO SCH (09:17)
[2018-01-21] MEDS: ATENOLOL 25 MG TAB PO SCH ×2 (09:17→20:26)
[2018-01-21] MEDS: HEPARIN SODIUM,PORCINE 5,000 UNIT/ML 1 ML VIAL SQ SCH ×2 (09:18→20:27)
[2018-01-21] MEDS: GABAPENTIN 300 MG CAP PO SCH ×2 (09:18→20:27)
[2018-01-21] MEDS: ESCITALOPRAM 20 MG TAB PO SCH (09:18)
[2018-01-21] MEDS: CLOPIDOGREL 75 MG TAB PO SCH (09:18)
[2018-01-21] MEDS: EZETIMIBE 10 MG TAB PO SCH (09:18)
[2018-01-21] MEDS: FLUDROCORTISONE 0.1 MG TAB PO SCH ×2 (09:18→20:26)
[2018-01-21] MEDS: CYPROHEPTADINE 4 MG TABLET PO SCH ×3 (09:18→20:27)
[2018-01-21] MEDS: ATORVASTATIN 20 MG TAB PO SCH (09:18)
[2018-01-21] MEDS: lamoTRIgine 100 MG TAB PO SCH (09:19)
[2018-01-21] MEDS: MONTELUKAST 10 MG TAB PO SCH (09:19)
[2018-01-21] MEDS: LACTULOSE 20 GM/30 ML CUP PO SCH (09:19)
[2018-01-21] MEDS: NICOTINE 14MG/24HR PATCH TRANSDERM SCH (09:19)
[2018-01-21] MEDS: RANOLAZINE 500 MG TAB.ER.12H PO SCH ×2 (09:20→20:42)
[2018-01-21] MEDS: POTASSIUM CHLORIDE ER 20 MEQ TAB.ER PO SCH (09:20)
[2018-01-21] MEDS: PANTOPRAZOLE 40 MG/10 ML VIAL IVP SCH (09:20)
[2018-01-21] MEDS ORDERED: SODIUM CHLORIDE 0.9% 1,000 ML IV ONE (09:24)
[2018-01-21] MEDS: SODIUM CHLORIDE 0.9% 1,000 ML IV SCH ×2 (09:50→20:27)
[2018-01-21] MEDS: LORazepam 0.5 MG TAB PO PRN ×2 (09:59→17:08)
[2018-01-21] MEDS: Lubiprostone [Amitiza] PO SCH (09:59)
[2018-01-21 10:54] LABS: Glucose,Whole Blood 102 mg/dL (75-99)
--- NOTE | 2018-01-21 11:43 | P.CNPUL ---
History of Present Illness Consult date: 01/21/18 Reason for consult: other (Acute hypoxic and hypercapnic respiratory failure) Chief complaint: Shortness of breath History of present illness: This is a 57-year-old female with history of severe underlying COPD, O2 dependent, not prednisone dependent, history of lung cancer previous lobectomy on the right side, followed by chemotherapy and radiation therapy done in [facility]. is being followed closely by her oncologist, does not follow up on a regular basis with a third officer. Although back in November, patient had an episode of respiratory failure requiring intubation and mechanical ventilation, and I happen to take care of the patient, she was on mechanical ventilation for a couple of days, she was eventually discharged home within a few days. Patient presented this time with a similar resident patient mostly symptoms of increased shortness of breath, and some vague right-sided chest pain. Seen in the ER, CT angiogram of the chest was negative for pulmonary embolism, but it showed mostly postoperative changes in the right lung , possibility of pneumonia is not entirely ruled out, possibility of recurrent lung cancer is not entirely ruled out. Patient was admitted to the medical floor, and shortly after she arrived to the medical floor, her pulmonary status deteriorated. Patient developed hypoxic and hypercapnic respiratory failure, I was notified by the nurses taking care of the patient that she was struggling to breathe. Hence I recommended immediate intubation, and she was admitted to the intensive care unit. Patient has been on mechanical ventilation since last night, her ABG significantly improved. Her chest x-ray showed mostly chronic changes in the right upper lobe, some pleural pulmonary scarring noted, no clear -cut acute process was noted. Endotracheal tube was noted to be intact. Nasogastric tube was also in the proper position. ABG this morning showed a pO2 of 234 pCO2 of 60 0 pH of 7.37. Hence I changed her ventilator settings and she is presently now on FiO2 of 35%, tidal volume of 325 assist control rate of 18, and PEEP is 7. Patient is on propofol, she is hemodynamically stable, not requiring any pressors. And there is clearly no evidence of clear- cut infection at this point. CBC was noted to be relatively normal. Basic metabolic profile and renal profile were normal except for a relatively elevated bicarb level which is expected considering the patient's underlying COPD. Review of Systems ROS unobtainable: due to endotracheal tube (No family members available) Past Medical History Past Medical History: Asthma, Coronary Artery Disease (CAD), Cancer, Chest Pain / Angina, COPD, CVA/TIA, Fibromyalgia, GERD/Reflux, Hyperlipidemia, Hypertension , Myocardial Infarction (FL), Osteoarthritis (OA), Respiratory Disorder, Seizure Disorder, Syncope Additional Past Medical History / Comment(s): Chronic respiratory failure, home O2 2L/NC ATC, R Lung cancer with surgery/chemo/radiation about 1.5 yrs ago (tx at [facility]), bronchitis, FL-many years ago-exact date unknown, TIA, migraines, last seizure 2012, DJD, chronic back/cervical pain, limited ROM in neck, R knee pain/derangement, osteoporosis, IBS, benign colon lesion, diarrhea- chronic, hiatal hernia, insomnia, hypoglycemia, rhinitis, TMJ syndrome, R hand thumb tendon surgery-limited ROM and pt is R handed. Brother and caregiver state that pt has a very good apetite and eats well but continues to lose weight. Caregiver also jsut learned and is concerned that pt's last BM was a week ago. Last Myocardial Infarction Date:: unkn-years ago History of Any Multi-Drug Resistant Organisms: None Reported Past Surgical History: Section, Heart Catheterization, Heart Catheterization With Stent, Hysterectomy Additional Past Surgical History / Comment(s): R lung lobectomy, mediport, R rib 3 benign tumors, liver bx-nonmalignant tumor, PCI with stent 2011, EGDs, colonoscopy, cervical plate, knee arthroscopy-laterallity unknown, R carpal tunnel release, tendons cut toes bilateral feet, bilateral great toes bunionectomy/ingrown toenails, R thumb tendon surgery. Past Anesthesia/Blood Transfusion Reactions: No Reported Reaction Date of Last Stent Placement:: 08/03/12 Past Psychological History: Anxiety, Depression Additional Psychological History / Comment(s): Pt resides alone in her apartment. Her neiceTess is her care program resident and is with her a couple hours to half the day, daily. volleyball assistant coach assists with laundry, meals, medications and cleans. Pt no longer drives. She has a friend who takes her to her doctors appts or family will give her rides. She uses a cane to ambulate and has a walker. She also has home Oxygen/nebulizer. Smoking Status: Current every day smoker Past Alcohol Use History: None Reported Additional Past Alcohol Use History / Comment(s): Pt started smoking in 1975 and is a ppd smoker. Past Drug Use History: None Reported Additional Drug Use History / Comment(s): Pt smokes marijuana a couple times a week. - Past Family History Father History Unknown: Yes Additional Family Medical History / Comment(s): Father was an alcoholic and was murdered at the age of 52 yrs. Mother Family Medical History: Cancer, Coronary Artery Disease (CAD), Hypertension Additional Family Medical History / Comment(s): Mother of metastatic cancer -primary unknown to family. Medications and Allergies Home Medications Medication Instructions Recorded Confirmed Type Aspirin 81 mg PO DAILY 11/16/17 01/20/18 History Clopidogrel [Plavix] 75 mg PO DAILY 11/16/17 01/20/18 History Ezetimibe [Zetia] 10 mg PO DAILY 11/16/17 01/20/18 History Fludrocortisone [Florinef] 0.1 mg PO BID 11/16/17 01/20/18 History Fluticasone/Salmeterol [Advair 1 puff INHALATION RT-DAILY 11/16/17 01/20/18 History 500-50 Diskus] HYDROcodone/APAP 10-325MG [[place] 1 tab PO TID 11/16/17 01/20/18 History 10-325] Ipratropium/Albuterol Sulfate 1 puff INHALATION RT-QID 11/16/17 01/20/18 History [Combivent Respimat Inhaler] Isosorbide Mononitrate ER [Imdur] 30 mg PO DAILY 11/16/17 01/20/18 History LORazepam [Ativan] 0.5 mg PO QID PRN 11/16/17 01/20/18 History Lubiprostone [Amitiza] 8 mcg PO DAILY 11/16/17 01/20/18 History Montelukast [Singulair] 10 mg PO DAILY 11/16/17 01/20/18 History Nitroglycerin Sl Tabs [Nitrostat] 0.4 mg SUBLINGUAL Q5M PRN 11/16/17 01/20/18 History Pitavastatin Calcium [Livalo] 4 mg PO DAILY 11/16/17 01/20/18 History Potassium Chloride ER [K-Dur 20] 20 meq PO DAILY 11/16/17 01/20/18 History Ranolazine [Ranexa] 500 mg PO BID 11/16/17 01/20/18 History lamoTRIgine [LaMICtal] 200 mg PO DAILY 11/16/17 01/20/18 History Atenolol [Tenormin] 25 mg PO BID #60 tab 11/21/17 01/20/18 Rx Ipratropium-Albuterol Nebulize 3 ml INHALATION RT-QID #120 11/21/17 01/20/18 Rx [Duoneb 0.5 mg-3 mg/3 ml Soln] ampul.neb Lactulose [Cephulac] 30 gm PO DAILY #300 ml 11/21/17 01/20/18 Rx amLODIPine [Norvasc] 5 mg PO BID #60 tab 11/21/17 01/20/18 Rx cloNIDine HCL [Catapres] 0.1 mg PO BID #60 tab 11/21/17 01/20/18 Rx Cyproheptadine HCl [Periactin] 4 mg PO TID 01/20/18 01/20/18 History Dronedarone [Multaq] 400 mg PO AC-BID 01/20/18 01/20/18 History Escitalopram [Lexapro] 20 mg PO DAILY 01/20/18 01/20/18 History Gabapentin [Neurontin] 300 mg PO BID 01/20/18 01/20/18 History Omeprazole [PriLOSEC] 40 mg PO BID 01/20/18 01/20/18 History Allergies Allergy/AdvReac Type Severity Reaction Status Date / Time fentanyl AdvReac Unknown Verified 01/20/18 15:53 morphine AdvReac Unknown Verified 01/20/18 15:53 oxycodone AdvReac Unknown Verified 01/20/18 15:53 Penicillins AdvReac Unknown Verified 01/20/18 15:53 prednisone AdvReac Unknown Verified 01/20/18 15:53 pregabalin [From Lyrica] AdvReac Unknown Verified 01/20/18 15:53 Physical Exam Vitals: Vital Signs Temp Pulse Pulse Resp BP BP Pulse Ox 01/21/18 11:31 91 01/21/18 11:00 93 18 129/70 99 01/21/18 10:30 96 18 111/66 99 01/21/18 10:00 98 18 142/77 98 01/21/18 09:30 98 18 154/75 98 01/21/18 09:00 98 18 120/78 98 01/21/18 08:39 98 01/21/18 08:30 97 18 151/81 100 01/21/18 08:29 98 01/21/18 08:14 98 01/21/18 08:00 98.7 F 96 18 128/73 100 01/21/18 07:30 95 18 148/79 100 01/21/18 07:00 96 21 132/74 100 01/21/18 06:30 96 20 149/81 100 01/21/18 06:00 98 25 H 145/80 100 01/21/18 05:30 98 19 128/71 100 01/21/18 05:00 101 H 26 H 145/76 99 01/21/18 04:30 98 21 129/68 100 01/21/18 04:00 100.5 F H 97 21 136/74 100 01/21/18 03:30 96 27 H 127/71 100 01/21/18 03:00 96 20 121/68 100 01/21/18 02:30 95 18 131/75 100 01/21/18 02:00 93 20 109/67 100 01/21/18 01:30 93 20 114/64 100 01/21/18 01:05 92 19 126/66 100 01/21/18 00:30 92 18 112/66 100 01/21/18 00:00 98.6 F 90 18 113/60 100 01/20/18 23:51 90 18 128/61 100 01/20/18 23:50 90 18 128/61 100 01/20/18 23:40 91 17 131/67 01/20/18 23:33 98.5 F 93 18 127/63 93 L 01/20/18 23:30 93 18 107/77 100 01/20/18 23:20 94 17 109/64 100 01/20/18 23:10 98 19 84/53 100 01/20/18 23:00 98.5 F 101 H 17 110/69 100 01/20/18 22:50 103 H 106/63 100 01/20/18 22:40 166/72 100 01/20/18 22:36 100 01/20/18 21:44 116 H 33 H 152/101 99 01/20/18 21:43 118 H 01/20/18 21:37 116 H 01/20/18 21:20 119 H 29 H 203/97 98 01/20/18 21:18 116 H 01/20/18 20:20 113 H 33 H 01/20/18 19:53 196/86 01/20/18 19:38 110 H 17 200/93 100 01/20/18 19:34 98.2 F 109 H 24 224/104 98 01/20/18 19:00 97.8 F 106 H 26 H 178/88 98 01/20/18 17:32 112 H 28 H 166/77 99 01/20/18 15:55 117 H 28 H 143/67 98 01/20/18 15:16 118 H 01/20/18 15:12 125 H 30 H 167/94 100 01/20/18 15:07 108 H 24 155/71 100 01/20/18 14:56 108 H 01/20/18 14:20 97 F L 108 H 24 155/71 99 Intake and Output 01/20/18 01/21/18 01/21/18 22:59 06:59 14:59 Intake Total 60 086.062 3313.150 Output Total 790 145 Balance 60 16.863 1519.150 Intake: IV 750 1500 Aztreonam 1 gm In Sodium 50 100 Chloride 0.9% 50 ml @ 100 mls/hr IVPB Q8HR SANDRA Rx# :[id number] Sodium Chloride 0.9% 1, 300 000 ml @ 100 mls/hr IV . Q10H SANDRA Rx#:[id number] Sodium Chloride 0.9% 1, 700 100 000 ml @ 100 mls/hr IV . Q10H STA Rx#:[id number] Sodium Chloride 0.9% 1, 1000 000 ml @ 999 mls/hr IV . Q1H1M ONE Rx#:[id number] Intake, IV Titration 56.863 44.150 Amount Propofol 1,000 mg In 56.863 44.150 Empty Bag 1 bag @ Titrate IV .Q0M SANDRA Rx#: [id number] Oral 60 Other 120 Output: Gastric Drainage 450 Urine 340 145 Other: Voiding Method Bedpan Indwelling Catheter Indwelling Catheter Weight 38.5 kg 37.6 kg 37.6 kg Physical Exam: Revealed a 57-year-old female, intubated, on mechanical ventilation. Patient looks cachectic, and chronically ill, frail. Head: Atraumatic, normocephalic, Eyes: PERRLA, EOMI, no icterus. HEENT: Dry mucous membranes. [Neck is supple.] [No neck masses.] [No thyromegaly.] [No JVD.] Endotracheal tube seems to be intact. Chest: [Diminished breath sounds at the bases, some wheezing bilaterally, no chest wall tenderness, symmetrical expansion noted. Cardiac Exam: [Normal S1 and S2, no S3 gallop, no murmur.] Abdomen: [Soft, nontender, no megaly, no rebound, no guarding, normal bowel sounds.] Extremities: [No clubbing, no edema, no cyanosis.] Neurological Exam: Cannot be assessed, patient is sedated, on propofol. Psychiatric: Could not be assessed while on mechanical ventilation. Musculoskeletal: Could not be fully assessed. Results - Laboratory Findings CBC and BMP: 01/21/18 04:40 01/21/18 04:40 ABG ABG pH 7.37 (7.35-7.45) 01/21/18 08:03 ABG pCO2 60 mmHg (35-45) H 01/21/18 08:03 ABG pO2 234 mmHg (83-108) H 01/21/18 08:03 ABG O2 Saturation 99.6 % (94-97) H 01/21/18 08:03 PT/INR, D-dimer PT 11.1 sec (9.0-12.0) 01/20/18 14:25 INR 1.2 (<1.2) H 01/20/18 14:25 D-Dimer 0.79 mg/L FEU (<0.60) H 01/20/18 14:25 Abnormal lab findings: Abnormal Labs 01/20/18 01/20/18 01/20/18 14:25 14:25 14:25 RDW 16.7 H Neutrophils # 9.6 H Lymphocytes # 0.3 L INR APTT D-Dimer ABG pH ABG pCO2 ABG pO2 ABG HCO3 ABG Total CO2 ABG O2 Saturation Chloride 92 L Carbon Dioxide 36 H BUN 20 H Creatinine 0.40 L Glucose 122 H POC Glucose (mg/dL) CK-MB (CK-2) 3.0 H* 01/20/18 01/20/18 01/20/18 14:25 14:50 21:05 RDW Neutrophils # Lymphocytes # INR 1.2 H APTT 19.2 L D-Dimer 0.79 H ABG pH 7.31 L ABG pCO2 79 H* ABG pO2 247 H ABG HCO3 40 H* ABG Total CO2 42 H ABG O2 Saturation 99.6 H Chloride Carbon Dioxide BUN Creatinine Glucose POC Glucose (mg/dL) 139 H CK-MB (CK-2) 01/20/18 01/20/18 01/21/18 23:20 23:27 04:40 RDW 16.8 H Neutrophils # Lymphocytes # 0.4 L INR APTT D-Dimer ABG pH 7.31 L ABG pCO2 71 H* ABG pO2 71 L ABG HCO3 34 H ABG Total CO2 ABG O2 Saturation 92.7 L Chloride Carbon Dioxide BUN Creatinine Glucose POC Glucose (mg/dL) 140 H CK-MB (CK-2) 01/21/18 01/21/18 01/21/18 04:40 08:03 10:53 RDW Neutrophils # Lymphocytes # INR APTT D-Dimer ABG pH ABG pCO2 60 H ABG pO2 234 H ABG HCO3 34 H ABG Total CO2 36 H ABG O2 Saturation 99.6 H Chloride Carbon Dioxide 33 H BUN 19 H Creatinine 0.30 L Glucose POC Glucose (mg/dL) 102 H CK-MB (CK-2) - Diagnostic Findings Chest x-ray: image reviewed CT scan - chest: image reviewed (As noted in HPI.) Assessment and Plan Assessment: 1 acute hypoxic and hypercapnic respiratory failure requiring intubation and mechanical ventilation secondary to COPD, doubt underlying pneumonia. 2 history of bronchogenic carcinoma, previous lobectomy followed by radiation and chemotherapy in the last few years. 3 history of coronary artery disease 4 history of fibromyalgia 5 history of benign essential hypertension 6 history of previous FL 7 history of seizure disorder, last seizure was in 2012. 8 history of GERD 9 history of migraine cephalgia. 10 history of irritable bowel syndrome with chronic diarrhea. And intermittent constipation. Recommendation: Patient will remain on mechanical ventilation, continue bronchodilators, steroids, empiric antibiotics, nutritional support, enteral feeding, GI and DVT prophylaxis, we'll address weaning and possibly extubation in the next 24 hours. Patient is critically ill, critical care time is 45 minutes. Time with Patient: Greater than 30
[2018-01-21] MEDS: LEVOFLOXACIN 500MG-D5W PMX 500 MG in DEXTROSE/WATER 1 100ML.BAG IVPB SCH (15:50)
--- NOTE | 2018-01-21 16:02 | PN ---
PROGRESS NOTE DATE OF SERVICE: 01/21/2018 This 57-year-old woman who was admitted with COPD acute exacerbation also had acute hypoxic hypercapnic respiratory failure. The patient initially was tried on BiPAP. Subsequently patient had significant respiratory acidosis and the patient is mechanically intubated. Patient was clinically sedated. The patient closely monitored. Dr. Chin is following the patient closely. Patient's current vent settings are 325 tidal volume, 34% FiO2 and 7 of PEEP and with 18 rate and the saturation 100%, but apparently the patient is sedated with 70 mL of propofol. Patient also noted to have some blood pressure changes which is being closely monitored. PAST MEDICAL HISTORY: Reviewed. REVIEW OF SYSTEMS: Could not be taken. The patient mechanically. CURRENT MEDICATIONS: 1. Tylenol p.r.n. 2. DuoNeb q.i.d. and p.r.n. 3. Aspirin 81 mg daily. 4. Tenormin 25 mg p.o. b.i.d. 5. Lipitor 20 mg. 6. Aztreonam 1 g IV q.8h. 7. Pulmicort 1 mg b.i.d. 8. Peridex 15 mL b.i.d. 9. Plavix 75 daily. 10.Decadron. 11.Multaq. 12.Lexapro. 13.Florinef 0.1 b.i.d. 14.Perforomist 20 mg b.i.d. 16.Lamictal. 17.Levaquin. 18.Singulair. 19.Habitrol. 20.Nitrostat. 21.Protonix. 22.Ranexa. 23.P.r.n. medications. PHYSICAL EXAM: Patient is mechanically ventilated and sedated. Ventilation settings are noted. HEENT: Conjunctivae normal. Oral mucosa moist. Neck is no jugular venous distention. No carotid bruit. No lymph node enlargement. CARDIOVASCULAR: S1, S2. No S3, no S4. RESPIRATORY: Breath sounds diminished in the bases. Bilateral scattered rhonchi and crackles. Patient mechanically ventilated. ABDOMEN: Soft, scaphoid, nontender. No mass palpable. LEGS: No edema, no swelling. NERVOUS SYSTEM: Patient is mechanically sedated. SKIN: No ulcer, rash, bleeding. LYMPHATICS: No lymphadenopathy in the neck, axillae, groin. JOINTS: No active deforming arthropathy. LABS: At this time shows WBC 6.8, hemoglobin 11.7, ABGs noted. pH is currently 7.37, pCO2 is still elevated at 60 and CO2 is 33 and the BMP and chest x-ray noted. ASSESSMENT: 1. Chronic obstructive pulmonary disease acute exacerbation with acute hypoxic hypercarbic respiratory failure as well as acute purulent tracheobronchitis. 2. Continued ongoing nicotine dependence. 3. Mild protein calorie malnutrition. 4. History of asthma, chronic obstructive pulmonary disease. 5. History of coronary artery disease. 6. History of cerebrovascular accident, transient ischemic attack. 7. Fibromyalgia. 8. Gastroesophageal reflux disease. 9. Hypertension. 10.Hyperlipidemia. 11.History of myocardial infarction. 12.History of seizure disorder. 13.History of chronic hypoxic respiratory failure on 2 L nasal cannula. 14.History of right lung cancer treated at [facility] previously. 15.History of transient ischemic attack. 16.History of migraine. 17.History of coronary artery disease, stent. 18.History of anxiety, depression. RECOMMENDATIONS AND DISCUSSION: I recommend to continue current management, continue monitoring and continue symptomatic treatment. Continue the bronchodilators, continue empiric antibiotics. As mentioned earlier the most recent chest x-ray today did not show any evidence of any pneumonia. Otherwise closely for Dr. Chin. Further weaning attempts by Dr. Chin. Continue the DVT prophylaxis and other medications. See orders for details. Guarded prognosis. Further recommendations to follow. MMODL / IJN: [id number] / INOCENCIA
[2018-01-21 17:32] LABS: Glucose,Whole Blood 122 mg/dL (75-99)
[2018-01-21] MEDS: BUDESONIDE 1 MG/2 ML NEBU INHALATION SCH (19:51)
[2018-01-21 23:25] LABS: Glucose,Whole Blood 121 mg/dL (75-99)
[2018-01-22] MEDS: IPRATROPIUM-ALBUTEROL 3 ML NEB INHALATION SCH ×7 (00:04→23:52)
[2018-01-22] MEDS: LORazepam 0.5 MG TAB PO PRN ×2 (00:11→22:57)
[2018-01-22 04:49] LABS: Anion Gap 8 mmol/L; Blood Urea Nitrogen 18 mg/dL (7-17); Carbon Dioxide 28 mmol/L (22-30); Chloride 104 mmol/L (98-107); Glucose 154 mg/dL (74-99); Potassium 4.3 mmol/L (3.5-5.1); Sodium 140 mmol/L (137-145)
[2018-01-22 04:53] LABS: Anisocytosis Slight; Basophils % (A) 0 %; Eosinophils % (A) 0 %; HCT 35.8 % (34.0-46.0); HGB 11.1 gm/dL (11.4-16.0); Hypochromasia Moderate; Lymphocytes # (A) 0.4 k/uL (1.0-4.8); Lymphocytes % (A) 7 %; MCH 29.5 pg (25.0-35.0); MCHC 30.9 g/dL (31.0-37.0); MCV 95.5 fL (80.0-100.0); Mean Platelet Volume 7.6; Monocytes # (A) 0.3 k/uL (0-1.0); Monocytes % (A) 5 %; Neutrophils # (A) 4.9 k/uL (1.3-7.7); Neutrophils % (A) 87 %; Platelet Count 195 k/uL (150-450); RBC 3.75 m/uL (3.80-5.40); RDW 17.2 % (11.5-15.5); WBC 5.6 k/uL (3.8-10.6)
[2018-01-22 05:31] LABS: Glucose,Whole Blood 152 mg/dL (75-99)
[2018-01-22] MEDS: SODIUM CHLORIDE 0.9% 1,000 ML IV SCH ×2 (05:38→16:15)
[2018-01-22] MEDS: PROPOFOL 1,000 MG in EMPTY BAG 1 BAG IV SCH ×2 (05:38)
[2018-01-22] MEDS: DEXAMETHASONE SOD PHOSPHATE 4 MG/ML 1 ML VIAL IV SCH ×3 (05:38→18:14)
[2018-01-22 07:50] LABS: ABG Base Excess 6.7 mmol/L; ABG HCO3 32 mmol/L (21-25); ABG Oxygen Saturation 96.6 % (94-97); ABG PCO2 51 mmHg (35-45); ABG PO2 87 mmHg (83-108); ABG TCO2 33 mmol/L (19-24)
[2018-01-22] MEDS: BUDESONIDE 1 MG/2 ML NEBU INHALATION SCH ×2 (08:00→19:07)
[2018-01-22] MEDS: FORMOTEROL FUMARATE 20 MCG/2 ML NEBU INHALATION SCH ×2 (08:00→19:07)
--- NOTE | 2018-01-22 08:23 | XR ---
EXAMINATION TYPE: XR chest 1V portable DATE OF EXAM: 01/22/2018 COMPARISON: 01/21/2018 HISTORY: Respiratory failure TECHNIQUE: Single frontal view of the chest is obtained. FINDINGS: ET tube tip superimposed over the mid trachea. Left subclavian Port-A-Cath tip superimpose d over the cavoatrial junction. Small right pleural effusion. No pneumothorax. Chronic right-sided ci catrizing changes redemonstrated. Cardiac silhouette and bones and soft tissues are unremarkable. Pos tsurgical changes overlying the cervical spine. IMPRESSION: No acute process.
[2018-01-22] MEDS: AZTREONAM 1 GM in SODIUM CHLORIDE 0.9% 50 ML IVPB SCH ×2 (08:33→16:14)
[2018-01-22] MEDS: ASPIRIN 81 MG PO SCH (08:34)
[2018-01-22] MEDS: ATENOLOL 25 MG TAB PO SCH ×2 (08:34→21:24)
[2018-01-22] MEDS: DRONEDARONE 400 MG TAB PO SCH ×2 (08:34→18:14)
[2018-01-22] MEDS: CYPROHEPTADINE 4 MG TABLET PO SCH ×3 (08:35→21:24)
[2018-01-22] MEDS: EZETIMIBE 10 MG TAB PO SCH (08:35)
[2018-01-22] MEDS: CHLORHEXIDINE GLUCONATE 15 ML CUP MUCOUS MEM SCH (08:35)
[2018-01-22] MEDS: ATORVASTATIN 20 MG TAB PO SCH (08:35)
[2018-01-22] MEDS: CLOPIDOGREL 75 MG TAB PO SCH (08:35)
[2018-01-22] MEDS: HEPARIN SODIUM,PORCINE 5,000 UNIT/ML 1 ML VIAL SQ SCH ×2 (08:36→21:24)
[2018-01-22] MEDS: lamoTRIgine 100 MG TAB PO SCH (08:36)
[2018-01-22] MEDS: ESCITALOPRAM 20 MG TAB PO SCH (08:36)
[2018-01-22] MEDS: GABAPENTIN 300 MG CAP PO SCH ×2 (08:36→21:24)
[2018-01-22] MEDS: MONTELUKAST 10 MG TAB PO SCH (08:37)
[2018-01-22] MEDS: LACTULOSE 20 GM/30 ML CUP PO SCH (08:37)
[2018-01-22] MEDS: FLUDROCORTISONE 0.1 MG TAB PO SCH ×2 (08:37→21:24)
[2018-01-22] MEDS: POTASSIUM CHLORIDE ER 20 MEQ TAB.ER PO SCH (08:38)
[2018-01-22] MEDS: Lubiprostone [Amitiza] PO SCH (08:38)
[2018-01-22] MEDS: PANTOPRAZOLE 40 MG/10 ML VIAL IVP SCH (08:38)
[2018-01-22] MEDS: RANOLAZINE 500 MG TAB.ER.12H PO SCH ×2 (08:39→21:24)
[2018-01-22] MEDS: NICOTINE 14MG/24HR PATCH TRANSDERM SCH (09:08)
--- NOTE | 2018-01-22 09:50 | P.PN ---
Subjective Progress Note Date: 01/22/18 Principal diagnosis: Respiratory failure secondary to severe COPD Progress note dated 01/22/2018 57-year-old female with history of acute hypoxemic respiratory failure secondary to severe COPD. She has a previous history of lung cancer with previous lobectomy on the right side followed by chemotherapy and radiation done at [facility]. She is apparently being followed closely by a oncologist does not see a motor adjuster on a regular basis. Back in November she had an episode of respiratory failure requiring intubation and mechanical ventilation and she was taken care of by my partner at that time. She was discharged within a few days. In addition to above, she has a history of a bronchitic bronchogenic carcinoma status post lobectomy radiation and chemotherapy CAD fibromyalgia essential hypertension previous myocardial infarction seizure disorder GERD and migraine cephalgia and irritable bowel syndrome. The patient is currently on the volume assist control mode with a rate of 18, tidal volume 325, FiO2 35% and PEEP of 7. The patient's blood gases show a PaO2 of 87 PaCO2 of 51 and pH 7.40. The patient is on propofol 70 mics per kilogram per minute saline at 100 mL an hour and vital AF at 40 with a goal of 40. She is a no CPR patient. She was intubated on the . She was admitted on the . Chest x-ray showed no acute process. Objective - Vital Signs Vital signs: Vital Signs Temp 97.9 F 01/22/18 08:00 Pulse 95 01/22/18 08:31 Resp 29 H 01/22/18 08:00 BP 140/79 01/22/18 08:00 Pulse Ox 97 01/22/18 08:00 Intake & Output 01/21/18 01/22/18 01/22/18 18:59 06:59 18:59 Intake Total 3028.635 1866.03 270 Output Total 600 475 75 Balance 2428.635 1391.03 195 Weight 37.6 kg 36.7 kg Intake: IV 2300 1200 200 Aztreonam 1 gm In Sodium 100 Chloride 0.9% 50 ml @ 100 mls/hr IVPB Q8HR SANDRA Rx# :[id number] Levofloxacin 500Mg-D5w 100 Pmx 500 mg In Dextrose/ Water 1 100ml.bag @ 100 mls/hr IVPB Q24H SANDRA Rx#: [id number] Sodium Chloride 0.9% 1, 1000 1200 200 000 ml @ 100 mls/hr IV . Q10H SANDRA Rx#:[id number] Sodium Chloride 0.9% 1, 100 000 ml @ 100 mls/hr IV . Q10H STA Rx#:[id number] Sodium Chloride 0.9% 1, 1000 000 ml @ 999 mls/hr IV . Q1H1M ONE Rx#:[id number] Intake, IV Titration 168.635 186.03 Amount Propofol 1,000 mg In 168.635 186.03 Empty Bag 1 bag @ Titrate IV .Q0M SANDRA Rx#: [id number] Tube Feeding 270 360 70 Other 290 120 Output: Gastric Drainage 200 Urine 400 475 75 Other: Voiding Method Indwelling Catheter Indwelling Catheter - Exam No acute distress, sedated, with an orally placed endotracheal tube and NG tube. HEENT examination is grossly unremarkable. Mucous membranes are moist. Neck supple. Full range of motion. No adenopathy thyromegaly or neck vein distention. Cardiovascular examination reveals regular rhythm rate. S1-S2 normal. No S3 or S4. No discernible murmur noted. Lungs reveal clear breath sounds. Her sounds are equal bilaterally. No distinct adventitious lung sounds were noted. Abdomen soft bowel sounds are heard. No masses or tenderness. Extremities are intact. No cyanosis clubbing or edema. Skin is without rash or lesion. Neurologic examination is difficult to assess. - Labs CBC & Chem 7: 01/22/18 04:24 01/22/18 04:24 Labs: Abnormal Lab Results - Last 24 Hours (Table) 01/21/18 01/21/18 01/21/18 Range/Units 10:53 17:28 23:21 RBC (3.80-5.40) m/uL Hgb (11.4-16.0) gm/dL MCHC (31.0-37.0) g/dL RDW (11.5-15.5) % Lymphocytes # (1.0-4.8) k/uL ABG pCO2 (35-45) mmHg ABG HCO3 (21-25) mmol/L ABG Total CO2 (19-24) mmol/L BUN (7-17) mg/dL Creatinine (0.52-1.04) mg/dL Glucose (74-99) mg/dL POC Glucose (mg/dL) 102 H 122 H 121 H (75-99) mg/dL 01/22/18 01/22/18 01/22/18 Range/Units 04:24 04:24 05:27 RBC 3.75 L (3.80-5.40) m/uL Hgb 11.1 L (11.4-16.0) gm/dL MCHC 30.9 L (31.0-37.0) g/dL RDW 17.2 H (11.5-15.5) % Lymphocytes # 0.4 L (1.0-4.8) k/uL ABG pCO2 (35-45) mmHg ABG HCO3 (21-25) mmol/L ABG Total CO2 (19-24) mmol/L BUN 18 H (7-17) mg/dL Creatinine 0.30 L (0.52-1.04) mg/dL Glucose 154 H (74-99) mg/dL POC Glucose (mg/dL) 152 H (75-99) mg/dL 01/22/18 Range/Units 07:48 RBC (3.80-5.40) m/uL Hgb (11.4-16.0) gm/dL MCHC (31.0-37.0) g/dL RDW (11.5-15.5) % Lymphocytes # (1.0-4.8) k/uL ABG pCO2 51 H (35-45) mmHg ABG HCO3 32 H (21-25) mmol/L ABG Total CO2 33 H (19-24) mmol/L BUN (7-17) mg/dL Creatinine (0.52-1.04) mg/dL Glucose (74-99) mg/dL POC Glucose (mg/dL) (75-99) mg/dL Microbiology - Last 24 Hours (Table) 01/20/18 14:25 Blood Culture - Preliminary Blood No Growth after 24 hours 01/20/18 23:28 Gram Stain - Preliminary Sputum Sputum Culture - Preliminary Assessment and Plan Assessment: Assessment Hypoxemic and hypercapnic respiratory failure, requiring intubation and mechanical ventilation secondary to severe COPD. Doubt pneumonia Previous history of bronchogenic carcinoma, status post right-sided lobectomy followed by chemoradiation History of CAD Fibromyalgia Benign essential hypertension History of previous myocardial infarction History of seizure disorder History of gastroesophageal reflux disease Migraine cephalgia History of irritable bowel syndrome Plan: Plan dated 01/22/2018 The patient's doing well. We will attempt to see if we can wait the patient up get some weaning parameters and a cuff leak test and determine whether or not the patient could be weaned and extubated. The patient's blood gases are reasonable. The vent settings are excellent. We'll hold the propofol. Additional recommendations and suggestions are forthcoming. White count 5.6, hemoglobin is 11.1 and platelet count is normal. Sodium potassium chloride CO2 anion gap and renal function is all within normal range. Microbiology is negative thus far. Medications are reviewed and are appropriate. Local care time 36 minutes Time with Patient: Greater than 30
[2018-01-22] MEDS: HYDROmorphone 0.5 MG/0.5 ML SYRINGE IVP PRN ×5 (10:54→22:15)
[2018-01-22 11:53] LABS: Glucose,Whole Blood 108 mg/dL (75-99)
--- NOTE | 2018-01-22 13:00 | PN ---
PROGRESS NOTE DATE OF SERVICE: 01/22/2018 This 57-year-old woman who was admitted with COPD acute exacerbation also had hypoxic hypercapnic respiratory failure. The patient continues to smoke. The patient is extubated. The patient is slightly tired. The patient also has significant emaciation also. The patient is closely monitored in ICU. Patient is on bronchodilators, steroids and antibiotics. Dr. Gallardo is following the patient closely. PAST MEDICAL HISTORY: Reviewed. REVIEW OF SYSTEMS: CARDIOVASCULAR: No angina. RESPIRATORY: As mentioned earlier. GI: As mentioned earlier. : No dysuria. NERVOUS SYSTEM: No numbness or weakness. MEDICATIONS: Current medications are reviewed and include: 1. DuoNeb q.i.d. and p.r.n. 2. Aspirin 81 mg daily. 3. Tenormin 25 mg b.i.d. 4. Lipitor. 5. Aztreonam 1 gram IV q.8. 6. Pulmicort. 7. Plavix 75 mg p.o. daily. 8. Cyproheptadine. 9. Decadron 4 mg IV q.6. 10.Lexapro. 11.Zetia. 12.Florinef. 13.Perforomist. 14.Neurontin 300 mg b.i.d. 15.Dilaudid. 16.Cephulac. 17.Lamictal. 18.Levaquin IV. 19.Protonix. 20.Ranexa. PHYSICAL EXAM: Patient is alert and oriented x3. Pulse 96, blood pressure 164/87, respiration 40, temperature is normal, pulse ox 97% on 3 L. HEENT: Conjunctivae normal. Oral mucosa moist. Neck is no jugular venous distention. No carotid bruit. No lymph node enlargement. CARDIOVASCULAR: S1 and S2 muffled. No S3, no S4. RESPIRATORY: Breath sounds diminished at the bases. Bilateral scattered rhonchi and crackles. Expiratory wheezing also present. ABDOMEN: Soft, nontender. LEGS: No edema. NERVOUS SYSTEM: Higher functions as mentioned earlier. Moves all 4 limbs. No focal motor or sensory deficits. LYMPHATICS: No lymphadenopathy of the neck, axillae or groin. SKIN: No ulcer, rash or bleeding. LABS: WBC 5.6, hemoglobin 11.1. Accu-Cheks noted. ASSESSMENT: 1. Chronic obstructive pulmonary disease acute exacerbation with acute hypoxic hypercarbic respiratory failure as well as acute purulent tracheobronchitis. 2. Continued ongoing nicotine dependence. 3. Mild protein-calorie malnutrition. 4. History of asthma, chronic obstructive pulmonary disease. 5. History of coronary artery disease. 6. Cerebrovascular accident, transient ischemic attack. 7. Fibromyalgia. 8. History of gastroesophageal reflux disease. 9. Hypertension. 10.Hyperlipidemia. 11.History of myocardial infarction. 12.Seizure disorder. 13.Chronic hypoxic respiratory failure on 2 L nasal cannula. 14.History of right lung cancer treated with [facility] previously. 15.Transient ischemic attack. 16.History of migraines. 17.History of coronary artery disease, stent. 18.History of anxiety, depression. RECOMMENDATIONS AND DISCUSSION: Recommend to continue current medications, continue with monitoring and symptomatic treatment. Otherwise, continue with bronchodilators, steroids and empiric antibiotics plus DVT prophylaxis. Closely follow with Pulmonary. Prognosis guarded because of multiple complex medical issues and further recommendations to follow. MMDONYAL / DUARTEN: [id number] /
[2018-01-22] MEDS: LEVOFLOXACIN 500MG-D5W PMX 500 MG in DEXTROSE/WATER 1 100ML.BAG IVPB SCH (16:14)
[2018-01-22 18:03] LABS: Glucose,Whole Blood 105 mg/dL (75-99)
[2018-01-23 00:09] LABS: Glucose,Whole Blood 109 mg/dL (75-99)
[2018-01-23] MEDS: AZTREONAM 1 GM in SODIUM CHLORIDE 0.9% 50 ML IVPB SCH ×4 (00:26→23:04)
[2018-01-23] MEDS: DEXAMETHASONE SOD PHOSPHATE 4 MG/ML 1 ML VIAL IV SCH ×5 (00:26→23:04)
[2018-01-23] MEDS: SODIUM CHLORIDE 0.9% 1,000 ML IV SCH ×3 (02:00→20:11)
[2018-01-23] MEDS: HYDROmorphone 0.5 MG/0.5 ML SYRINGE IVP PRN ×5 (03:01→20:06)
[2018-01-23] MEDS: IPRATROPIUM-ALBUTEROL 3 ML NEB INHALATION SCH ×6 (03:44→23:45)
[2018-01-23 04:23] LABS: Anisocytosis Slight; Basophils % (A) 0 %; Eosinophils # (A) 0.1 k/uL (0-0.7); Eosinophils % (A) 1 %; HCT 38.6 % (34.0-46.0); HGB 12.1 gm/dL (11.4-16.0); Hypochromasia Slight; Lymphocytes # (A) 0.4 k/uL (1.0-4.8); Lymphocytes % (A) 4 %; MCH 29.4 pg (25.0-35.0); MCHC 31.5 g/dL (31.0-37.0); MCV 93.3 fL (80.0-100.0); Monocytes # (A) 0.2 k/uL (0-1.0); Monocytes % (A) 3 %; Neutrophils # (A) 8.3 k/uL (1.3-7.7); Neutrophils % (A) 91 %; Platelet Count 142 k/uL (150-450); RBC 4.13 m/uL (3.80-5.40); RDW 16.8 % (11.5-15.5); WBC 9.1 k/uL (3.8-10.6)
[2018-01-23 04:32] LABS: Anion Gap 8 mmol/L; Blood Urea Nitrogen 15 mg/dL (7-17); Calcium 8.9 mg/dL (8.4-10.2); Carbon Dioxide 30 mmol/L (22-30); Chloride 102 mmol/L (98-107); Glucose 113 mg/dL (74-99); Magnesium 1.7 mg/dL (1.6-2.3); Phosphorus 3.4 mg/dL (2.5-4.5); Sodium 140 mmol/L (137-145)
[2018-01-23 04:36] LABS: Potassium 5.1 mmol/L (3.5-5.1)
[2018-01-23] MEDS ORDERED: Magnesium Replacement Protocol 1 EACH MISC MISCELLANE PRN (04:59)
[2018-01-23 06:01] LABS: Glucose,Whole Blood 118 mg/dL (75-99)
[2018-01-23] MEDS: MAGNESIUM SULFATE-D5W PMX 1 GM in DEXTROSE/WATER 1 100ML.BAG IVPB SCH ×2 (06:15→08:52)
[2018-01-23] MEDS: LORazepam 0.5 MG TAB PO PRN ×3 (07:49→19:03)
[2018-01-23] MEDS: CLOPIDOGREL 75 MG TAB PO SCH (08:09)
[2018-01-23] MEDS: ATENOLOL 25 MG TAB PO SCH ×2 (08:09→20:05)
[2018-01-23] MEDS: ATORVASTATIN 20 MG TAB PO SCH (08:09)
[2018-01-23] MEDS: DRONEDARONE 400 MG TAB PO SCH ×2 (08:09→17:15)
[2018-01-23] MEDS: ASPIRIN 81 MG PO SCH (08:09)
[2018-01-23] MEDS: NICOTINE 14MG/24HR PATCH TRANSDERM SCH (08:09)
[2018-01-23] MEDS: GABAPENTIN 300 MG CAP PO SCH ×2 (08:10→20:05)
[2018-01-23] MEDS: CYPROHEPTADINE 4 MG TABLET PO SCH ×3 (08:10→22:06)
[2018-01-23] MEDS: ESCITALOPRAM 20 MG TAB PO SCH (08:10)
[2018-01-23] MEDS: HEPARIN SODIUM,PORCINE 5,000 UNIT/ML 1 ML VIAL SQ SCH ×2 (08:10→20:05)
[2018-01-23] MEDS: EZETIMIBE 10 MG TAB PO SCH (08:10)
[2018-01-23] MEDS: LACTULOSE 20 GM/30 ML CUP PO SCH (08:10)
[2018-01-23] MEDS: FLUDROCORTISONE 0.1 MG TAB PO SCH ×2 (08:10→20:05)
[2018-01-23] MEDS: lamoTRIgine 100 MG TAB PO SCH (08:11)
[2018-01-23] MEDS: PANTOPRAZOLE 40 MG/10 ML VIAL IVP SCH (08:11)
[2018-01-23] MEDS: RANOLAZINE 500 MG TAB.ER.12H PO SCH ×2 (08:11→20:05)
[2018-01-23] MEDS: MONTELUKAST 10 MG TAB PO SCH (08:11)
[2018-01-23] MEDS: POTASSIUM CHLORIDE ER 20 MEQ TAB.ER PO SCH (08:12)
[2018-01-23] MEDS: amLODIPine 5 MG TAB PO SCH ×2 (08:55→20:05)
[2018-01-23] MEDS: ISOSORBIDE MONONITRATE ER 30 MG TAB.ER.24H PO SCH (08:55)
[2018-01-23] MEDS: HYDROcodone/APAP 10-325MG 1 EACH TAB PO PRN ×3 (08:56→23:04)
[2018-01-23] MEDS: Lubiprostone [Amitiza] PO SCH (08:57)
[2018-01-23] MEDS: FORMOTEROL FUMARATE 20 MCG/2 ML NEBU INHALATION SCH ×2 (09:09→19:22)
[2018-01-23] MEDS: BUDESONIDE 1 MG/2 ML NEBU INHALATION SCH ×2 (09:09→19:22)
--- NOTE | 2018-01-23 09:14 | P.PN ---
Subjective Progress Note Date: 01/23/18 Principal diagnosis: Respiratory failure secondary to severe COPD Progress note dated 01/22/2018 57-year-old female with history of acute hypoxemic respiratory failure secondary to severe COPD. She has a previous history of lung cancer with previous lobectomy on the right side followed by chemotherapy and radiation done at [facility]. She is apparently being followed closely by a oncologist does not see a bell person on a regular basis. Back in November she had an episode of respiratory failure requiring intubation and mechanical ventilation and she was taken care of by my partner at that time. She was discharged within a few days. In addition to above, she has a history of a bronchitic bronchogenic carcinoma status post lobectomy radiation and chemotherapy CAD fibromyalgia essential hypertension previous myocardial infarction seizure disorder GERD and migraine cephalgia and irritable bowel syndrome. The patient is currently on the volume assist control mode with a rate of 18, tidal volume 325, FiO2 35% and PEEP of 7. The patient's blood gases show a PaO2 of 87 PaCO2 of 51 and pH 7.40. The patient is on propofol 70 mics per kilogram per minute saline at 100 mL an hour and vital AF at 40 with a goal of 40. She is a no CPR patient. She was intubated on the . She was admitted on the . Chest x-ray showed no acute process. Progress note dated 01/23/2018 57-year-old female with a history of acute hypoxemic respiratory failure secondary to severe COPD. She has a previous history of lung cancer with previous lobectomy on the right side followed by chemoradiation. More recently , she had a CT of the chest which suggested a nodule on the left lower lobe and increasing density in the right. Had a region possibly consistent with recurrent cancer. We will have oncology see her. She was extubated yesterday. Her arterial blood gases were excellent and weaning parameters were good. She has a history of follow-up COPD bronchogenic carcinoma with previous lobectomy radiation and chemotherapy CAD fibromyalgia essential hypertension previous myocardial infarction seizure disorder GERD and migraine cephalgia as well as irritable bowel syndrome. The patient is currently on nasal O2 at 3 L and also a saline IV at 100 mL an hour. I did discuss the CAT scan result on her dated January 20. She was unaware of the findings. She can pass that along to her family. Again, oncology consultation will be requested. She probably should stay in the ICU for another 24 hours. Objective - Vital Signs Vital signs: Vital Signs Temp 98.1 F 01/23/18 00:00 Pulse 87 01/23/18 07:00 Resp 14 01/23/18 07:00 BP 190/85 01/23/18 07:00 Pulse Ox 99 01/23/18 07:00 Intake & Output 01/22/18 01/23/18 01/23/18 18:59 06:59 18:59 Intake Total 1568.23 1250 100 Output Total 515 980 75 Balance 1053.23 270 25 Weight 38.5 kg Intake: IV 1450 1250 100 Aztreonam 1 gm In Sodium 150 50 Chloride 0.9% 50 ml @ 100 mls/hr IVPB Q8HR [facility]DR[facility] Rx# :[id number] Levofloxacin 500Mg-D5w 100 Pmx 500 mg In Dextrose/ Water 1 100ml.bag @ 100 mls/hr IVPB Q24H [facility]DRA Rx#: [id number] Magnesium Sulfate-D5w Pmx 100 1 gm In Dextrose/Water 1 100ml.bag @ 100 mls/hr IVPB Q1H [facility]DRA Rx#: [id number] Sodium Chloride 0.9% 1, 1200 1100 100 000 ml @ 100 mls/hr IV . Q10H [facility]DRA Rx#:[id number] Intake, IV Titration 48.23 Amount Propofol 1,000 mg In 48.23 Empty Bag 1 bag @ Titrate IV .Q0M SANDRA Rx#: [id number] Tube Feeding 70 Output: Urine 515 980 75 Other: Voiding Method Indwelling Catheter Indwelling Catheter - Exam No acute distress, oriented 3, with nasal O2 in place. HEENT examination is grossly unremarkable. Mucous membranes are moist. No oral lesions. Neck supple. Full range of motion. No adenopathy thyromegaly or neck vein distention. Cardiovascular examination reveals regular rhythm rate. S1-S2 normal. No S3 or S4. No discernible murmur noted. Lungs reveal coarse bilateral expiratory and inspiratory wheezes and rhonchi. Breath sounds equal bilaterally. Breath sounds are diminished throughout. There is prolongation on forced maneuver. No crackles appreciated. Abdomen soft bowel sounds are heard. No masses or tenderness. Extremities are intact. No cyanosis clubbing or edema. Skin is without rash or lesion. Neurologic examination is brief but nonfocal. - Labs CBC & Chem 7: 01/23/18 03:56 01/23/18 03:56 Labs: Abnormal Lab Results - Last 24 Hours (Table) 01/22/18 01/22/18 01/23/18 Range/Units 11:50 18:00 00:07 RDW (11.5-15.5) % Plt Count (150-450) k/uL Neutrophils # (1.3-7.7) k/uL Lymphocytes # (1.0-4.8) k/uL Creatinine (0.52-1.04) mg/dL Glucose (74-99) mg/dL POC Glucose (mg/dL) 108 H 105 H 109 H (75-99) mg/dL 01/23/18 01/23/18 01/23/18 Range/Units 03:56 03:56 05:59 RDW 16.8 H (11.5-15.5) % Plt Count 142 L (150-450) k/uL Neutrophils # 8.3 H (1.3-7.7) k/uL Lymphocytes # 0.4 L (1.0-4.8) k/uL Creatinine 0.30 L (0.52-1.04) mg/dL Glucose 113 H (74-99) mg/dL POC Glucose (mg/dL) 118 H (75-99) mg/dL Microbiology - Last 24 Hours (Table) 01/20/18 14:25 Blood Culture - Preliminary Blood No Growth after 48 hours Assessment and Plan Assessment: Assessment Hypoxemic and hypercapnic respiratory failure, requiring intubation and mechanical ventilation secondary to severe COPD, status post extubation on January 22. Doubt pneumonia Previous history of bronchogenic carcinoma, status post right-sided lobectomy followed by chemoradiation, with CT evidence of a new nodule in the left lower lobe and increasing perihilar abnormalities in the right chest consistent with possible recurrent lung cancer. History of CAD Fibromyalgia Benign essential hypertension History of previous myocardial infarction History of seizure disorder History of gastroesophageal reflux disease Migraine cephalgia History of irritable bowel syndrome Plan: Plan dated 01/22/2018 The patient's doing well. We will attempt to see if we can wait the patient up get some weaning parameters and a cuff leak test and determine whether or not the patient could be weaned and extubated. The patient's blood gases are reasonable. The vent settings are excellent. We'll hold the propofol. Additional recommendations and suggestions are forthcoming. White count 5.6, hemoglobin is 11.1 and platelet count is normal. Sodium potassium chloride CO2 anion gap and renal function is all within normal range. Microbiology is negative thus far. Medications are reviewed and are appropriate. Local care time 36 minutes Plan dated 01/23/2018 The patient is doing a bit better today. She was disappointed to find out about the results of the CAT scan. She's currently not out of the brewster. She still quite bronchospastic. We will ask oncology to see her. She continues on updrafts with DuoNeb as well as Pulmicort and Perforomist twice a day. She also continues on Decadron every 6 hours. She apparently has an ALLERGY to Solu -Medrol. Additional recommendations and suggestions are forthcoming. She likely will stay in the unit for another 24 hours. Critical care time 36 minutes Time with Patient: Greater than 30
--- NOTE | 2018-01-23 09:29 | XR ---
EXAMINATION TYPE: XR chest 1V portable DATE OF EXAM: 01/23/2018 COMPARISON: Prior chest x-ray 01/22/[address] 01/21/2008 HISTORY: Respiratory failure TECHNIQUE: Single frontal view of the chest is obtained. FINDINGS: Port-A-Cath shows the distal tip in the right atrium. There is basilar increased density i n the right with obscured hemidiaphragm and heart border. Volume loss present in the right hemithorax . No evident pneumothorax. Heart size is likely stable. Surgical clips present in the right hilar reg ion, nodular density in the right hilum is stable. Compensatory emphysema noted in the left lung. Int erstitium remains prominent. Prominent lung volume compatible with underlying COPD, emphysema. IMPRESSION: Possible right lower lobe atelectasis versus pneumonia and associated effusion. Intersti tial lung disease, correlate for volume overload.
[2018-01-23 11:48] LABS: Glucose,Whole Blood 111 mg/dL (75-99)
--- NOTE | 2018-01-23 16:00 | P.PN ---
Subjective 57-year-old cousin female admitted for COPD with acute exacerbation and acute hypercapnic respiratory failure patient is a thin built female can use to smoke. Patient is presently on 3 L of onset in with the significant wheezing on exam. Constitutional: Denied any fatigue denied any fever. Cardio vascular: denied any chest pain, palpitations Gastrointestinal denied any nausea vomiting Pulmonary: Can use to complain of some shortness of breath. Neurologic denied any new focal deficits Objective - Vital Signs Vital signs: Vital Signs Temp 98.6 F 01/23/18 12:00 Pulse 90 01/23/18 15:35 Resp 16 01/23/18 15:00 BP 170/90 01/23/18 15:00 Pulse Ox 98 01/23/18 15:16 Intake & Output 01/22/18 01/23/18 01/23/18 18:59 06:59 18:59 Intake Total 1568.23 1250 1740 Output Total 515 980 839 Balance 1053.23 270 901 Weight 38.5 kg 38.5 kg Intake: IV 1450 1250 900 Aztreonam 1 gm In Sodium 150 50 50 Chloride 0.9% 50 ml @ 100 mls/hr IVPB Q8HR [facility]DR[facility] Rx# :[id number] Levofloxacin 500Mg-D5w 100 Pmx 500 mg In Dextrose/ Water 1 100ml.bag @ 100 mls/hr IVPB Q24H [facility]DRA Rx#: [id number] Magnesium Sulfate-D5w Pmx 100 100 1 gm In Dextrose/Water 1 100ml.bag @ 100 mls/hr IVPB Q1H [facility]DRA Rx#: [id number] Sodium Chloride 0.9% 1, 1200 1100 750 000 ml @ 100 mls/hr IV . Q10H [facility]DRA Rx#:[id number] Intake, IV Titration 48.23 Amount Propofol 1,000 mg In 48.23 Empty Bag 1 bag @ Titrate IV .Q0M [facility]DRA Rx#: [id number] Oral 840 Tube Feeding 70 Output: Urine 515 980 839 Other: Voiding Method Indwelling Catheter Indwelling Catheter Indwelling Catheter - Exam PHYSICAL EXAMINATION: GENERAL: The patient is alert and oriented x3, not in any acute distress. Thin built cachectic secondary to COPD HEENT: Pupils are round and equally reacting to light. EOMI. No scleral icterus. No conjunctival pallor. Normocephalic, atraumatic. No pharyngeal erythema. No thyromegaly. CARDIOVASCULAR: S1 and S2 present. No murmurs, rubs, or gallops. PULMONARY: Diminished air entry into bilateral lung ardon at the significant expiratory wheezing. ABDOMEN: Soft, nontender, nondistended, normoactive bowel sounds. No palpable organomegaly. MUSCULOSKELETAL: No joint swelling or deformity. EXTREMITIES: No cyanosis, clubbing, or pedal edema. NEUROLOGICAL: Gross neurological examination did not reveal any focal deficits. SKIN: No rashes. - Labs CBC & Chem 7: 01/23/18 03:56 01/23/18 03:56 Labs: Abnormal Lab Results - Last 24 Hours (Table) 01/22/18 01/23/18 01/23/18 Range/Units 18:00 00:07 03:56 RDW 16.8 H (11.5-15.5) % Plt Count 142 L (150-450) k/uL Neutrophils # 8.3 H (1.3-7.7) k/uL Lymphocytes # 0.4 L (1.0-4.8) k/uL Creatinine (0.52-1.04) mg/dL Glucose (74-99) mg/dL POC Glucose (mg/dL) 105 H 109 H (75-99) mg/dL 01/23/18 01/23/18 01/23/18 Range/Units 03:56 05:59 11:45 RDW (11.5-15.5) % Plt Count (150-450) k/uL Neutrophils # (1.3-7.7) k/uL Lymphocytes # (1.0-4.8) k/uL Creatinine 0.30 L (0.52-1.04) mg/dL Glucose 113 H (74-99) mg/dL POC Glucose (mg/dL) 118 H 111 H (75-99) mg/dL Microbiology - Last 24 Hours (Table) 01/20/18 23:28 Gram Stain - Final Sputum Sputum Culture - Final 01/20/18 14:25 Blood Culture - Preliminary Blood No Growth after 48 hours Assessment and Plan Plan: Acute on chronic Hypoxemic and hypercapnic respiratory failure, requiring intubation and mechanical ventilation secondary to severe COPD, status post extubation on January 22. Patient is on systemic steroids inhaled treatments. Previous history of bronchogenic carcinoma, status post right-sided lobectomy followed by chemoradiation, pulmonary following the patient History of CAD Fibromyalgia Benign essential hypertension seizure disorder gastroesophageal reflux disease Migraine cephalgia irritable bowel syndrome For above-mentioned chronic medical problems patient will be resumed and continued on appropriate medications
--- NOTE | 2018-01-23 16:55 | P.CONS ---
History of Present Illness - Reason for Consult Consult date: 01/23/18 Lung Cancer Requesting physician: Dannie Gallardo - Chief Complaint Lung Mass - History of Present Illness This is a 57-year-old female with known history of severe underlying COPD, Ventilator Dependent Respiratory Failure (Hospitalized in November 2017), history of Right Lobectomy for lung cancer, treated adjuvantly with chemotherapy and radiation therapy at [facility]. Ms. Bonilla presents with symptoms of increased shortness of breath, and right- sided chest pain. Seen in the ER, CTA negative for pulmonary embolism, but it showed mostly postoperative changes in the right lung, with possible underlying pneumonia. Recurrent disease is unclear. After admission, Patient became hypoxic and went into respiratory failure, pulmonary notified and has been following. She was ventilated and transferred to the intensive care unit. Medical Oncology has been consulted for known history of Lung Cancer. She has been weaned off ventilator and is currently stable on 3 Liters Nasal Canula. She is sitting up in chair. She follows with Dr. Lopez for oncology treatment. Although since he left she is unsure who the oncologist is she is seeing now. She states she had a recent scan to check for cancer, at his office , but does not know results. We will try to obtain. Review of Systems A 14 point review of systems assessed and completed and all negative except HPI Past Medical History Past Medical History: Asthma, Coronary Artery Disease (CAD), Cancer, Chest Pain / Angina, COPD, CVA/TIA, Fibromyalgia, GERD/Reflux, Hyperlipidemia, Hypertension , Myocardial Infarction (AK), Osteoarthritis (OA), Respiratory Disorder, Seizure Disorder, Syncope Additional Past Medical History / Comment(s): Chronic respiratory failure, home O2 2L/NC ATC, R Lung cancer with surgery/chemo/radiation about 1.5 yrs ago (tx at [facility]), bronchitis, AK-many years ago-exact date unknown, TIA, migraines, last seizure 2012, DJD, chronic back/cervical pain, limited ROM in neck, R knee pain/derangement, osteoporosis, IBS, benign colon lesion, diarrhea- chronic, hiatal hernia, insomnia, hypoglycemia, rhinitis, TMJ syndrome, R hand thumb tendon surgery-limited ROM and pt is R handed. Brother and caregiver state that pt has a very good apetite and eats well but continues to lose weight. Caregiver also jsut learned and is concerned that pt's last BM was a week ago. Last Myocardial Infarction Date:: unkn-years ago History of Any Multi-Drug Resistant Organisms: None Reported Past Surgical History: Section, Heart Catheterization, Heart Catheterization With Stent, Hysterectomy Additional Past Surgical History / Comment(s): R lung lobectomy, mediport, R rib 3 benign tumors, liver bx-nonmalignant tumor, PCI with stent 2011, EGDs, colonoscopy, cervical plate, knee arthroscopy-laterallity unknown, R carpal tunnel release, tendons cut toes bilateral feet, bilateral great toes bunionectomy/ingrown toenails, R thumb tendon surgery. Past Anesthesia/Blood Transfusion Reactions: No Reported Reaction Date of Last Stent Placement:: 08/03/12 Past Psychological History: Anxiety, Depression Additional Psychological History / Comment(s): Pt resides alone in her apartment. Her neiceTess is her patient care coordinator and is with her a couple hours to half the day, daily. electrician's helper assists with laundry, meals, medications and cleans. Pt no longer drives. She has a friend who takes her to her doctors appts or family will give her rides. She uses a cane to ambulate and has a walker. She also has home Oxygen/nebulizer. Smoking Status: Current every day smoker Past Alcohol Use History: None Reported Additional Past Alcohol Use History / Comment(s): Pt started smoking in 1975 and is a ppd smoker. Past Drug Use History: None Reported Additional Drug Use History / Comment(s): Pt smokes marijuana a couple times a week. - Past Family History Father History Unknown: Yes Additional Family Medical History / Comment(s): Father was an alcoholic and was murdered at the age of 52 yrs. Mother Family Medical History: Cancer, Coronary Artery Disease (CAD), Hypertension Additional Family Medical History / Comment(s): Mother of metastatic cancer -primary unknown to family. Medications and Allergies Home Medications Medication Instructions Recorded Confirmed Type Aspirin 81 mg PO DAILY 11/16/17 01/20/18 History Clopidogrel [Plavix] 75 mg PO DAILY 11/16/17 01/20/18 History Ezetimibe [Zetia] 10 mg PO DAILY 11/16/17 01/20/18 History Fludrocortisone [Florinef] 0.1 mg PO BID 11/16/17 01/20/18 History Fluticasone/Salmeterol [Advair 1 puff INHALATION RT-DAILY 11/16/17 01/20/18 History 500-50 Diskus] HYDROcodone/APAP 10-325MG [[place] 1 tab PO TID 11/16/17 01/20/18 History 10-325] Ipratropium/Albuterol Sulfate 1 puff INHALATION RT-QID 11/16/17 01/20/18 History [Combivent Respimat Inhaler] Isosorbide Mononitrate ER [Imdur] 30 mg PO DAILY 11/16/17 01/20/18 History LORazepam [Ativan] 0.5 mg PO QID PRN 11/16/17 01/20/18 History Lubiprostone [Amitiza] 8 mcg PO DAILY 11/16/17 01/20/18 History Montelukast [Singulair] 10 mg PO DAILY 11/16/17 01/20/18 History Nitroglycerin Sl Tabs [Nitrostat] 0.4 mg SUBLINGUAL Q5M PRN 11/16/17 01/20/18 History Pitavastatin Calcium [Livalo] 4 mg PO DAILY 11/16/17 01/20/18 History Potassium Chloride ER [K-Dur 20] 20 meq PO DAILY 11/16/17 01/20/18 History Ranolazine [Ranexa] 500 mg PO BID 11/16/17 01/20/18 History lamoTRIgine [LaMICtal] 200 mg PO DAILY 11/16/17 01/20/18 History Atenolol [Tenormin] 25 mg PO BID #60 tab 11/21/17 01/20/18 Rx Ipratropium-Albuterol Nebulize 3 ml INHALATION RT-QID #120 11/21/17 01/20/18 Rx [Duoneb 0.5 mg-3 mg/3 ml Soln] ampul.neb Lactulose [Cephulac] 30 gm PO DAILY #300 ml 11/21/17 01/20/18 Rx amLODIPine [Norvasc] 5 mg PO BID #60 tab 11/21/17 01/20/18 Rx cloNIDine HCL [Catapres] 0.1 mg PO BID #60 tab 11/21/17 01/20/18 Rx Cyproheptadine HCl [Periactin] 4 mg PO TID 01/20/18 01/20/18 History Dronedarone [Multaq] 400 mg PO AC-BID 01/20/18 01/20/18 History Escitalopram [Lexapro] 20 mg PO DAILY 01/20/18 01/20/18 History Gabapentin [Neurontin] 300 mg PO BID 01/20/18 01/20/18 History Omeprazole [PriLOSEC] 40 mg PO BID 01/20/18 01/20/18 History Allergies Allergy/AdvReac Type Severity Reaction Status Date / Time fentanyl AdvReac Unknown Verified 01/20/18 15:53 morphine AdvReac Unknown Verified 01/20/18 15:53 oxycodone AdvReac Unknown Verified 01/20/18 15:53 Penicillins AdvReac Unknown Verified 01/20/18 15:53 prednisone AdvReac Unknown Verified 01/20/18 15:53 pregabalin [From Lyrica] AdvReac Unknown Verified 01/20/18 15:53 Physical Exam Vitals: Vital Signs Temp Pulse Resp BP Pulse Ox 01/23/18 13:00 89 12 143/74 95 01/23/18 12:21 87 01/23/18 12:00 98.6 F 90 18 150/76 94 L 01/23/18 11:00 86 15 151/79 95 01/23/18 10:00 93 18 188/88 92 L 01/23/18 09:34 92 01/23/18 09:26 92 01/23/18 09:25 92 01/23/18 09:10 91 97 01/23/18 09:00 94 19 197/96 97 01/23/18 08:00 97.6 F 88 16 204/88 99 01/23/18 07:00 87 14 190/85 99 01/23/18 06:00 89 13 193/92 98 01/23/18 05:00 89 12 192/90 98 01/23/18 04:00 89 14 178/89 100 01/23/18 03:55 89 01/23/18 03:44 85 01/23/18 03:00 88 15 199/95 98 01/23/18 02:00 86 30 H 164/89 98 01/23/18 01:00 90 24 179/88 97 01/23/18 00:05 93 01/23/18 00:00 98.1 F 90 13 170/81 100 01/22/18 23:52 89 01/22/18 23:29 89 17 183/84 97 01/22/18 23:00 89 16 183/84 97 01/22/18 22:00 93 11 L 176/87 97 01/22/18 21:00 94 11 L 151/76 95 01/22/18 20:00 98.2 F 98 16 179/91 93 L 01/22/18 19:26 92 01/22/18 19:20 95 01/22/18 19:08 95 01/22/18 19:00 93 17 189/76 97 01/22/18 18:00 87 16 167/85 98 01/22/18 17:00 90 12 167/85 99 01/22/18 16:00 97.9 F 90 19 171/86 100 01/22/18 15:38 88 01/22/18 15:29 85 01/22/18 15:00 86 12 155/79 100 01/22/18 14:00 90 27 H 155/79 98 Intake and Output 01/22/18 01/23/18 01/23/18 22:59 06:59 14:59 Intake Total 599 544 7360 Output Total 515 675 649 Balance 435 175 431 Intake: IV 950 850 600 Aztreonam 1 gm In Sodium 50 50 50 Chloride 0.9% 50 ml @ 100 mls/hr IVPB Q8HR SANDRA Rx# :[id number] Levofloxacin 500Mg-D5w 100 Pmx 500 mg In Dextrose/ Water 1 100ml.bag @ 100 mls/hr IVPB Q24H SANDRA Rx#: [id number] Magnesium Sulfate-D5w Pmx 100 100 1 gm In Dextrose/Water 1 100ml.bag @ 100 mls/hr IVPB Q1H SANDRA Rx#: [id number] Sodium Chloride 0.9% 1, 800 700 450 000 ml @ 100 mls/hr IV . Q10H SANDRA Rx#:[id number] Oral 480 Output: Urine 515 675 649 Other: Voiding Method Indwelling Catheter Indwelling Catheter Indwelling Catheter Weight 38.5 kg 38.5 kg - Constitutional General appearance: average body habitus, no acute distress - EENT Eyes: edentulous, EOMI, poor dentition ENT: NA/AT - Neck trachea Midline, Neck is Supple - Respiratory Respiratory: right: diminished (no increased effort), bilateral: wheezing - Cardiovascular Rhythm: regular Heart sounds: normal: S1, S2 - Gastrointestinal General gastrointestinal: normal bowel sounds, soft, tenderness - Neurologic No focal deficits Neurologic: CNII-XII intact - Musculoskeletal Musculoskeletal: generalized weakness, strength equal bilaterally - Psychiatric Psychiatric: A&O x's 3, appropriate affect, intact judgment & insight Results CBC & Chem 7: 01/23/18 03:56 01/23/18 03:56 Labs: Abnormal Lab Results - Last 24 Hours (Table) 01/22/18 01/23/18 01/23/18 Range/Units 18:00 00:07 03:56 RDW 16.8 H (11.5-15.5) % Plt Count 142 L (150-450) k/uL Neutrophils # 8.3 H (1.3-7.7) k/uL Lymphocytes # 0.4 L (1.0-4.8) k/uL Creatinine (0.52-1.04) mg/dL Glucose (74-99) mg/dL POC Glucose (mg/dL) 105 H 109 H (75-99) mg/dL 01/23/18 01/23/18 01/23/18 Range/Units 03:56 05:59 11:45 RDW (11.5-15.5) % Plt Count (150-450) k/uL Neutrophils # (1.3-7.7) k/uL Lymphocytes # (1.0-4.8) k/uL Creatinine 0.30 L (0.52-1.04) mg/dL Glucose 113 H (74-99) mg/dL POC Glucose (mg/dL) 118 H 111 H (75-99) mg/dL Microbiology - Last 24 Hours (Table) 01/20/18 23:28 Gram Stain - Final Sputum Sputum Culture - Final 01/20/18 14:25 Blood Culture - Preliminary Blood No Growth after 48 hours Assessment and Plan Plan: Assessment and Recommendations: 1. Hx: Lung Cancer Right Side: Status Post Lobectomy and Chemo and Radiation at [facility] - Please obtain recent Diagnostics to compare to current diagnostics here to assess for recurrent disease - Unclear if recurrent or progressive disease 2. Acute on Chronic Hypoxic Respiratory Failure - Extubated and stable on 3 Liters - Underlying COPD and exacerbation - Pulmonary 3. Cachexia and malnourished: - Patient admists to recent weight loss - Smoking cessation again enforced.
[2018-01-23] MEDS: LEVOFLOXACIN 500MG-D5W PMX 500 MG in DEXTROSE/WATER 1 100ML.BAG IVPB SCH (17:15)
[2018-01-23 17:22] LABS: Glucose,Whole Blood 178 mg/dL (75-99)
[2018-01-23 21:06] LABS: Glucose,Whole Blood 172 mg/dL (75-99)
[2018-01-24] MEDS: LORazepam 0.5 MG TAB PO PRN ×3 (01:18→13:46)
[2018-01-24] MEDS: IPRATROPIUM-ALBUTEROL 3 ML NEB INHALATION SCH ×6 (02:54→22:57)
[2018-01-24] MEDS: HYDROmorphone 0.5 MG/0.5 ML SYRINGE IVP PRN ×5 (04:44→21:09)
[2018-01-24] MEDS: DEXAMETHASONE SOD PHOSPHATE 4 MG/ML 1 ML VIAL IV SCH ×3 (04:45→17:33)
[2018-01-24 06:07] LABS: Anisocytosis Slight; Basophils % (A) 0 %; Eosinophils # (A) 0.1 k/uL (0-0.7); Eosinophils % (A) 1 %; HCT 37.8 % (34.0-46.0); HGB 11.9 gm/dL (11.4-16.0); Hypochromasia Slight; Lymphocytes # (A) 0.3 k/uL (1.0-4.8); Lymphocytes % (A) 6 %; MCHC 31.4 g/dL (31.0-37.0); MCV 92.3 fL (80.0-100.0); Mean Platelet Volume 8.1; Monocytes # (A) 0.2 k/uL (0-1.0); Monocytes % (A) 4 %; Neutrophils # (A) 4.9 k/uL (1.3-7.7); Neutrophils % (A) 88 %; Platelet Count 214 k/uL (150-450); RDW 16.8 % (11.5-15.5); WBC 5.6 k/uL (3.8-10.6)
[2018-01-24 06:08] LABS: ALT 37 U/L (9-52); AST 21 U/L (14-36); Albumin 3.3 g/dL (3.5-5.0); Alkaline Phosphatase 107 U/L (38-126); Anion Gap 8 mmol/L; Blood Urea Nitrogen 11 mg/dL (7-17); Carbon Dioxide 38 mmol/L (22-30); Chloride 95 mmol/L (98-107); Glucose 143 mg/dL (74-99); LDH 695 U/L (313-618); Magnesium 1.7 mg/dL (1.6-2.3); Potassium 3.8 mmol/L (3.5-5.1); Sodium 141 mmol/L (137-145); Total Bilirubin 0.1 mg/dL (0.2-1.3); Total Protein 5.7 g/dL (6.3-8.2)
[2018-01-24] MEDS ORDERED: Magnesium Replacement Protocol 1 EACH MISC MISCELLANE PRN (06:21)
[2018-01-24] MEDS: HYDROcodone/APAP 10-325MG 1 EACH TAB PO PRN ×3 (06:43→22:56)
[2018-01-24] MEDS: MAGNESIUM SULFATE-D5W PMX 1 GM in DEXTROSE/WATER 1 100ML.BAG IVPB SCH ×2 (07:11→09:03)
[2018-01-24] MEDS: BUDESONIDE 1 MG/2 ML NEBU INHALATION SCH ×2 (07:17→19:13)
[2018-01-24] MEDS: FORMOTEROL FUMARATE 20 MCG/2 ML NEBU INHALATION SCH ×2 (07:17→19:13)
[2018-01-24 07:25] LABS: Glucose,Whole Blood 138 mg/dL (75-99)
[2018-01-24] MEDS: DRONEDARONE 400 MG TAB PO SCH ×2 (08:21→17:33)
[2018-01-24] MEDS: AZTREONAM 1 GM in SODIUM CHLORIDE 0.9% 50 ML IVPB SCH ×2 (08:22→15:15)
[2018-01-24] MEDS: amLODIPine 5 MG TAB PO SCH ×2 (08:22→20:39)
[2018-01-24] MEDS: INSULIN ASPART 100 UNIT/ML 1 ML 10 ML VIAL SQ SCH ×4 (08:22→20:40)
[2018-01-24] MEDS: CLOPIDOGREL 75 MG TAB PO SCH (08:23)
[2018-01-24] MEDS: EZETIMIBE 10 MG TAB PO SCH (08:23)
[2018-01-24] MEDS: CYPROHEPTADINE 4 MG TABLET PO SCH ×3 (08:23→20:40)
[2018-01-24] MEDS: ESCITALOPRAM 20 MG TAB PO SCH (08:23)
[2018-01-24] MEDS: ATENOLOL 25 MG TAB PO SCH ×2 (08:23→20:39)
[2018-01-24] MEDS: ATORVASTATIN 20 MG TAB PO SCH (08:23)
[2018-01-24] MEDS: ASPIRIN 81 MG PO SCH (08:23)
[2018-01-24] MEDS: lamoTRIgine 100 MG TAB PO SCH (08:24)
[2018-01-24] MEDS: Lubiprostone [Amitiza] PO SCH (08:24)
[2018-01-24] MEDS: MONTELUKAST 10 MG TAB PO SCH (08:24)
[2018-01-24] MEDS: GABAPENTIN 300 MG CAP PO SCH ×2 (08:24→20:40)
[2018-01-24] MEDS: LACTULOSE 20 GM/30 ML CUP PO SCH (08:24)
[2018-01-24] MEDS: FLUDROCORTISONE 0.1 MG TAB PO SCH ×2 (08:24→20:40)
[2018-01-24] MEDS: HEPARIN SODIUM,PORCINE 5,000 UNIT/ML 1 ML VIAL SQ SCH ×2 (08:24→20:40)
[2018-01-24] MEDS: ISOSORBIDE MONONITRATE ER 30 MG TAB.ER.24H PO SCH (08:24)
[2018-01-24] MEDS: RANOLAZINE 500 MG TAB.ER.12H PO SCH ×2 (08:25→20:40)
[2018-01-24] MEDS: NICOTINE 14MG/24HR PATCH TRANSDERM SCH (08:25)
[2018-01-24] MEDS: POTASSIUM CHLORIDE ER 20 MEQ TAB.ER PO SCH (08:25)
[2018-01-24] MEDS: PANTOPRAZOLE 40 MG/10 ML VIAL IVP SCH (08:25)
--- NOTE | 2018-01-24 08:46 | P.PN ---
Subjective Progress Note Date: 01/24/18 Principal diagnosis: Respiratory failure secondary to severe COPD Progress note dated 01/22/2018 57-year-old female with history of acute hypoxemic respiratory failure secondary to severe COPD. She has a previous history of lung cancer with previous lobectomy on the right side followed by chemotherapy and radiation done at [facility]. She is apparently being followed closely by a oncologist does not see a malt liquors sales representative on a regular basis. Back in November she had an episode of respiratory failure requiring intubation and mechanical ventilation and she was taken care of by my partner at that time. She was discharged within a few days. In addition to above, she has a history of a bronchitic bronchogenic carcinoma status post lobectomy radiation and chemotherapy CAD fibromyalgia essential hypertension previous myocardial infarction seizure disorder GERD and migraine cephalgia and irritable bowel syndrome. The patient is currently on the volume assist control mode with a rate of 18, tidal volume 325, FiO2 35% and PEEP of 7. The patient's blood gases show a PaO2 of 87 PaCO2 of 51 and pH 7.40. The patient is on propofol 70 mics per kilogram per minute saline at 100 mL an hour and vital AF at 40 with a goal of 40. She is a no CPR patient. She was intubated on the . She was admitted on the . Chest x-ray showed no acute process. Progress note dated 01/23/2018 57-year-old female with a history of acute hypoxemic respiratory failure secondary to severe COPD. She has a previous history of lung cancer with previous lobectomy on the right side followed by chemoradiation. More recently , she had a CT of the chest which suggested a nodule on the left lower lobe and increasing density in the right. Had a region possibly consistent with recurrent cancer. We will have oncology see her. She was extubated yesterday. Her arterial blood gases were excellent and weaning parameters were good. She has a history of follow-up COPD bronchogenic carcinoma with previous lobectomy radiation and chemotherapy CAD fibromyalgia essential hypertension previous myocardial infarction seizure disorder GERD and migraine cephalgia as well as irritable bowel syndrome. The patient is currently on nasal O2 at 3 L and also a saline IV at 100 mL an hour. I did discuss the CAT scan result on her dated January 20. She was unaware of the findings. She can pass that along to her family. Again, oncology consultation will be requested. She probably should stay in the ICU for another 24 hours. Progress note dated 01/24/2018 57-year-old female with a history of acute hypoxemic respiratory failure secondary to severe COPD. She does have a previous history of lung cancer with previous lobectomy on the right side followed by chemoradiation. More recently , she was CT scan of the chest was suggested a nodule on the left lower lobe and increasing mass/density in the right hilum. She did have a recent PET scan in the year and that information is apparently being sent over here. This could be consistent with recurrent lung cancer. We will have oncology see her. She was extubated 2 days ago. Her weaning parameters and blood gases were excellent at the time. In addition, she has a history of COPD, bronchogenic carcinoma as above, CAD, fibromyalgia, essential hypertension, previous myocardial infarction, seizure disorder, GERD, migraine cephalgia, and irritable bowel syndrome. The patient's currently on O2 at 3 L by nasal cannula. Her IVs saline at 100 mL now her to be turned on the KVO. Her chest x -rays consistent with a COPD. I did explain the recent CAT scan findings to her and she understands. She's can pass that information on to her family. Oncology did see her. The results of recent PET scan is being sent over from [facility]. Objective - Vital Signs Vital signs: Vital Signs Temp 98.3 F 01/24/18 04:00 Pulse 88 01/24/18 07:45 Resp 14 01/24/18 07:00 BP 170/83 01/24/18 07:00 Pulse Ox 97 01/24/18 07:18 Intake & Output 01/23/18 01/24/18 01/24/18 18:59 06:59 18:59 Intake Total 2040 1760 100 Output Total 1039 1775 175 Balance 1001 -15 -75 Weight 38.5 kg 40.4 kg Intake: IV 1200 1200 100 Aztreonam 1 gm In Sodium 100 Chloride 0.9% 50 ml @ 100 mls/hr IVPB Q8HR SANDRA Rx# :[id number] Levofloxacin 500Mg-D5w 100 Pmx 500 mg In Dextrose/ Water 1 100ml.bag @ 100 mls/hr IVPB Q24H SANDRA Rx#: [id number] Magnesium Sulfate-D5w Pmx 100 1 gm In Dextrose/Water 1 100ml.bag @ 100 mls/hr IVPB Q1H SANDRA Rx#: [id number] Sodium Chloride 0.9% 1, 900 1200 100 000 ml @ 100 mls/hr IV . Q10H SANDRA Rx#:[id number] Oral 840 560 Output: Urine 1039 1775 175 Other: Voiding Method Indwelling Catheter Indwelling Catheter - Exam No acute distress, oriented 3, with nasal O2 in place. HEENT examination is grossly unremarkable. Mucous membranes are moist. No oral lesions. Neck supple. Full range of motion. No adenopathy thyromegaly or neck vein distention. Cardiovascular examination reveals regular rhythm rate. S1-S2 normal. No S3 or S4. No discernible murmur noted. Lungs reveal coarse bilateral expiratory and inspiratory wheezes and rhonchi. Breath sounds equal bilaterally. Breath sounds are diminished throughout. There is prolongation on forced maneuver. No crackles appreciated. Abdomen soft bowel sounds are heard. No masses or tenderness. Extremities are intact. No cyanosis clubbing or edema. Skin is without rash or lesion. Neurologic examination is brief but nonfocal. - Labs CBC & Chem 7: 01/24/18 05:36 01/24/18 05:36 Labs: Abnormal Lab Results - Last 24 Hours (Table) 01/23/18 01/23/18 01/23/18 Range/Units 11:45 17:20 21:03 RDW (11.5-15.5) % Lymphocytes # (1.0-4.8) k/uL Chloride (98-107) mmol/L Carbon Dioxide (22-30) mmol/L Creatinine (0.52-1.04) mg/dL Glucose (74-99) mg/dL POC Glucose (mg/dL) 111 H 178 H 172 H (75-99) mg/dL Total Bilirubin (0.2-1.3) mg/dL Lactate Dehydrogenase (313-618) U/L Total Protein (6.3-8.2) g/dL Albumin (3.5-5.0) g/dL 01/24/18 01/24/18 01/24/18 Range/Units 05:36 05:36 07:24 RDW 16.8 H (11.5-15.5) % Lymphocytes # 0.3 L (1.0-4.8) k/uL Chloride 95 L (98-107) mmol/L Carbon Dioxide 38 H (22-30) mmol/L Creatinine 0.30 L (0.52-1.04) mg/dL Glucose 143 H (74-99) mg/dL POC Glucose (mg/dL) 138 H (75-99) mg/dL Total Bilirubin 0.1 L (0.2-1.3) mg/dL Lactate Dehydrogenase 695 H (313-618) U/L Total Protein 5.7 L (6.3-8.2) g/dL Albumin 3.3 L (3.5-5.0) g/dL Microbiology - Last 24 Hours (Table) 01/20/18 14:25 Blood Culture - Preliminary Blood No Growth after 72 hours 01/20/18 23:28 Gram Stain - Final Sputum Sputum Culture - Final Assessment and Plan Assessment: Assessment Hypoxemic and hypercapnic respiratory failure, requiring intubation and mechanical ventilation secondary to severe COPD, status post extubation on January 22. Doubt pneumonia Previous history of bronchogenic carcinoma, status post right-sided lobectomy followed by chemoradiation, with CT evidence of a new nodule in the left lower lobe and increasing perihilar abnormalities in the right chest consistent with possible recurrent lung cancer. History of CAD Fibromyalgia Benign essential hypertension History of previous myocardial infarction History of seizure disorder History of gastroesophageal reflux disease Migraine cephalgia History of irritable bowel syndrome Plan: Plan dated 01/22/2018 The patient's doing well. We will attempt to see if we can wait the patient up get some weaning parameters and a cuff leak test and determine whether or not the patient could be weaned and extubated. The patient's blood gases are reasonable. The vent settings are excellent. We'll hold the propofol. Additional recommendations and suggestions are forthcoming. White count 5.6, hemoglobin is 11.1 and platelet count is normal. Sodium potassium chloride CO2 anion gap and renal function is all within normal range. Microbiology is negative thus far. Medications are reviewed and are appropriate. Local care time 36 minutes Plan dated 01/23/2018 The patient is doing a bit better today. She was disappointed to find out about the results of the CAT scan. She's currently not out of the brewster. She still quite bronchospastic. We will ask oncology to see her. She continues on updrafts with DuoNeb as well as Pulmicort and Perforomist twice a day. She also continues on Decadron every 6 hours. She apparently has an ALLERGY to Solu -Medrol. Additional recommendations and suggestions are forthcoming. She likely will stay in the unit for another 24 hours. Critical care time 36 minutes Plan dated 01/24/2018 The patient is doing about the same. Still very short of breath with conversational dyspnea. She is mildly tachypneic and dyspneic. The patient has been told about her recent CAT scan results. Results of her recent PET scan over [facility] are being faxed over. She remains on her usual medications. I the patient otherwise is doing about the same. Microbiologic studies have all been negative. Lab data includes a white count of 5.6 in 11.9 hematocrit 37.8 platelet count 214,000. Sodium potassium are normal chloride 95 CO2 38 BUN and creatinine are normal. Critical care time 34 minutes Time with Patient: Greater than 30
[2018-01-24] MEDS: SODIUM CHLORIDE 0.9% 1,000 ML IV SCH ×3 (09:02→09:04)
--- NOTE | 2018-01-24 09:15 | XR ---
EXAMINATION TYPE: XR chest 1V portable DATE OF EXAM: 01/24/2018 COMPARISON: Prior chest x-ray 01/23/2018 HISTORY: Respiratory failure TECHNIQUE: Single frontal view of the chest is obtained. FINDINGS: Findings are similar to prior exam. IMPRESSION: No significant interval change. Correlate for right lower lobe atelectasis versus pneumo liam and associated effusion. There may be component of volume overload, correlate to exclude pulmonar y venous hypertension and interstitial edema.
[2018-01-24 11:34] LABS: Glucose,Whole Blood 263 mg/dL (75-99)
[2018-01-24] MEDS ORDERED: INSULIN ASPART 100 UNIT/ML 1 ML 10 ML VIAL SQ ONE (12:10)
[2018-01-24 14:39] LABS: Glucose,Whole Blood 123 mg/dL (75-99)
[2018-01-24] MEDS: LEVOFLOXACIN 500MG-D5W PMX 500 MG in DEXTROSE/WATER 1 100ML.BAG IVPB SCH (16:14)
[2018-01-24] MEDS: ALPRAZolam 0.25 MG TAB PO PRN ×2 (16:14→21:49)
[2018-01-24 17:18] LABS: Glucose,Whole Blood 156 mg/dL (75-99)
--- NOTE | 2018-01-24 17:31 | P.PN ---
Subjective 57-year-old cousin female admitted for COPD with acute exacerbation and acute hypercapnic respiratory failure patient is a thin built female continues to smoke. Patient is presently on 3 L of onset in with the significant wheezing on exam. 01/24/2018 Patient is still wheezing quite a bit is using accessory muscles of breathing. Constitutional: Denied any fatigue denied any fever. Cardio vascular: denied any chest pain, palpitations Gastrointestinal denied any nausea vomiting Pulmonary: Continue to complain of some shortness of breath. Neurologic denied any new focal deficits Objective - Vital Signs Vital signs: Vital Signs Temp 98.1 F 01/24/18 16:00 Pulse 95 01/24/18 17:00 Resp 12 01/24/18 17:00 BP 118/69 01/24/18 17:00 Pulse Ox 96 01/24/18 17:00 Intake & Output 01/23/18 01/24/18 01/24/18 18:59 06:59 18:59 Intake Total 2040 1760 1580 Output Total 1039 1775 1355 Balance 1001 -15 225 Weight 38.5 kg 40.4 kg Intake: IV 1200 1200 500 Aztreonam 1 gm In Sodium 100 50 Chloride 0.9% 50 ml @ 100 mls/hr IVPB Q8HR [facility] Rx# :[id number] Levofloxacin 500Mg-D5w 100 Pmx 500 mg In Dextrose/ Water 1 100ml.bag @ 100 mls/hr IVPB Q24H [facility] Rx#: [id number] Magnesium Sulfate-D5w Pmx 100 1 gm In Dextrose/Water 1 100ml.bag @ 100 mls/hr IVPB Q1H [facility] Rx#: [id number] Magnesium Sulfate-D5w Pmx 200 1 gm In Dextrose/Water 1 100ml.bag @ 100 mls/hr IVPB Q1H [facility] Rx#: [id number] Sodium Chloride 0.9% 1, 900 1200 250 000 ml @ 20 mls/hr IV . Q24H [facility] Rx#:[id number] Oral [id number] Output: Urine 1039 1775 1355 Other: Voiding Method Indwelling Catheter Indwelling Catheter Indwelling Catheter - Exam PHYSICAL EXAMINATION: GENERAL: The patient is alert and oriented x3, patient is in moderate respiratory distress using accessory also breathing. Thin built cachectic secondary to COPD HEENT: Pupils are round and equally reacting to light. EOMI. No scleral icterus. No conjunctival pallor. Normocephalic, atraumatic. No pharyngeal erythema. No thyromegaly. CARDIOVASCULAR: S1 and S2 present. No murmurs, rubs, or gallops. PULMONARY: Diminished air entry into bilateral lung ardon at the significant expiratory wheezing. Rhonchus breath sounds using accessory muscles of breathing ABDOMEN: Soft, nontender, nondistended, normoactive bowel sounds. No palpable organomegaly. MUSCULOSKELETAL: No joint swelling or deformity. EXTREMITIES: No cyanosis, clubbing, or pedal edema. NEUROLOGICAL: Gross neurological examination did not reveal any focal deficits. SKIN: No rashes. - Labs CBC & Chem 7: 01/24/18 05:36 01/24/18 05:36 Labs: Abnormal Lab Results - Last 24 Hours (Table) 01/23/18 01/24/18 01/24/18 Range/Units 21:03 05:36 05:36 RDW 16.8 H (11.5-15.5) % Lymphocytes # 0.3 L (1.0-4.8) k/uL Chloride 95 L (98-107) mmol/L Carbon Dioxide 38 H (22-30) mmol/L Creatinine 0.30 L (0.52-1.04) mg/dL Glucose 143 H (74-99) mg/dL POC Glucose (mg/dL) 172 H (75-99) mg/dL Total Bilirubin 0.1 L (0.2-1.3) mg/dL Lactate Dehydrogenase 695 H (313-618) U/L Total Protein 5.7 L (6.3-8.2) g/dL Albumin 3.3 L (3.5-5.0) g/dL 01/24/18 01/24/18 01/24/18 Range/Units 07:24 11:32 14:25 RDW (11.5-15.5) % Lymphocytes # (1.0-4.8) k/uL Chloride (98-107) mmol/L Carbon Dioxide (22-30) mmol/L Creatinine (0.52-1.04) mg/dL Glucose (74-99) mg/dL POC Glucose (mg/dL) 138 H 263 H 123 H (75-99) mg/dL Total Bilirubin (0.2-1.3) mg/dL Lactate Dehydrogenase (313-618) U/L Total Protein (6.3-8.2) g/dL Albumin (3.5-5.0) g/dL 01/24/18 Range/Units 17:16 RDW (11.5-15.5) % Lymphocytes # (1.0-4.8) k/uL Chloride (98-107) mmol/L Carbon Dioxide (22-30) mmol/L Creatinine (0.52-1.04) mg/dL Glucose (74-99) mg/dL POC Glucose (mg/dL) 156 H (75-99) mg/dL Total Bilirubin (0.2-1.3) mg/dL Lactate Dehydrogenase (313-618) U/L Total Protein (6.3-8.2) g/dL Albumin (3.5-5.0) g/dL Microbiology - Last 24 Hours (Table) 01/20/18 14:25 Blood Culture - Preliminary Blood No Growth after 96 hours Assessment and Plan Plan: Acute on chronic Hypoxemic and hypercapnic respiratory failure, requiring intubation and mechanical ventilation secondary to severe COPD, status post extubation on January 22. Patient is on systemic steroids inhaled treatments. Patient doesn't have any significant improvement since yesterday continues to wheeze quite a bit patient has advanced to COPD, a prognosis is extremely poor Previous history of bronchogenic carcinoma, status post right-sided lobectomy followed by chemoradiation, pulmonary following the patient History of CAD Fibromyalgia Benign essential hypertension seizure disorder gastroesophageal reflux disease Migraine cephalgia irritable bowel syndrome For above-mentioned chronic medical problems patient will be resumed and continued on appropriate medications
[2018-01-24 20:40] LABS: Glucose,Whole Blood 155 mg/dL (75-99)
[2018-01-25] MEDS: AZTREONAM 1 GM in SODIUM CHLORIDE 0.9% 50 ML IVPB SCH ×3 (00:06→16:39)
[2018-01-25] MEDS: DEXAMETHASONE SOD PHOSPHATE 4 MG/ML 1 ML VIAL IV SCH ×5 (00:06→23:35)
[2018-01-25] MEDS: HYDROmorphone 0.5 MG/0.5 ML SYRINGE IVP PRN ×7 (00:08→23:36)
[2018-01-25] MEDS: IPRATROPIUM-ALBUTEROL 3 ML NEB INHALATION SCH ×5 (02:59→19:19)
[2018-01-25] MEDS: ALPRAZolam 0.25 MG TAB PO PRN ×3 (03:23→11:05)
[2018-01-25 05:48] LABS: Anisocytosis Slight; Basophils % (A) 0 %; Eosinophils # (A) 0.1 k/uL (0-0.7); Eosinophils % (A) 1 %; HCT 39.6 % (34.0-46.0); HGB 12.4 gm/dL (11.4-16.0); Hypochromasia Slight; Lymphocytes # (A) 0.3 k/uL (1.0-4.8); Lymphocytes % (A) 5 %; MCH 29.2 pg (25.0-35.0); MCHC 31.2 g/dL (31.0-37.0); MCV 93.6 fL (80.0-100.0); Mean Platelet Volume 7.9; Monocytes # (A) 0.3 k/uL (0-1.0); Monocytes % (A) 4 %; Neutrophils # (A) 5.4 k/uL (1.3-7.7); Neutrophils % (A) 89 %; Platelet Count 212 k/uL (150-450); RBC 4.23 m/uL (3.80-5.40); RDW 16.6 % (11.5-15.5); WBC 6.1 k/uL (3.8-10.6)
[2018-01-25] MEDS: HYDROcodone/APAP 10-325MG 1 EACH TAB PO PRN ×3 (05:57→22:25)
[2018-01-25 06:06] LABS: Blood Urea Nitrogen 17 mg/dL (7-17); Calcium 9.3 mg/dL (8.4-10.2); Chloride 90 mmol/L (98-107); Glucose 138 mg/dL (74-99); Potassium 4.2 mmol/L (3.5-5.1); Sodium 139 mmol/L (137-145)
[2018-01-25 06:12] LABS: Anion Gap 10 mmol/L
[2018-01-25 06:23] LABS: Carbon Dioxide 39 mmol/L (22-30)
[2018-01-25 07:00] LABS: Glucose,Whole Blood 132 mg/dL (75-99)
[2018-01-25] MEDS: BUDESONIDE 1 MG/2 ML NEBU INHALATION SCH ×2 (07:12→19:19)
[2018-01-25] MEDS: FORMOTEROL FUMARATE 20 MCG/2 ML NEBU INHALATION SCH ×2 (07:12→19:19)
--- NOTE | 2018-01-25 08:50 | XR ---
EXAMINATION TYPE: XR chest 1V DATE OF EXAM: 01/25/2018 COMPARISON: Prior chest 01/24/2018 HISTORY: Difficulty breathing TECHNIQUE: Single frontal view of the chest is obtained. FINDINGS: Stable exam. IMPRESSION: No significant interval change.
[2018-01-25] MEDS: INSULIN ASPART 100 UNIT/ML 1 ML 10 ML VIAL SQ SCH ×2 (09:14→12:17)
[2018-01-25] MEDS: LACTULOSE 20 GM/30 ML CUP PO SCH (09:17)
[2018-01-25] MEDS: GABAPENTIN 300 MG CAP PO SCH ×2 (09:18→21:20)
[2018-01-25] MEDS: DRONEDARONE 400 MG TAB PO SCH ×2 (09:18→18:01)
[2018-01-25] MEDS: HEPARIN SODIUM,PORCINE 5,000 UNIT/ML 1 ML VIAL SQ SCH ×2 (09:18→21:21)
[2018-01-25] MEDS: NICOTINE 14MG/24HR PATCH TRANSDERM SCH (09:18)
[2018-01-25] MEDS: SODIUM CHLORIDE 0.9% 1,000 ML IV SCH (09:19)
[2018-01-25] MEDS: PANTOPRAZOLE 40 MG/10 ML VIAL IVP SCH (09:20)
[2018-01-25] MEDS: EZETIMIBE 10 MG TAB PO SCH (09:20)
[2018-01-25] MEDS: FLUDROCORTISONE 0.1 MG TAB PO SCH ×2 (09:20→21:20)
[2018-01-25] MEDS: amLODIPine 5 MG TAB PO SCH ×2 (09:20→21:20)
[2018-01-25] MEDS: ISOSORBIDE MONONITRATE ER 30 MG TAB.ER.24H PO SCH (09:21)
[2018-01-25] MEDS: ESCITALOPRAM 20 MG TAB PO SCH (09:21)
[2018-01-25] MEDS: CLOPIDOGREL 75 MG TAB PO SCH (09:26)
[2018-01-25] MEDS: ATENOLOL 25 MG TAB PO SCH ×2 (09:27→21:20)
[2018-01-25] MEDS: ATORVASTATIN 20 MG TAB PO SCH (09:27)
[2018-01-25] MEDS: ASPIRIN 81 MG PO SCH (09:27)
[2018-01-25] MEDS: lamoTRIgine 100 MG TAB PO SCH (09:27)
[2018-01-25] MEDS: POTASSIUM CHLORIDE ER 20 MEQ TAB.ER PO SCH (09:29)
[2018-01-25] MEDS: Lubiprostone [Amitiza] PO SCH (09:29)
[2018-01-25] MEDS: MONTELUKAST 10 MG TAB PO SCH (09:29)
[2018-01-25] MEDS: CYPROHEPTADINE 4 MG TABLET PO SCH ×3 (09:29→21:20)
[2018-01-25] MEDS: RANOLAZINE 500 MG TAB.ER.12H PO SCH ×2 (09:30→21:20)
--- NOTE | 2018-01-25 09:50 | P.PN ---
Subjective Progress Note Date: 01/25/18 Principal diagnosis: Acute hypoxic respiratory failure secondary to acute exacerbation of severe chronic obstructive pulmonary disease Progress note dated 01/22/2018 57-year-old female with history of acute hypoxemic respiratory failure secondary to severe COPD. She has a previous history of lung cancer with previous lobectomy on the right side followed by chemotherapy and radiation done at [facility]. She is apparently being followed closely by a oncologist does not see a cisco network engineer on a regular basis. Back in November she had an episode of respiratory failure requiring intubation and mechanical ventilation and she was taken care of by my partner at that time. She was discharged within a few days. In addition to above, she has a history of a bronchitic bronchogenic carcinoma status post lobectomy radiation and chemotherapy CAD fibromyalgia essential hypertension previous myocardial infarction seizure disorder GERD and migraine cephalgia and irritable bowel syndrome. The patient is currently on the volume assist control mode with a rate of 18, tidal volume 325, FiO2 35% and PEEP of 7. The patient's blood gases show a PaO2 of 87 PaCO2 of 51 and pH 7.40. The patient is on propofol 70 mics per kilogram per minute saline at 100 mL an hour and vital AF at 40 with a goal of 40. She is a no CPR patient. She was intubated on the . She was admitted on the . Chest x-ray showed no acute process. Progress note dated 01/23/2018 57-year-old female with a history of acute hypoxemic respiratory failure secondary to severe COPD. She has a previous history of lung cancer with previous lobectomy on the right side followed by chemoradiation. More recently , she had a CT of the chest which suggested a nodule on the left lower lobe and increasing density in the right. Had a region possibly consistent with recurrent cancer. We will have oncology see her. She was extubated yesterday. Her arterial blood gases were excellent and weaning parameters were good. She has a history of follow-up COPD bronchogenic carcinoma with previous lobectomy radiation and chemotherapy CAD fibromyalgia essential hypertension previous myocardial infarction seizure disorder GERD and migraine cephalgia as well as irritable bowel syndrome. The patient is currently on nasal O2 at 3 L and also a saline IV at 100 mL an hour. I did discuss the CAT scan result on her dated January 20. She was unaware of the findings. She can pass that along to her family. Again, oncology consultation will be requested. She probably should stay in the ICU for another 24 hours. Progress note dated 01/24/2018 57-year-old female with a history of acute hypoxemic respiratory failure secondary to severe COPD. She does have a previous history of lung cancer with previous lobectomy on the right side followed by chemoradiation. More recently , she was CT scan of the chest was suggested a nodule on the left lower lobe and increasing mass/density in the right hilum. She did have a recent PET scan in the year and that information is apparently being sent over here. This could be consistent with recurrent lung cancer. We will have oncology see her. She was extubated 2 days ago. Her weaning parameters and blood gases were excellent at the time. In addition, she has a history of COPD, bronchogenic carcinoma as above, CAD, fibromyalgia, essential hypertension, previous myocardial infarction, seizure disorder, GERD, migraine cephalgia, and irritable bowel syndrome. The patient's currently on O2 at 3 L by nasal cannula. Her IVs saline at 100 mL now her to be turned on the KVO. Her chest x -rays consistent with a COPD. I did explain the recent CAT scan findings to her and she understands. She's can pass that information on to her family. Oncology did see her. The results of recent PET scan is being sent over from [facility]. The patient is seen again today 01/25/2018 in follow-up in the intensive care unit. She is awake and alert in no acute distress. She does remain dyspneic with minimal exertion. She is wheezing. She is improved today as compared to yesterday but not quite back to her baseline. Her chest x-ray remains stable no significant infiltrate. She is maintaining good O2 saturations in the 90s on 3 L/m per nasal cannula. She is afebrile. Somewhat hypertensive. Blood and sputum cultures reveal no growth. White count 6.1. Hemoglobin 12.4. Creatinine 0.30. Unfortunately her PET scan reveals extensive metastatic disease involving the lower neck and chest and abdomen. Multiple metastases involving the liver as well. Objective - Vital Signs Vital signs: Vital Signs Temp 98.0 F 01/25/18 08:00 Pulse 93 01/25/18 09:00 Resp 15 01/25/18 09:00 BP 175/88 01/25/18 09:00 Pulse Ox 96 01/25/18 09:00 Intake & Output 01/24/18 01/25/18 01/25/18 18:59 06:59 18:59 Intake Total 1930 360 40 Output Total 1430 1650 350 Balance 500 -1290 -310 Weight 41.6 kg Intake: IV 610 260 40 Aztreonam 1 gm In Sodium 150 Chloride 0.9% 50 ml @ 100 mls/hr IVPB Q8HR [facility] Rx# :[id number] Magnesium Sulfate-D5w Pmx 200 1 gm In Dextrose/Water 1 100ml.bag @ 100 mls/hr IVPB Q1H [facility] Rx#: [id number] Sodium Chloride 0.9% 1, 260 260 40 000 ml @ 20 mls/hr IV . Q24H [facility] Rx#:[id number] Oral 1320 100 Output: Urine 1430 1650 350 Other: Voiding Method Indwelling Catheter Indwelling Catheter - Exam Progress note dated 01/22/2018 57-year-old female with history of acute hypoxemic respiratory failure secondary to severe COPD. She has a previous history of lung cancer with previous lobectomy on the right side followed by chemotherapy and radiation done at [facility]. She is apparently being followed closely by a oncologist does not see a cisco network engineer on a regular basis. Back in November she had an episode of respiratory failure requiring intubation and mechanical ventilation and she was taken care of by my partner at that time. She was discharged within a few days. In addition to above, she has a history of a bronchitic bronchogenic carcinoma status post lobectomy radiation and chemotherapy CAD fibromyalgia essential hypertension previous myocardial infarction seizure disorder GERD and migraine cephalgia and irritable bowel syndrome. The patient is currently on the volume assist control mode with a rate of 18, tidal volume 325, FiO2 35% and PEEP of 7. The patient's blood gases show a PaO2 of 87 PaCO2 of 51 and pH 7.40. The patient is on propofol 70 mics per kilogram per minute saline at 100 mL an hour and vital AF at 40 with a goal of 40. She is a no CPR patient. She was intubated on the . She was admitted on the . Chest x-ray showed no acute process. Progress note dated 01/23/2018 57-year-old female with a history of acute hypoxemic respiratory failure secondary to severe COPD. She has a previous history of lung cancer with previous lobectomy on the right side followed by chemoradiation. More recently , she had a CT of the chest which suggested a nodule on the left lower lobe and increasing density in the right. Had a region possibly consistent with recurrent cancer. We will have oncology see her. She was extubated yesterday. Her arterial blood gases were excellent and weaning parameters were good. She has a history of follow-up COPD bronchogenic carcinoma with previous lobectomy radiation and chemotherapy CAD fibromyalgia essential hypertension previous myocardial infarction seizure disorder GERD and migraine cephalgia as well as irritable bowel syndrome. The patient is currently on nasal O2 at 3 L and also a saline IV at 100 mL an hour. I did discuss the CAT scan result on her dated January 20. She was unaware of the findings. She can pass that along to her family. Again, oncology consultation will be requested. She probably should stay in the ICU for another 24 hours. Progress note dated 01/24/2018 57-year-old female with a history of acute hypoxemic respiratory failure secondary to severe COPD. She does have a previous history of lung cancer with previous lobectomy on the right side followed by chemoradiation. More recently , she was CT scan of the chest was suggested a nodule on the left lower lobe and increasing mass/density in the right hilum. She did have a recent PET scan in the year and that information is apparently being sent over here. This could be consistent with recurrent lung cancer. We will have oncology see her. She was extubated 2 days ago. Her weaning parameters and blood gases were excellent at the time. In addition, she has a history of COPD, bronchogenic carcinoma as above, CAD, fibromyalgia, essential hypertension, previous myocardial infarction, seizure disorder, GERD, migraine cephalgia, and irritable bowel syndrome. The patient's currently on O2 at 3 L by nasal cannula. Her IVs saline at 100 mL now her to be turned on the KVO. Her chest x -rays consistent with a COPD. I did explain the recent CAT scan findings to her and she understands. She's can pass that information on to her family. Oncology did see her. The results of recent PET scan is being sent over from [facility]. - Labs CBC & Chem 7: 01/25/18 05:27 01/25/18 05:27 Labs: Abnormal Lab Results - Last 24 Hours (Table) 01/24/18 01/24/18 01/24/18 Range/Units 11:32 14:25 17:16 RDW (11.5-15.5) % Lymphocytes # (1.0-4.8) k/uL Chloride (98-107) mmol/L Carbon Dioxide (22-30) mmol/L Creatinine (0.52-1.04) mg/dL Glucose (74-99) mg/dL POC Glucose (mg/dL) 263 H 123 H 156 H (75-99) mg/dL 01/24/18 01/25/18 01/25/18 Range/Units 20:39 05:27 05:27 RDW 16.6 H (11.5-15.5) % Lymphocytes # 0.3 L (1.0-4.8) k/uL Chloride 90 L (98-107) mmol/L Carbon Dioxide 39 H (22-30) mmol/L Creatinine 0.30 L (0.52-1.04) mg/dL Glucose 138 H (74-99) mg/dL POC Glucose (mg/dL) 155 H (75-99) mg/dL 01/25/18 Range/Units 06:59 RDW (11.5-15.5) % Lymphocytes # (1.0-4.8) k/uL Chloride (98-107) mmol/L Carbon Dioxide (22-30) mmol/L Creatinine (0.52-1.04) mg/dL Glucose (74-99) mg/dL POC Glucose (mg/dL) 132 H (75-99) mg/dL Microbiology - Last 24 Hours (Table) 01/20/18 14:25 Blood Culture - Preliminary Blood No Growth after 96 hours Assessment and Plan Assessment: Assessment Hypoxemic and hypercapnic respiratory failure, requiring intubation and mechanical ventilation secondary to severe COPD, status post extubation on January 22. Previous history of bronchogenic carcinoma, status post right-sided lobectomy followed by chemoradiation, with CT evidence of a new nodule in the left lower lobe and increasing perihilar abnormalities in the right chest consistent with possible recurrent lung cancer. PET scan was obtained from [facility] and revealed markedly abnormal study. Findings are consistent with extensive metastatic disease involving the lower neck, chest and abdomen. There is also multiple metastases involving the liver as well. Chronic and ongoing tobacco dependence History of CAD Fibromyalgia Benign essential hypertension History of previous myocardial infarction History of seizure disorder History of gastroesophageal reflux disease Migraine cephalgia History of irritable bowel syndrome Plan: The patient was seen and evaluated by Dr. Gallardo. She is currently stable from the pulmonary standpoint. He did review the results of the PET scan with her. Her overall prognosis remains quite poor with extensive metastatic disease. She 'll be transferred out of the intensive care unit today. We'll continue with her current treatment plan including DuoNeb inhalations 4 times a day and when necessary, Pulmicort and Perforomist inhalations twice a day, Decadron 4 mg IV push every 6 hours. I, the cosigning physician, performed a history & physical examination of the patient. Lungs sounds have bilateral wheezing. Diminished. Maintaining good O2 saturations in the 90s on 3 L/m per nasal cannula. I discussed the assessment and plan of care with my nurse practitioner, Isis Novak. I attest to the above note as dictated by her.
[2018-01-25 11:44] LABS: Glucose,Whole Blood 150 mg/dL (75-99)
[2018-01-25 14:23] VITALS: BMI 17.3
[2018-01-25] MEDS ORDERED: ALBUTEROL NEBULIZED 2.5 MG/3 ML INHALATION PRN (15:04)
[2018-01-25] MEDS: ALPRAZolam 0.5 MG TAB PO PRN ×2 (15:13→21:20)
--- NOTE | 2018-01-25 16:54 | P.PN ---
Subjective Progress Note Date: 01/25/18 Principal diagnosis: Recurrent Lung Cancer This is a 57-year-old female with known history of severe underlying COPD, Ventilator Dependent Respiratory Failure (Hospitalized in November 2017), history of Right Lobectomy for lung cancer, treated adjuvantly with chemotherapy and radiation therapy at [facility]. Ms. Bonilla presents with symptoms of increased shortness of breath, and right- sided chest pain. Seen in the ER, CTA negative for pulmonary embolism, but it showed mostly postoperative changes in the right lung, with possible underlying pneumonia. Recurrent disease is unclear. After admission, Patient became hypoxic and went into respiratory failure, pulmonary notified and has been following. She was ventilated and transferred to the intensive care unit. Medical Oncology has been consulted for known history of Lung Cancer. She has been weaned off ventilator and is currently stable on 3 Liters Nasal Canula. She is sitting up in chair. She follows with Dr. Lopez for oncology treatment. Although since he left she is unsure who the oncologist is she is seeing now. 01/25/18 - We have Obtained the PET scan from [facility]. We have reviewed and does appear to be recurrent and progressive metastatic cancer. This has been discussed with the patient today in follow-up. She has no new complaints. COmplains of pain in sides as well as still difficulty in breathing. Objective - Vital Signs Vital signs: Vital Signs Temp 98.6 F 01/25/18 15:00 Pulse 90 01/25/18 15:54 Resp 24 01/25/18 15:00 BP 158/76 01/25/18 15:00 Pulse Ox 99 01/25/18 15:00 Intake & Output 01/24/18 01/25/18 01/25/18 18:59 06:59 18:59 Intake Total 1930 360 190 Output Total 1430 1650 695 Balance 500 -1290 -505 Weight 41.6 kg 41.6 kg Intake: IV 610 260 190 Aztreonam 1 gm In Sodium 150 50 Chloride 0.9% 50 ml @ 100 mls/hr IVPB Q8HR [facility] Rx# :[id number] Magnesium Sulfate-D5w Pmx 200 1 gm In Dextrose/Water 1 100ml.bag @ 100 mls/hr IVPB Q1H [facility] Rx#: [id number] Sodium Chloride 0.9% 1, 260 260 140 000 ml @ 20 mls/hr IV . Q24H [facility] Rx#:[id number] Oral 1320 100 Output: Urine 1430 1650 695 Other: Voiding Method Indwelling Catheter Indwelling Catheter Indwelling Catheter - Constitutional General appearance: Present: cooperative, mild distress, thin - EENT Eyes: Present: edentulous, EOMI, PERRLA, poor dentition ENT: Present: hard of hearing, NA/AT, normal oropharynx - Neck Details: Supple, Trachea Midline Neck: Present: normal ROM - Respiratory Respiratory: bilateral: diminished (Bibasilar), wheezing (Expiratory) - Cardiovascular Heart rate: 108 Rhythm: regular Heart sounds: normal: S1, S2 - Gastrointestinal General gastrointestinal: Present: normal bowel sounds, soft, tenderness - Integumentary Integumentary: Present: pale - Neurologic Neurologic: Present: CNII-XII intact - Musculoskeletal Musculoskeletal: Present: generalized weakness, strength equal bilaterally - Psychiatric Psychiatric: Present: A&O x's 3, appropriate affect, intact judgment & insight - Labs CBC & Chem 7: 01/25/18 05:27 01/25/18 05:27 Labs: Abnormal Lab Results - Last 24 Hours (Table) 01/24/18 01/24/18 01/25/18 Range/Units 17:16 20:39 05:27 RDW 16.6 H (11.5-15.5) % Lymphocytes # 0.3 L (1.0-4.8) k/uL Chloride (98-107) mmol/L Carbon Dioxide (22-30) mmol/L Creatinine (0.52-1.04) mg/dL Glucose (74-99) mg/dL POC Glucose (mg/dL) 156 H 155 H (75-99) mg/dL 01/25/18 01/25/18 01/25/18 Range/Units 05:27 06:59 11:42 RDW (11.5-15.5) % Lymphocytes # (1.0-4.8) k/uL Chloride 90 L (98-107) mmol/L Carbon Dioxide 39 H (22-30) mmol/L Creatinine 0.30 L (0.52-1.04) mg/dL Glucose 138 H (74-99) mg/dL POC Glucose (mg/dL) 132 H 150 H (75-99) mg/dL Microbiology - Last 24 Hours (Table) 01/20/18 14:25 Blood Culture - Preliminary Blood No Growth after 96 hours Assessment and Plan Plan: Assessment and Recommendations: 1. Hx: Lung Cancer Right Side: Status Post Lobectomy and Chemo and Radiation at [facility] - Please obtain recent Diagnostics to compare to current diagnostics here to assess for recurrent disease - Appears to have recurrent and progressive disease. We have recommended patient undergo a re-biopsy of the recurrent disease as with non-small cell lung cancer options for cell specific medications and other therapies do exist if certain molecular markers are present. At this time with her current respiratory status we would await her to improve and become more stable prior to undergoing a procedural biopsy. She would like to await re-biopsy until discharge and follow-up with her oncologist to undergo their recommendations at that time. - Al of her questions were answered, she understands that her disease is incurable and treatments would be done as a palliative measure. 2. Acute on Chronic Hypoxic Respiratory Failure - Extubated and stable on 3 Liters - Underlying COPD and exacerbation - Pulmonary 3. Cachexia and malnourished: - Patient admists to recent weight loss - Smoking cessation again enforced. Physician Attestation: I have completed the full history and physical of this patient and agree with above dictation by Alvina Santos NP. Dictated as a scribe.
[2018-01-25] MEDS: LEVOFLOXACIN 500MG-D5W PMX 500 MG in DEXTROSE/WATER 1 100ML.BAG IVPB SCH (17:59)
[2018-01-25] MEDS: IPRATROPIUM-ALBUTEROL 3 ML NEB INHALATION PRN (23:57)
[2018-01-26] MEDS: AZTREONAM 1 GM in SODIUM CHLORIDE 0.9% 50 ML IVPB SCH ×4 (00:06→23:34)
[2018-01-26] MEDS: ZOLPIDEM 5 MG TAB PO PRN ×2 (00:24→23:43)
[2018-01-26] MEDS: HYDROmorphone 0.5 MG/0.5 ML SYRINGE IVP PRN ×2 (03:25→09:36)
[2018-01-26] MEDS: IPRATROPIUM-ALBUTEROL 3 ML NEB INHALATION PRN (03:36)
[2018-01-26] MEDS: HYDROcodone/APAP 10-325MG 1 EACH TAB PO PRN ×3 (05:42→22:31)
[2018-01-26] MEDS: DEXAMETHASONE SOD PHOSPHATE 4 MG/ML 1 ML VIAL IV SCH ×4 (05:42→23:44)
[2018-01-26] MEDS: IPRATROPIUM-ALBUTEROL 3 ML NEB INHALATION SCH ×4 (07:56→19:59)
[2018-01-26] MEDS: FORMOTEROL FUMARATE 20 MCG/2 ML NEBU INHALATION SCH ×2 (07:57→19:59)
[2018-01-26] MEDS: BUDESONIDE 1 MG/2 ML NEBU INHALATION SCH ×2 (07:57→19:59)
[2018-01-26] MEDS: ALPRAZolam 0.5 MG TAB PO PRN ×3 (08:57→22:31)
[2018-01-26] MEDS: RANOLAZINE 500 MG TAB.ER.12H PO SCH ×2 (09:00→21:00)
[2018-01-26] MEDS: FLUDROCORTISONE 0.1 MG TAB PO SCH ×2 (09:00→20:59)
[2018-01-26] MEDS: ESCITALOPRAM 20 MG TAB PO SCH (09:01)
[2018-01-26] MEDS: HEPARIN SODIUM,PORCINE 5,000 UNIT/ML 1 ML VIAL SQ SCH (09:01)
[2018-01-26] MEDS: lamoTRIgine 100 MG TAB PO SCH (09:01)
[2018-01-26] MEDS: MONTELUKAST 10 MG TAB PO SCH (09:01)
[2018-01-26] MEDS: GABAPENTIN 300 MG CAP PO SCH ×2 (09:01→20:59)
[2018-01-26] MEDS: ISOSORBIDE MONONITRATE ER 30 MG TAB.ER.24H PO SCH (09:01)
[2018-01-26] MEDS: CYPROHEPTADINE 4 MG TABLET PO SCH ×3 (09:01→21:00)
[2018-01-26] MEDS: POTASSIUM CHLORIDE ER 20 MEQ TAB.ER PO SCH (09:01)
[2018-01-26] MEDS: EZETIMIBE 10 MG TAB PO SCH (09:02)
[2018-01-26] MEDS: PANTOPRAZOLE 40 MG/10 ML VIAL IVP SCH (09:02)
[2018-01-26] MEDS: LACTULOSE 20 GM/30 ML CUP PO SCH (09:02)
--- NOTE | 2018-01-26 09:50 | XR ---
EXAMINATION TYPE: XR chest 1V DATE OF EXAM: 01/26/2018 COMPARISON: Prior chest x-ray 01/25/2018 HISTORY: Difficulty breathing TECHNIQUE: Single frontal view of the chest is obtained. FINDINGS: Findings are similar to prior exam. No significant interval change. IMPRESSION: Stable abnormal chest x-ray. There may be small effusion, correlate to exclude pneumonia . Interstitial changes are present, prominent lung volumes suggest COPD. Postop changes.
[2018-01-26] MEDS: CLOPIDOGREL 75 MG TAB PO SCH (11:15)
[2018-01-26] MEDS: amLODIPine 5 MG TAB PO SCH ×2 (11:15→20:59)
[2018-01-26] MEDS: NICOTINE 14MG/24HR PATCH TRANSDERM SCH (11:15)
[2018-01-26] MEDS: ATENOLOL 25 MG TAB PO SCH ×2 (11:15→20:59)
[2018-01-26] MEDS: ATORVASTATIN 20 MG TAB PO SCH (11:15)
[2018-01-26] MEDS: DRONEDARONE 400 MG TAB PO SCH ×2 (11:27→17:51)
[2018-01-26] MEDS: Lubiprostone [Amitiza] PO SCH (12:19)
[2018-01-26] MEDS: ASPIRIN 81 MG PO SCH (12:19)
--- NOTE | 2018-01-26 12:24 | P.PN ---
Subjective Progress Note Date: 01/26/18 Principal diagnosis: Acute hypoxic respiratory failure secondary to acute exacerbation of severe chronic obstructive pulmonary disease Progress note dated 01/22/2018 57-year-old female with history of acute hypoxemic respiratory failure secondary to severe COPD. She has a previous history of lung cancer with previous lobectomy on the right side followed by chemotherapy and radiation done at [facility]. She is apparently being followed closely by a oncologist does not see a mechanic marine engine on a regular basis. Back in November she had an episode of respiratory failure requiring intubation and mechanical ventilation and she was taken care of by my partner at that time. She was discharged within a few days. In addition to above, she has a history of a bronchitic bronchogenic carcinoma status post lobectomy radiation and chemotherapy CAD fibromyalgia essential hypertension previous myocardial infarction seizure disorder GERD and migraine cephalgia and irritable bowel syndrome. The patient is currently on the volume assist control mode with a rate of 18, tidal volume 325, FiO2 35% and PEEP of 7. The patient's blood gases show a PaO2 of 87 PaCO2 of 51 and pH 7.40. The patient is on propofol 70 mics per kilogram per minute saline at 100 mL an hour and vital AF at 40 with a goal of 40. She is a no CPR patient. She was intubated on the . She was admitted on the . Chest x-ray showed no acute process. Progress note dated 01/23/2018 57-year-old female with a history of acute hypoxemic respiratory failure secondary to severe COPD. She has a previous history of lung cancer with previous lobectomy on the right side followed by chemoradiation. More recently , she had a CT of the chest which suggested a nodule on the left lower lobe and increasing density in the right. Had a region possibly consistent with recurrent cancer. We will have oncology see her. She was extubated yesterday. Her arterial blood gases were excellent and weaning parameters were good. She has a history of follow-up COPD bronchogenic carcinoma with previous lobectomy radiation and chemotherapy CAD fibromyalgia essential hypertension previous myocardial infarction seizure disorder GERD and migraine cephalgia as well as irritable bowel syndrome. The patient is currently on nasal O2 at 3 L and also a saline IV at 100 mL an hour. I did discuss the CAT scan result on her dated January 20. She was unaware of the findings. She can pass that along to her family. Again, oncology consultation will be requested. She probably should stay in the ICU for another 24 hours. Progress note dated 01/24/2018 57-year-old female with a history of acute hypoxemic respiratory failure secondary to severe COPD. She does have a previous history of lung cancer with previous lobectomy on the right side followed by chemoradiation. More recently , she was CT scan of the chest was suggested a nodule on the left lower lobe and increasing mass/density in the right hilum. She did have a recent PET scan in the year and that information is apparently being sent over here. This could be consistent with recurrent lung cancer. We will have oncology see her. She was extubated 2 days ago. Her weaning parameters and blood gases were excellent at the time. In addition, she has a history of COPD, bronchogenic carcinoma as above, CAD, fibromyalgia, essential hypertension, previous myocardial infarction, seizure disorder, GERD, migraine cephalgia, and irritable bowel syndrome. The patient's currently on O2 at 3 L by nasal cannula. Her IVs saline at 100 mL now her to be turned on the KVO. Her chest x -rays consistent with a COPD. I did explain the recent CAT scan findings to her and she understands. She's can pass that information on to her family. Oncology did see her. The results of recent PET scan is being sent over from [facility]. The patient is seen again today 01/25/2018 in follow-up in the intensive care unit. She is awake and alert in no acute distress. She does remain dyspneic with minimal exertion. She is wheezing. She is improved today as compared to yesterday but not quite back to her baseline. Her chest x-ray remains stable no significant infiltrate. She is maintaining good O2 saturations in the 90s on 3 L/m per nasal cannula. She is afebrile. Somewhat hypertensive. Blood and sputum cultures reveal no growth. White count 6.1. Hemoglobin 12.4. Creatinine 0.30. Unfortunately her PET scan reveals extensive metastatic disease involving the lower neck and chest and abdomen. Multiple metastases involving the liver as well. On 01/26/2018 patient seen in follow-up on oncology unit. Her outpatient PET scan results were reviewed yesterday, and showed extensive stage IV metastatic disease involving the lower neck, chest, and abdomen, as well as the liver. Patient remains mildly short of breath, but in no acute distress. Else of the PET scan were discussed with the patient, medical oncology is following as well , and has recommended a repeat biopsy of the recurrent disease for cell specific medications, however in view of patient's poor lung function, patient would not be a candidate for repeat biopsy, in view of a potential clinical deterioration and the potential of ending up on mechanical ventilation. Patient is being treated for acute exacerbation of COPD, and she remains on Levaquin and Azactam. Blood and sputum cultures remain negative. No fever or chills, still quite dyspneic at rest, and with any exertion. Patient is now on DO NOT RESUSCITATE, and she was recommended to consider palliative care/hospice care and the patient will be meeting with hospice outside sales representative insurance today. Objective - Vital Signs Vital signs: Vital Signs Temp 98.3 F 01/26/18 06:55 Pulse 82 01/26/18 08:45 Resp 16 01/26/18 08:45 BP 152/64 01/26/18 06:55 Pulse Ox 99 01/26/18 07:59 Intake & Output 01/25/18 01/26/18 01/26/18 18:59 06:59 18:59 Intake Total 190 410 Output Total 795 1000 Balance -605 -590 Weight 41.6 kg 104.5 kg Intake: IV 190 160 Aztreonam 1 gm In Sodium 50 Chloride 0.9% 50 ml @ 100 mls/hr IVPB Q8HR [facility] Rx# :[id number] Sodium Chloride 0.9% 1, 140 160 000 ml @ 20 mls/hr IV . Q24H [facility] Rx#:[id number] Oral 250 Output: Urine 795 1000 Other: Voiding Method Bedside Commode Bedside Commode Bedside Commode # Voids 2 - Exam GENERAL EXAM: Alert, pleasant, 57-year-old frail white female moderately dyspneic with conversation, but in no acute distress HEAD: Normocephalic/atraumatic. EYES: Normal reaction of pupils, equal size. Conjunctiva pink, sclera white. NOSE: Clear with pink turbinates. THROAT: No erythema or exudates. NECK: No masses, no JVD, no thyroid enlargement, no adenopathy. CHEST: No chest wall deformity. Symmetrical expansion. LUNGS: Lung sounds are diminished, with expiratory wheezing, diffuse rhonchi CVS: Regular rate and rhythm, normal S1 and S2, no gallops, no murmurs, no rubs ABDOMEN: Soft, nontender. No hepatosplenomegaly, normal bowel sounds, no guarding or rigidity. EXTREMITIES: No clubbing, no edema, no cyanosis, 2+ pulses and upper and lower extremities. MUSCULOSKELETAL: Muscle strength and tone normal. SPINE: No scoliosis or deformity SKIN: No rashes CENTRAL NERVOUS SYSTEM: Alert and oriented -3. No focal deficits, tone is normal in all 4 extremities. PSYCHIATRIC: Alert and oriented -3. Appropriate affect. Intact judgment and insight. - Labs CBC & Chem 7: 01/25/18 05:27 01/25/18 05:27 Labs: Microbiology - Last 24 Hours (Table) 01/20/18 14:25 Blood Culture - Preliminary Blood No Growth after 120 hours Assessment and Plan Plan: Assessment: Hypoxemic and hypercapnic respiratory failure, requiring intubation and mechanical ventilation secondary to severe COPD, status post extubation on January 22. Previous history of bronchogenic carcinoma, status post right-sided lobectomy followed by chemoradiation, with CT evidence of a new nodule in the left lower lobe and increasing perihilar abnormalities in the right chest consistent with possible recurrent lung cancer. PET scan was obtained from [facility] and revealed markedly abnormal study. Findings are consistent with extensive metastatic disease involving the lower neck, chest and abdomen. There is also multiple metastases involving the liver as well. Chronic and ongoing tobacco dependence History of CAD Fibromyalgia Benign essential hypertension History of previous myocardial infarction History of seizure disorder History of gastroesophageal reflux disease Migraine cephalgia History of irritable bowel syndrome Plan: Patient is stable from pulmonary standpoint, the results of the outpatient PET scan were discussed with her, showing patient has advanced metastatic disease, continue few of her poor lung function, she would not be a candidate for biopsy of the lung. She is meeting with hospice outside sales representative insurance today, she is waiting to speak to her family about her condition, and poor prognosis. From pulmonary standpoint she can be discharged home with hospice today, patient states she has no room at home for a hospital bed. Otherwise continue current medical treatment, with inhaled bronchodilators, Pulmicort and Perforomist, IV steroids. I performed a history & physical examination of the patient and discussed their management with my nurse practitioner, Pamela Cool. I reviewed the nurse practitioner's note and agree with the documented findings and plan of care. Lung sounds are positive for diffuse wheezes throughout the lung ardon. The findings and the impression was discussed with the patient. I attest to the documentation by the nurse practitioner. Time with Patient: Less than 30
[2018-01-26] MEDS ORDERED: ACETAMINOPHEN TAB 325 MG TAB PO PRN (14:21)
[2018-01-26] MEDS ORDERED: ATROPINE OPHTH SOLN 1% 5ML BTL SUBLINGUAL PRN (14:21)
[2018-01-26] MEDS ORDERED: LORazepam 0.5 MG TAB PO PRN (14:21)
[2018-01-26] MEDS ORDERED: ALBUTEROL NEBULIZED 2.5 MG/3 ML INHALATION PRN (14:28)
--- NOTE | 2018-01-26 14:28 | P.PN ---
Subjective Progress Note Date: 01/26/18 Principal diagnosis: Recurrent Lung Cancer This is a 57-year-old female with known history of severe underlying COPD, Ventilator Dependent Respiratory Failure (Hospitalized in November 2017), history of Right Lobectomy for lung cancer, treated adjuvantly with chemotherapy and radiation therapy at [facility]. Ms. Bonilla presents with symptoms of increased shortness of breath, and right- sided chest pain. Seen in the ER, CTA negative for pulmonary embolism, but it showed mostly postoperative changes in the right lung, with possible underlying pneumonia. Recurrent disease is unclear. After admission, Patient became hypoxic and went into respiratory failure, pulmonary notified and has been following. She was ventilated and transferred to the intensive care unit. Medical Oncology has been consulted for known history of Lung Cancer. She has been weaned off ventilator and is currently stable on 3 Liters Nasal Canula. She is sitting up in chair. She follows with Dr. Lopez for oncology treatment. Although since he left she is unsure who the oncologist is she is seeing now. 01/25/18 - We have Obtained the PET scan from [facility]. We have reviewed and does appear to be recurrent and progressive metastatic cancer. This has been discussed with the patient today in follow-up. She has no new complaints. COmplains of pain in sides as well as still difficulty in breathing. 01/26/18 - No new complaints today. She has decided to meet with hospice regarding her progressive disease and options of choosing comfort measures only , especially with her recurrent respiratory failures requiring intubation we agree this is a resonable option. Objective - Vital Signs Vital signs: Vital Signs Temp 98.3 F 01/26/18 06:55 Pulse 94 01/26/18 12:17 Resp 16 01/26/18 08:45 BP 152/64 01/26/18 06:55 Pulse Ox 99 01/26/18 07:59 Intake & Output 01/25/18 01/26/18 01/26/18 18:59 06:59 18:59 Intake Total 190 410 Output Total 795 1000 Balance -605 -590 Weight 41.6 kg 104.5 kg Intake: IV 190 160 Aztreonam 1 gm In Sodium 50 Chloride 0.9% 50 ml @ 100 mls/hr IVPB Q8HR [facility] Rx# :[id number] Sodium Chloride 0.9% 1, 140 160 000 ml @ 20 mls/hr IV . Q24H [facility] Rx#:[id number] Oral 250 Output: Urine 795 1000 Other: Voiding Method Bedside Commode Bedside Commode Bedside Commode # Voids 2 - Constitutional General appearance: Present: cooperative, mild distress, thin - EENT Eyes: Present: edentulous, PERRLA, poor dentition ENT: Present: NA/AT, normal oropharynx - Neck Details: Supple, Trachea Midline - Respiratory Respiratory: bilateral: diminished (Bibasilar), rhonchi, wheezing (Expiratory) - Cardiovascular Heart rate: 110 Rhythm: regular - Gastrointestinal General gastrointestinal: Present: normal bowel sounds, soft - Integumentary Integumentary: Present: pale - Neurologic Neurologic Comment(s): No focal defects Neurologic: Present: CNII-XII intact - Musculoskeletal Musculoskeletal: Present: generalized weakness, strength equal bilaterally - Psychiatric Psychiatric: Present: A&O x's 3, appropriate affect, intact judgment & insight - Labs CBC & Chem 7: 01/25/18 05:27 01/25/18 05:27 Labs: Microbiology - Last 24 Hours (Table) 01/20/18 14:25 Blood Culture - Preliminary Blood No Growth after 120 hours Assessment and Plan Plan: Assessment and Recommendations: 1. Hx: Lung Cancer Right Side: Status Post Lobectomy and Chemo and Radiation at [facility] - Please obtain recent Diagnostics to compare to current diagnostics here to assess for recurrent disease - Appears to have recurrent and progressive disease. We have recommended patient undergo a re-biopsy of the recurrent disease as with non-small cell lung cancer options for cell specific medications and other therapies do exist if certain molecular markers are present. At this time with her current respiratory status we would await her to improve and become more stable prior to undergoing a procedural biopsy. She would like to await re-biopsy until discharge and follow-up with her oncologist to undergo their recommendations at that time. - Al of her questions were answered, she understands that her disease is incurable and treatments would be done as a palliative measure. - In Light of her progressive stage 4 disease and underlying recurrent need for intubation and respiratory ventilation for respiratory failure patient has agreed to meet with hospice care and change her code status to a do not resucisitate. 2. Acute on Chronic Hypoxic Respiratory Failure - Extubated and stable on 3 Liters - Underlying COPD and exacerbation - Pulmonary 3. Cachexia and malnourished: - Patient admists to recent weight loss - Smoking cessation again enforced. Physician Attestation: I have completed the full history and physical of this patient and agree with above dictation by Alvina Santos NP. Dictated as a scribe.
[2018-01-26] MEDS: MORPHINE SULFATE 2 MG/ML SYRINGE IV PRN ×5 (14:40→23:31)
--- NOTE | 2018-01-26 16:02 | P.PN ---
Subjective Progress Note Date: 01/25/18 Personal being dictated for Dr. Juarez interval history: COPD with acute exacerbation and acute hypercapnic respiratory failure patient is a thin built female continues to smoke. Patient is presently on 3 L of onset in with the significant wheezing on exam. 01/24/2018 Patient is still wheezing quite a bit is using accessory muscles of breathing. Constitutional: Denied any fatigue denied any fever. Cardio vascular: denied any chest pain, palpitations Gastrointestinal denied any nausea vomiting Pulmonary: Continue to complain of some shortness of breath. Neurologic denied any new focal deficits 01/25/[address] reporting new left lower lobe nodule, increasing perihilar abnormalities in the right chest highly suspicious of recurrent lung CA with [facility] PET scan reporting metastases to the neck, chest, liver as per pulmonary. Patient informed of all these findings as per pulmonary, Dr. Gallardo. Chest x-ray stable. afebrile, blood and sputum cultures negative. Objective - Vital Signs Vital signs: Vital Signs Temp 98.0 F 01/25/18 08:00 Pulse 92 01/25/18 13:00 Resp 19 01/25/18 13:00 BP 110/67 01/25/18 14:00 Pulse Ox 98 01/25/18 13:00 Intake & Output 01/24/18 01/25/18 01/25/18 18:59 06:59 18:59 Intake Total 1930 360 190 Output Total 1430 1650 695 Balance 500 -1290 -505 Weight 41.6 kg 41.6 kg Intake: IV 610 260 190 Aztreonam 1 gm In Sodium 150 50 Chloride 0.9% 50 ml @ 100 mls/hr IVPB Q8HR [facility] Rx# :[id number] Magnesium Sulfate-D5w Pmx 200 1 gm In Dextrose/Water 1 100ml.bag @ 100 mls/hr IVPB Q1H [facility] Rx#: [id number] Sodium Chloride 0.9% 1, 260 260 140 000 ml @ 20 mls/hr IV . Q24H [facility] Rx#:[id number] Oral 1320 100 Output: Urine 1430 1650 695 Other: Voiding Method Indwelling Catheter Indwelling Catheter Indwelling Catheter - Exam GENERAL: The patient is alert and oriented x3, patient is in moderate respiratory distress using accessory also breathing. Thin built cachectic secondary to COPD HEENT: Pupils are round and equally reacting to light. EOMI. No scleral icterus. No conjunctival pallor. Normocephalic, atraumatic. No pharyngeal erythema. No thyromegaly. CARDIOVASCULAR: S1 and S2 present. No murmurs, rubs, or gallops. PULMONARY: Diminished air entry into bilateral lung ardon at the significant expiratory wheezing. Rhonchus breath sounds using accessory muscles of breathing ABDOMEN: Soft, nontender, nondistended, normoactive bowel sounds. No palpable organomegaly. MUSCULOSKELETAL: No joint swelling or deformity. EXTREMITIES: No cyanosis, clubbing, or pedal edema. NEUROLOGICAL: Gross neurological examination did not reveal any focal deficits. SKIN: No rashes. Microbiology 01/20/18 14:25 Blood Blood Culture - Preliminary No Growth after 120 hours 01/20/18 23:28 Sputum Gram Stain - Final 01/20/18 23:28 Sputum Sputum Culture - Final - Labs CBC & Chem 7: 01/25/18 05:27 01/25/18 05:27 Labs: Abnormal Lab Results - Last 24 Hours (Table) 01/24/18 01/24/18 01/25/18 Range/Units 17:16 20:39 05:27 RDW 16.6 H (11.5-15.5) % Lymphocytes # 0.3 L (1.0-4.8) k/uL Chloride (98-107) mmol/L Carbon Dioxide (22-30) mmol/L Creatinine (0.52-1.04) mg/dL Glucose (74-99) mg/dL POC Glucose (mg/dL) 156 H 155 H (75-99) mg/dL 01/25/18 01/25/18 01/25/18 Range/Units 05:27 06:59 11:42 RDW (11.5-15.5) % Lymphocytes # (1.0-4.8) k/uL Chloride 90 L (98-107) mmol/L Carbon Dioxide 39 H (22-30) mmol/L Creatinine 0.30 L (0.52-1.04) mg/dL Glucose 138 H (74-99) mg/dL POC Glucose (mg/dL) 132 H 150 H (75-99) mg/dL Microbiology - Last 24 Hours (Table) 01/20/18 14:25 Blood Culture - Preliminary Blood No Growth after 96 hours Assessment and Plan Assessment: Acute on chronic Hypoxemic and hypercapnic respiratory failure, requiring intubation and mechanical ventilation secondary to severe COPD, status post extubation on January 22. Patient is on systemic steroids inhaled treatments without significant improvement. patient has severely advanced COPD, prognosis is extremely poor. In addition now presenting with suspected recurrent lung CA , bronchogenic with metastases to the neck, chest, liver. Previous history of bronchogenic carcinoma, status post right-sided lobectomy followed by chemoradiation, pulmonary following the patient History of CAD Fibromyalgia Benign essential hypertension seizure disorder gastroesophageal reflux disease Migraine cephalgia irritable bowel syndrome Plan: Continue on current medication regime ,monitoring and symptomatic treatment. Prognosis poor. Transfer out of ICU to oncology. Maintained Decadron, nebulized bronchodilators. Informational hospice consult initiated. Oncology offered option of lung biopsy; both Dr. Juarez and Dr. Gallardo spoke with patient in depth and strongly feel patient is not a candidate for biopsy, high risks. Patient wishes to proceed with comfort care, but wishes to talk to her brother first. Maintain supportive care. The impression and plan of care has been dictated as directed. : I performed a history and examination of this patient, discussed the same with the dictator. I agree with the dictator's note ,documented as a scribe. Any additional findings or plans will be noted.
--- NOTE | 2018-01-26 16:21 | P.PN ---
Subjective Progress Note Date: 01/26/18 Personal being dictated for Dr. Juarze interval history: COPD with acute exacerbation and acute hypercapnic respiratory failure patient is a thin built female continues to smoke. Patient is presently on 3 L of onset in with the significant wheezing on exam. 01/24/2018 Patient is still wheezing quite a bit is using accessory muscles of breathing. Constitutional: Denied any fatigue denied any fever. Cardio vascular: denied any chest pain, palpitations Gastrointestinal denied any nausea vomiting Pulmonary: Continue to complain of some shortness of breath. Neurologic denied any new focal deficits 01/25/[address] reporting new left lower lobe nodule, increasing perihilar abnormalities in the right chest highly suspicious of recurrent lung CA with [facility] PET scan reporting metastases to the neck, chest, liver as per pulmonary. Patient informed of all these findings as per pulmonary, Dr. Gallardo. Chest x-ray stable. afebrile, blood and sputum cultures negative. 01/26/2018 patient requesting CODE STATUS be changed to no code, no CPR, no intubation and to proceed with comfort care. requesting to go home tomorrow. Discussed patient's morphine ALLERGY. Patient stated that with morphine, she developed lightheadedness, dizziness, almost passing out upon arising after receiving. Appears to be a side affect of morphine not an ALLERGIC reaction- orthostatic hypotension.Informational hospice meeting completed. patient requesting comfort care be initiated today, with morphine for breakthrough pain. Objective - Vital Signs Vital signs: Vital Signs Temp 98.3 F 01/26/18 06:55 Pulse 94 01/26/18 12:17 Resp 16 01/26/18 08:45 BP 152/64 01/26/18 06:55 Pulse Ox 99 01/26/18 07:59 Intake & Output 01/25/18 01/26/18 01/26/18 18:59 06:59 18:59 Intake Total 190 410 Output Total 795 1000 Balance -605 -590 Weight 41.6 kg 104.5 kg Intake: IV 190 160 Aztreonam 1 gm In Sodium 50 Chloride 0.9% 50 ml @ 100 mls/hr IVPB Q8HR SANDRA Rx# :[id number] Sodium Chloride 0.9% 1, 140 160 000 ml @ 20 mls/hr IV . Q24H SANDRA Rx#:[id number] Oral 250 Output: Urine 795 1000 Other: Voiding Method Bedside Commode Bedside Commode Bedside Commode # Voids 2 - Exam GENERAL: The patient is alert and oriented x3, patient is in moderate respiratory distress using accessory also breathing. Thin built cachectic secondary to COPD HEENT: Pupils are round and equally reacting to light. EOMI. No scleral icterus. No conjunctival pallor. Normocephalic, atraumatic. No pharyngeal erythema. No thyromegaly. CARDIOVASCULAR: S1 and S2 present. No murmurs, rubs, or gallops. PULMONARY: Diminished air entry into bilateral lung ardon at the significant expiratory wheezing. Rhonchus breath sounds using accessory muscles of breathing ABDOMEN: Soft, nontender, nondistended, normoactive bowel sounds. No palpable organomegaly. MUSCULOSKELETAL: No joint swelling or deformity. EXTREMITIES: No cyanosis, clubbing, or pedal edema. NEUROLOGICAL: Gross neurological examination did not reveal any focal deficits. SKIN: No rashes. - Labs CBC & Chem 7: 01/25/18 05:27 01/25/18 05:27 Labs: Microbiology - Last 24 Hours (Table) 01/20/18 14:25 Blood Culture - Preliminary Blood No Growth after 120 hours Assessment and Plan Assessment: Acute on chronic Hypoxemic and hypercapnic respiratory failure, requiring intubation and mechanical ventilation secondary to severe COPD, status post extubation on January 22. Patient is on systemic steroids inhaled treatments without significant improvement. patient has severely advanced COPD, prognosis is extremely poor. In addition now presenting with suspected recurrent lung CA , bronchogenic with metastases to the neck, chest, liver. Previous history of bronchogenic carcinoma, status post right-sided lobectomy followed by chemoradiation, pulmonary following the patient History of CAD Fibromyalgia Benign essential hypertension seizure disorder gastroesophageal reflux disease Migraine cephalgia irritable bowel syndrome No code, no CPR, no intubation Comfort care Plan: Continue on current medication regime ,monitoring and symptomatic treatment. As mentioned above, comfort care being initiated as per patient's request. Hospice will be available in patient's home tomorrow. Discharge planning in progress for tomorrow. The impression and plan of care has been dictated as directed. : I performed a history and examination of this patient, discussed the same with the dictator. I agree with the dictator's note ,documented as a scribe. Any additional findings or plans will be noted.
[2018-01-26] MEDS ORDERED: BISACODYL 5 MG TABLET.DR PO STA (16:58)
[2018-01-26] MEDS: LEVOFLOXACIN 500MG-D5W PMX 500 MG in DEXTROSE/WATER 1 100ML.BAG IVPB SCH (17:54)
[2018-01-26] MEDS: SODIUM CHLORIDE 0.9% 1,000 ML IV SCH (18:05)
[2018-01-27] MEDS: MORPHINE SULFATE 2 MG/ML SYRINGE IV PRN ×3 (03:31→17:29)
[2018-01-27] MEDS: DEXAMETHASONE SOD PHOSPHATE 4 MG/ML 1 ML VIAL IV SCH ×2 (06:39→11:35)
[2018-01-27] MEDS: ALPRAZolam 0.5 MG TAB PO PRN ×2 (06:50→12:53)
[2018-01-27] MEDS: HYDROcodone/APAP 10-325MG 1 EACH TAB PO PRN ×2 (06:50→14:40)
--- NOTE | 2018-01-27 08:03 | XR ---
EXAMINATION: XR chest 1V DATE AND TIME: 01/27/2018 6:33 AM ORDERING PROVIDER: Dannie Gallardo CLINICAL INDICATION: HUMBERTO TECHNIQUE: AP portable COMPARISON: AP portable 01/26/2018 at 6:19 AM DESCRIPTION: Left Port-A-Cath tip superimposing the right atrium, unchanged. Right hemithorax volume loss redemonstrated with chronic-appearing pleural parenchymal changes. The overall lung inflation pattern is identical to yesterday's study. The cardiomediastinal silhouette and bones and soft tissues are unremarkable. IMPRESSION: STABLE APPEARANCE. NO NEW PROCESS.
[2018-01-27] MEDS: DRONEDARONE 400 MG TAB PO SCH ×2 (08:14→17:19)
[2018-01-27] MEDS: AZTREONAM 1 GM in SODIUM CHLORIDE 0.9% 50 ML IVPB SCH ×2 (08:14→15:48)
[2018-01-27] MEDS: amLODIPine 5 MG TAB PO SCH (08:15)
[2018-01-27] MEDS: ATENOLOL 25 MG TAB PO SCH (08:15)
[2018-01-27] MEDS: CYPROHEPTADINE 4 MG TABLET PO SCH ×2 (08:15→16:12)
[2018-01-27] MEDS: CLOPIDOGREL 75 MG TAB PO SCH (08:16)
[2018-01-27] MEDS: GABAPENTIN 300 MG CAP PO SCH (08:16)
[2018-01-27] MEDS: FLUDROCORTISONE 0.1 MG TAB PO SCH (08:16)
[2018-01-27] MEDS: LACTULOSE 20 GM/30 ML CUP PO SCH (08:17)
[2018-01-27] MEDS: ISOSORBIDE MONONITRATE ER 30 MG TAB.ER.24H PO SCH (08:17)
[2018-01-27] MEDS: lamoTRIgine 100 MG TAB PO SCH (08:17)
[2018-01-27] MEDS: PANTOPRAZOLE 40 MG/10 ML VIAL IVP SCH (08:18)
[2018-01-27] MEDS: NICOTINE 14MG/24HR PATCH TRANSDERM SCH (08:18)
[2018-01-27] MEDS: MONTELUKAST 10 MG TAB PO SCH (08:18)
[2018-01-27] MEDS: RANOLAZINE 500 MG TAB.ER.12H PO SCH (08:19)
[2018-01-27] MEDS: Lubiprostone [Amitiza] PO SCH (08:19)
--- NOTE | 2018-01-27 09:25 | P.PN ---
Subjective Progress Note Date: 01/27/18 Principal diagnosis: Respiratory failure secondary to severe COPD Progress note dated 01/22/2018 57-year-old female with history of acute hypoxemic respiratory failure secondary to severe COPD. She has a previous history of lung cancer with previous lobectomy on the right side followed by chemotherapy and radiation done at [facility]. She is apparently being followed closely by a oncologist does not see a veterinary assistant technician on a regular basis. Back in November she had an episode of respiratory failure requiring intubation and mechanical ventilation and she was taken care of by my partner at that time. She was discharged within a few days. In addition to above, she has a history of a bronchitic bronchogenic carcinoma status post lobectomy radiation and chemotherapy CAD fibromyalgia essential hypertension previous myocardial infarction seizure disorder GERD and migraine cephalgia and irritable bowel syndrome. The patient is currently on the volume assist control mode with a rate of 18, tidal volume 325, FiO2 35% and PEEP of 7. The patient's blood gases show a PaO2 of 87 PaCO2 of 51 and pH 7.40. The patient is on propofol 70 mics per kilogram per minute saline at 100 mL an hour and vital AF at 40 with a goal of 40. She is a no CPR patient. She was intubated on the . She was admitted on the . Chest x-ray showed no acute process. Progress note dated 01/23/2018 57-year-old female with a history of acute hypoxemic respiratory failure secondary to severe COPD. She has a previous history of lung cancer with previous lobectomy on the right side followed by chemoradiation. More recently , she had a CT of the chest which suggested a nodule on the left lower lobe and increasing density in the right. Had a region possibly consistent with recurrent cancer. We will have oncology see her. She was extubated yesterday. Her arterial blood gases were excellent and weaning parameters were good. She has a history of follow-up COPD bronchogenic carcinoma with previous lobectomy radiation and chemotherapy CAD fibromyalgia essential hypertension previous myocardial infarction seizure disorder GERD and migraine cephalgia as well as irritable bowel syndrome. The patient is currently on nasal O2 at 3 L and also a saline IV at 100 mL an hour. I did discuss the CAT scan result on her dated January 20. She was unaware of the findings. She can pass that along to her family. Again, oncology consultation will be requested. She probably should stay in the ICU for another 24 hours. Progress note dated 01/24/2018 57-year-old female with a history of acute hypoxemic respiratory failure secondary to severe COPD. She does have a previous history of lung cancer with previous lobectomy on the right side followed by chemoradiation. More recently , she was CT scan of the chest was suggested a nodule on the left lower lobe and increasing mass/density in the right hilum. She did have a recent PET scan in the year and that information is apparently being sent over here. This could be consistent with recurrent lung cancer. We will have oncology see her. She was extubated 2 days ago. Her weaning parameters and blood gases were excellent at the time. In addition, she has a history of COPD, bronchogenic carcinoma as above, CAD, fibromyalgia, essential hypertension, previous myocardial infarction, seizure disorder, GERD, migraine cephalgia, and irritable bowel syndrome. The patient's currently on O2 at 3 L by nasal cannula. Her IVs saline at 100 mL now her to be turned on the KVO. Her chest x -rays consistent with a COPD. I did explain the recent CAT scan findings to her and she understands. She's can pass that information on to her family. Oncology did see her. The results of recent PET scan is being sent over from [facility]. Progress note dated 01/27/2018 57-year-old female with a history of acute hypoxemic respiratory failure secondary to severe COPD. She does have a history of lung cancer with previous lobectomy on the right side followed by chemoradiation. More recently, she was computed tomography scan of the chest which suggested a nodule on the left lower lobe and increasing mass/density in the right hilum. A PET scan unfortunately done at [facility] shows widely metastatic disease. We think the patient should be treated conservatively. One of the oncologist here thought the patient should benefit from another lung biopsy but the patient certainly too frail for that. I think she'll go back and see her oncologist in the [place] area. She has a history of COPD, bronchogenic carcinoma, CAD, fibromyalgia, essential hypertension, previous myocardial infarction, seizure disorder, GERD, migraines and IBS. The patient will go home on oxygen 24 7. Objective - Vital Signs Vital signs: Vital Signs Temp 97.5 F L 01/27/18 06:05 Pulse 77 01/27/18 06:05 Resp 20 06/16/18 06:05 BP 144/66 01/27/18 06:05 Pulse Ox 98 01/27/18 06:05 Intake & Output 01/26/18 01/27/18 01/27/18 18:59 06:59 18:59 Intake Total 240 690 Balance 240 690 Weight 45.4 kg Intake: Oral 240 690 Other: Voiding Method Bedside Commode Bedside Commode # Voids 3 1 # Bowel Movements 1 - Exam No acute distress, oriented 3, with nasal O2 in place. HEENT examination is grossly unremarkable. Mucous membranes are moist. No oral lesions. Neck supple. Full range of motion. No adenopathy thyromegaly or neck vein distention. Cardiovascular examination reveals regular rhythm rate. S1-S2 normal. No S3 or S4. No discernible murmur noted. Lungs reveal coarse bilateral expiratory and inspiratory wheezes and rhonchi. Breath sounds equal bilaterally. Breath sounds are diminished throughout. There is prolongation on forced maneuver. No crackles appreciated. Abdomen soft bowel sounds are heard. No masses or tenderness. Extremities are intact. No cyanosis clubbing or edema. Skin is without rash or lesion. Neurologic examination is brief but nonfocal. - Labs CBC & Chem 7: 01/25/18 05:27 01/25/18 05:27 Labs: Microbiology - Last 24 Hours (Table) 01/20/18 14:25 Blood Culture - Final Blood No Growth after 144 hours Assessment and Plan Assessment: Assessment Hypoxemic and hypercapnic respiratory failure, requiring intubation and mechanical ventilation secondary to severe COPD, status post extubation on January 22. Doubt pneumonia Previous history of bronchogenic carcinoma, status post right-sided lobectomy followed by chemoradiation, with CT evidence of a new nodule in the left lower lobe and increasing perihilar abnormalities in the right chest consistent with possible recurrent lung cancer. Diffusely metastatic lung cancer, based on a recent PET scan done at [facility]. History of CAD Fibromyalgia Benign essential hypertension History of previous myocardial infarction History of seizure disorder History of gastroesophageal reflux disease Migraine cephalgia History of irritable bowel syndrome Plan: Plan dated 01/22/2018 The patient's doing well. We will attempt to see if we can wait the patient up get some weaning parameters and a cuff leak test and determine whether or not the patient could be weaned and extubated. The patient's blood gases are reasonable. The vent settings are excellent. We'll hold the propofol. Additional recommendations and suggestions are forthcoming. White count 5.6, hemoglobin is 11.1 and platelet count is normal. Sodium potassium chloride CO2 anion gap and renal function is all within normal range. Microbiology is negative thus far. Medications are reviewed and are appropriate. Local care time 36 minutes Plan dated 01/23/2018 The patient is doing a bit better today. She was disappointed to find out about the results of the CAT scan. She's currently not out of the brewster. She still quite bronchospastic. We will ask oncology to see her. She continues on updrafts with DuoNeb as well as Pulmicort and Perforomist twice a day. She also continues on Decadron every 6 hours. She apparently has an ALLERGY to Solu -Medrol. Additional recommendations and suggestions are forthcoming. She likely will stay in the unit for another 24 hours. Critical care time 36 minutes Plan dated 01/24/2018 The patient is doing about the same. Still very short of breath with conversational dyspnea. She is mildly tachypneic and dyspneic. The patient has been told about her recent CAT scan results. Results of her recent PET scan over [facility] are being faxed over. She remains on her usual medications. I the patient otherwise is doing about the same. Microbiologic studies have all been negative. Lab data includes a white count of 5.6 in 11.9 hematocrit 37.8 platelet count 214,000. Sodium potassium are normal chloride 95 CO2 38 BUN and creatinine are normal. Critical care time 34 minutes Plan dated 01/27/2018 The patient may be discharged home today. I think that's a smart thing. The patient will be discharged home on oxygen 24 7. In addition, the patient will follow-up with her own oncologist. Overall prognosis is very poor. I really think that any other procedures would be inappropriate for this patient. I focused on quality of life and not quantity of life. Additional recommendations and suggestions are forthcoming. Time with Patient: Less than 30
[2018-01-27] MEDS: IPRATROPIUM-ALBUTEROL 3 ML NEB INHALATION SCH ×3 (09:40→15:13)
[2018-01-27] MEDS: FORMOTEROL FUMARATE 20 MCG/2 ML NEBU INHALATION SCH (09:40)
[2018-01-27] MEDS: BUDESONIDE 1 MG/2 ML NEBU INHALATION SCH (09:40)
--- NOTE | 2018-01-27 14:25 | P.DS ---
Providers Date of admission: 01/20/18 18:43 Attending physician: Opal Webster Consults: 01/20/18 16:38 Consult Physician Routine Consulting Provider: Suhas Chin Consult Reason/Comments: copd Do you want consulting provider notified?: Yes 01/20/18 18:43 Consult Physician Stat Consulting Provider: Suhas Chin Consult Reason/Comments: Severe COPD, lung mass Do you want consulting provider notified?: Yes 01/23/18 11:36 Consult Physician Routine Consulting Provider: Noah Hess Consult Reason/Comments: Lung CA Do you want consulting provider notified?: Already Contacted Primary care physician: Stated None Hospital Course: Patient was to advanced COPD he had a history of non-small cell lung cancer which is treated couple years ago found to have PET scan findings of recurrence of non-small cell lung cancer. After extensive discussion with the patient, patient agreed on hospice and patient is DO NOT RESUSCITATE at this time patient is being discharged to a facility as hospice. All her medications will be discontinued except for comfort medication and depression medication. Patient is comfortable not in respiratory distress Please refer to the progress note for her chronic medical problems and hospitalization course Patient Condition at Discharge: Good Plan - Discharge Summary Discharge Rx Participant: No New Discharge Prescriptions: Continue Escitalopram [Lexapro] 20 mg PO DAILY #10 tab Discontinued Fludrocortisone [Florinef] 0.1 mg PO BID Ranolazine [Ranexa] 500 mg PO BID Pitavastatin Calcium [Livalo] 4 mg PO DAILY Montelukast [Singulair] 10 mg PO DAILY LORazepam [Ativan] 0.5 mg PO QID PRN PRN Reason: Anxiety HYDROcodone/APAP 10-325MG [Brockton 10-325] 1 tab PO TID Fluticasone/Salmeterol [Advair 500-50 Diskus] 1 puff INHALATION RT-DAILY Aspirin 81 mg PO DAILY lamoTRIgine [LaMICtal] 200 mg PO DAILY Potassium Chloride ER [K-Dur 20] 20 meq PO DAILY Nitroglycerin Sl Tabs [Nitrostat] 0.4 mg SUBLINGUAL Q5M PRN PRN Reason: Chest Pain Ipratropium/Albuterol Sulfate [Combivent Respimat Inhaler] 1 puff INHALATION RT-QID Ezetimibe [Zetia] 10 mg PO DAILY Lubiprostone [Amitiza] 8 mcg PO DAILY Clopidogrel [Plavix] 75 mg PO DAILY Isosorbide Mononitrate ER [Imdur] 30 mg PO DAILY Ipratropium-Albuterol Nebulize [Duoneb 0.5 mg-3 mg/3 ml Soln] 3 ml INHALATION RT-QID #120 ampul.neb amLODIPine [Norvasc] 5 mg PO BID #60 tab cloNIDine HCL [Catapres] 0.1 mg PO BID #60 tab Lactulose [Cephulac] 30 gm PO DAILY #300 ml Atenolol [Tenormin] 25 mg PO BID #60 tab Gabapentin [Neurontin] 300 mg PO BID Dronedarone [Multaq] 400 mg PO AC-BID Cyproheptadine HCl [Periactin] 4 mg PO TID Omeprazole [PriLOSEC] 40 mg PO BID Discharge Medication List Escitalopram [Lexapro] 20 mg PO DAILY #10 tab 01/27/18 [Rx] Follow up Appointment(s)/Referral(s): [facility], [NON-STAFF] - As Needed None,Stated [Primary Care Provider] - 1-2 days
[2018-01-27] MEDS: LEVOFLOXACIN 500MG-D5W PMX 500 MG in DEXTROSE/WATER 1 100ML.BAG IVPB SCH (16:13)
[2018-01-27 16:56] VITALS: BP 127/67; PULSE 89; RESP 16; TEMP 98.3
== END 2018-01-27 18:18 | disposition hospice, inpatient (51) | DRG 208 ==
LOC: EC 14:14 → 6SEL 18:43 → 6ICU 22:33 → 5ONC 01-25 14:29
PROVIDERS: ADMIT Hospitalist; ATTEND Hospitalist
PROC: 5A1945Z Respiratory Ventilation, 24-96 Consecutive Hours (ICD-10-PCS; principal; 2018-01-20)
PROC: 0BH17EZ Insertion of Endotracheal Airway into Trachea, Via Natural or Artificial Opening (ICD-10-PCS; 2018-01-20)
PROC: 5A09357 Assistance with Respiratory Ventilation, Less than 24 Consecutive Hours, Continuous Positive Airway Pressure (ICD-10-PCS; 2018-01-20)
DX: J44.0 Chronic obstructive pulmonary disease with (acute) lower respiratory infection (principal); J96.21 Acute and chronic respiratory failure with hypoxia; J96.22 Acute and chronic respiratory failure with hypercapnia; E44.1 Mild protein-calorie malnutrition; R64 Cachexia; E87.2 Acidosis; C34.32 Malignant neoplasm of lower lobe, left bronchus or lung; Z68.1 Body mass index [BMI] 19.9 or less, adult; C78.7 Secondary malignant neoplasm of liver and intrahepatic bile duct; J44.1 Chronic obstructive pulmonary disease with (acute) exacerbation; J20.9 Acute bronchitis, unspecified; Z66 Do not resuscitate; Z51.5 Encounter for palliative care; I25.10 Atherosclerotic heart disease of native coronary artery without angina pectoris; M79.7 Fibromyalgia; K21.9 Gastro-esophageal reflux disease without esophagitis; I10 Essential (primary) hypertension; I25.2 Old myocardial infarction; G40.909 Epilepsy, unspecified, not intractable, without status epilepticus; E78.5 Hyperlipidemia, unspecified; K58.2 Mixed irritable bowel syndrome; G43.909 Migraine, unspecified, not intractable, without status migrainosus; F32.9 Major depressive disorder, single episode, unspecified; F41.9 Anxiety disorder, unspecified; J31.0 Chronic rhinitis; M81.0 Age-related osteoporosis without current pathological fracture; G47.00 Insomnia, unspecified; K44.9 Diaphragmatic hernia without obstruction or gangrene; M19.91 Primary osteoarthritis, unspecified site; G89.29 Other chronic pain; M54.2 Cervicalgia; K63.9 Disease of intestine, unspecified; M25.561 Pain in right knee; M26.609 Unspecified temporomandibular joint disorder, unspecified side; R54 Age-related physical debility; F17.210 Nicotine dependence, cigarettes, uncomplicated; Z71.6 Tobacco abuse counseling; Z71.3 Dietary counseling and surveillance; Z99.81 Dependence on supplemental oxygen; Z79.82 Long term (current) use of aspirin; Z79.02 Long term (current) use of antithrombotics/antiplatelets; Z79.51 Long term (current) use of inhaled steroids; Z79.52 Long term (current) use of systemic steroids; Z79.891 Long term (current) use of opiate analgesic; Z79.899 Other long term (current) drug therapy; Z85.118 Personal history of other malignant neoplasm of bronchus and lung; Z95.5 Presence of coronary angioplasty implant and graft; Z90.710 Acquired absence of both cervix and uterus; Z90.2 Acquired absence of lung [part of]; Z92.3 Personal history of irradiation; Z92.21 Personal history of antineoplastic chemotherapy; Z86.73 Personal history of transient ischemic attack (TIA), and cerebral infarction without residual deficits; Z88.5 Allergy status to narcotic agent; Z88.0 Allergy status to penicillin; Z88.8 Allergy status to other drugs, medicaments and biological substances; Z82.49 Family history of ischemic heart disease and other diseases of the circulatory system; Z81.1 Family history of alcohol abuse and dependence; Z80.9 Family history of malignant neoplasm, unspecified
CPT/HCPCS: 36415; 36600; 71045; 71275; 80048; 80053; 82550; 82553; 82805; 83036; 83615; 83735; 83880; 84100; 84484; 85025; 85379; 85610; 85730; 87040; 87070; 87205; 93005; 94002; 94003; 94640; 94660; 94760; 96361; 96365; 96367; 96372; 96375; 96376; 99291